=== PATIENT | female | born 1935 | race Caucasian/White ===

== ENCOUNTER → 2016-12-16 | Outpatient (CLI) | payer MEDICARE, OTHER | LOC: M WUC 08:40 | PROVIDERS: ATTEND Nurse Practitioner Adult Health | DX: E11.9 Type 2 diabetes mellitus without complications (principal); E03.9 Hypothyroidism, unspecified; E55.9 Vitamin D deficiency, unspecified; E53.8 Deficiency of other specified B group vitamins ==

== ENCOUNTER → 2017-07-01 | Outpatient (REF) | payer MEDICARE, OTHER ==
[2017-07-01 12:41] LABS: MEAN CORPUSCULAR HGB CONC 32.1 g/dl (32.0-36.5); MEAN CORPUSCULAR VOLUME 99.5 fl (80.0-96.0); PLATELET COUNT, AUTOMATED 288 10^3/uL (150-450); RED CELL DISTRIBUTION WIDTH 12.9 % (11.5-14.5); WHITE BLOOD COUNT 8.4 10^3/uL (4.0-10.0)
[2017-07-01 13:28] LABS: ALBUMIN 3.6 GM/DL (3.2-5.2); ALBUMIN/GLOBULIN RATIO 0.95 (1.00-1.93); BILIRUBIN,TOTAL 0.5 MG/DL (0.2-1.0); CALCIUM LEVEL 9.5 MG/DL (8.8-10.2); CREATININE FOR GFR 1.33 MG/DL (0.55-1.02); GLOMERULAR FILTRATION RATE 40.6 (>32); POTASSIUM SERUM 4.6 MEQ/L (3.5-5.1); TOTAL PROTEIN 7.4 GM/DL (6.4-8.2)
== END ==
LOC: M SFHCPLAZ 09:16
PROVIDERS: ATTEND Nurse Practitioner Adult Health
DX: Z00.00 Encounter for general adult medical examination without abnormal findings (principal); E03.9 Hypothyroidism, unspecified; E11.9 Type 2 diabetes mellitus without complications; E55.9 Vitamin D deficiency, unspecified

== ENCOUNTER → 2017-12-22 | Outpatient (REF) | payer MEDICARE, OTHER ==
[2017-12-22 13:40] LABS: ESTIMATED AVERAGE GLUCOSE 148 MG/DL (60-110); HEMOGLOBIN A1c 6.8 %
[2017-12-22 13:41] LABS: ALBUMIN 3.6 GM/DL (3.2-5.2); ALBUMIN/GLOBULIN RATIO 0.97 (1.00-1.93); ALKALINE PHOSPHATASE 56 U/L (45-117); ALT/SGPT 22 U/L (12-78); ANION GAP 8 MEQ/L (8-16); AST/SGOT 22 U/L (7-37); BILIRUBIN,TOTAL 0.4 MG/DL (0.2-1.0); BLOOD UREA NITROGEN 20 MG/DL (7-18); CALCIUM LEVEL 9.4 MG/DL (8.8-10.2); CARBON DIOXIDE LEVEL 29 MEQ/L (21-32); CHLORIDE LEVEL 104 MEQ/L (98-107); CREATININE FOR GFR 1.25 MG/DL (0.55-1.30); GLOMERULAR FILTRATION RATE 43.5 (>32); GLUCOSE, FASTING 110 MG/DL (70-100); SODIUM LEVEL 141 MEQ/L (136-145); TOTAL PROTEIN 7.3 GM/DL (6.4-8.2)
[2017-12-22 13:50] LABS: POTASSIUM SERUM 5.2 MEQ/L (3.5-5.1)
[2017-12-22 14:18] LABS: TOTAL 25(OH) VITAMIN D 61.9 NG/ML (30.0-100.0)
== END ==
LOC: M SFHCPLAZ 11:06
DX: E11.9 Type 2 diabetes mellitus without complications (principal); E03.9 Hypothyroidism, unspecified; E55.9 Vitamin D deficiency, unspecified; N28.9 Disorder of kidney and ureter, unspecified
CPT/HCPCS: 84443

== ENCOUNTER → 2018-12-29 | Outpatient (REF) | payer MEDICARE, OTHER ==
[2018-12-29 14:04] LABS: ALBUMIN 3.4 GM/DL (3.2-5.2); BILIRUBIN,TOTAL 0.3 MG/DL (0.2-1.0); CREATININE FOR GFR 1.33 MG/DL (0.55-1.30); CREATININE, URINE 86.5 MG/DL; GLOMERULAR FILTRATION RATE 40.4 (>32); MALB URINE SIEMENS 9.4 MG/L; MAU/CREAT RATIO 10.8 MCG/MG (0.0-30.0); POTASSIUM SERUM 4.9 MEQ/L (3.5-5.1); THYROID STIMULATING HORMONE 1.58 uIU/ML (0.358-3.740); TOTAL 25(OH) VITAMIN D 69.4 NG/ML (30.0-100.0); TOTAL PROTEIN 7.5 GM/DL (6.4-8.2)
[2018-12-29 14:19] LABS: HEMOGLOBIN A1c 7.3 %
== END ==
LOC: M SFHCPLAZ 11:13
PROVIDERS: ATTEND Nurse Practitioner Adult Health
DX: N28.9 Disorder of kidney and ureter, unspecified (principal); E11.9 Type 2 diabetes mellitus without complications; E03.9 Hypothyroidism, unspecified; E55.9 Vitamin D deficiency, unspecified

== ENCOUNTER → 2019-06-29 | Outpatient (REF) | payer MEDICARE, OTHER ==
[2019-06-29 11:48] LABS: HEMATOCRIT 45.3 % (36.0-47.0); HEMOGLOBIN 13.9 g/dl (12.0-15.5); MEAN CORPUSCULAR HEMOGLOBIN 31.5 pg (27.0-33.0); MEAN CORPUSCULAR HGB CONC 30.7 g/dl (32.0-36.5); MEAN CORPUSCULAR VOLUME 102.7 fl (80.0-96.0); PLATELET COUNT, AUTOMATED 322 10^3/uL (150-450); RED BLOOD COUNT 4.41 10^6/uL (4.00-5.40); WHITE BLOOD COUNT 10.3 10^3/uL (4.0-10.0)
[2019-06-29 12:16] LABS: HEMOGLOBIN A1c 7.4 %
[2019-06-29 12:32] LABS: ALBUMIN 3.7 GM/DL (3.2-5.2); BILIRUBIN,TOTAL 0.5 MG/DL (0.2-1.0); CALCIUM LEVEL 9.8 MG/DL (8.8-10.2); CHOLESTEROL RISK RATIO 1.795 (<5); CREATININE FOR GFR 1.57 MG/DL (0.55-1.30); GLOMERULAR FILTRATION RATE 33.3 (>32); POTASSIUM SERUM 5.4 MEQ/L (3.5-5.1); THYROID STIMULATING HORMONE 4.44 uIU/ML (0.358-3.740); TOTAL PROTEIN 7.5 GM/DL (6.4-8.2)
== END ==
LOC: M SFHCPLAZ 09:22
PROVIDERS: ATTEND Nurse Practitioner Adult Health
DX: E03.9 Hypothyroidism, unspecified (principal); E53.8 Deficiency of other specified B group vitamins; E11.9 Type 2 diabetes mellitus without complications; Z13.220 Encounter for screening for lipoid disorders

== ENCOUNTER 2020-01-04 17:39 | Inpatient (IN) | payer MEDICARE, BC, OTHER ==
[~2020-01-04] VITALS: Ht 175.3 cm; Wt 62.9 kg
--- NOTE | 2020-01-04 18:39 | REP ---
Portable chest x-ray: Sitting AP view. History: Upper chest pain. Findings: The lungs are symmetrically aerated and clear. The pleural angles are sharp. Heart is not enlarged. Pulmonary vasculature is not increased. Impression: No active disease. Electronically Signed by Edinson Garcia MD 01/04/2020 06:30 P
[2020-01-04 18:44] LABS: BASO # 0.1 10^3/uL (0.0-0.2); BASO % 0.8 % (0.0-1.0); EOS # 0.2 10^3/uL (0.0-0.5); EOS % 1.9 % (0.0-3.0); HEMATOCRIT 43.1 % (36.0-47.0); HEMOGLOBIN 13.6 g/dl (12.0-15.5); LYMPH # 1.4 10^3/uL (1.5-5.0); LYMPH % 13.3 % (24.0-44.0); MEAN CORPUSCULAR HEMOGLOBIN 31.2 pg (27.0-33.0); MEAN CORPUSCULAR HGB CONC 31.6 g/dl (32.0-36.5); MEAN CORPUSCULAR VOLUME 98.9 fl (80.0-96.0); MONO # 0.6 10^3/uL (0.0-0.8); MONO % 5.7 % (0.0-5.0); NEUTROPHILS # 8.4 10^3/uL (1.5-8.5); NEUTROPHILS % 77.7 % (36.0-66.0); PLATELET COUNT, AUTOMATED 323 10^3/uL (150-450); RED BLOOD COUNT 4.36 10^6/uL (4.00-5.40); WHITE BLOOD COUNT 10.9 10^3/uL (4.0-10.0)
[2020-01-04] MEDS ORDERED: SERT-138 PO (18:52)
[2020-01-04] MEDS ORDERED: MELO15TA28 PO (18:52)
[2020-01-04] MEDS ORDERED: DONE10TA90 PO (18:52)
[2020-01-04] MEDS ORDERED: OCUVCAP2 PO (18:52)
[2020-01-04] MEDS ORDERED: FISH1000 PO (18:52)
[2020-01-04] MEDS ORDERED: HM V5000 PO (18:52)
[2020-01-04] MEDS ORDERED: CENT1TAB PO (18:52)
[2020-01-04] MEDS ORDERED: METF-838 PO (18:52)
[2020-01-04] MEDS ORDERED: OSTETAB2 PO (18:52)
[2020-01-04] MEDS ORDERED: VITAD400CA PO (18:52)
[2020-01-04] MEDS ORDERED: ECOT81TA5 PO (18:52)
[2020-01-04] MEDS ORDERED: LISI-542 PO (18:52)
[2020-01-04] MEDS ORDERED: LEVO50TA5 PO (18:52)
[2020-01-04] MEDS ORDERED: METF500T13 PO (18:52)
[2020-01-04 18:58] LABS: INR 0.93; PROTHROMBIN TIME 12.2 SECONDS (11.8-14.0)
[2020-01-04 18:59] LABS: PARTIAL THROMBOPLASTIN TIME 24.6 SECONDS (25.0-38.4)
[2020-01-04 19:14] LABS: ALBUMIN 3.4 GM/DL (3.2-5.2); ALT/SGPT 14 U/L (12-78); BILIRUBIN,DIRECT < 0.1 MG/DL (0.0-0.2); BILIRUBIN,TOTAL 0.2 MG/DL (0.2-1.0); BLOOD UREA NITROGEN 36 MG/DL (7-18); CALCIUM LEVEL 9.1 MG/DL (8.8-10.2); CARBON DIOXIDE LEVEL 18 MEQ/L (21-32); CHLORIDE LEVEL 106 MEQ/L (98-107); CK-MB VALUE MASS 1.3 NG/ML (<3.6); CPK CREATINE PHOSPHOKINASE 45 U/L (26-192); CREATININE FOR GFR 1.33 MG/DL (0.55-1.30); GLOMERULAR FILTRATION RATE 40.3 (>32); GLUCOSE, FASTING 160 MG/DL (70-100); LIPASE 100 U/L (73-393); MB/CK RELATIVE INDEX 2.89 (< OR =4); POTASSIUM SERUM 5.1 MEQ/L (3.5-5.1); SODIUM LEVEL 132 MEQ/L (136-145); TOTAL PROTEIN 7.1 GM/DL (6.4-8.2); TROPONIN I < 0.02 NG/ML (< 0.10)
[2020-01-04] MEDS ORDERED: ISOVUE-370 76% 100ML VIAL As Ordered ONE (20:05)
--- NOTE | 2020-01-04 20:55 | REPVR ---
PROCEDURE INFORMATION: Exam: CT Abdomen And Pelvis With Contrast Exam date and time: 01/04/2020 8:16 PM Age: 84 years old Clinical indication: Abdominal pain; Localized; Upper; Additional info: Upper abdominal pain; HX of divertic TECHNIQUE: Imaging protocol: Computed tomography of the abdomen and pelvis with intravenous contrast. Radiation optimization: All CT scans at this facility use at least one of these dose optimization techniques: automated exposure control; mA and/or kV adjustment per patient size (includes targeted exams where dose is matched to clinical indication); or iterative reconstruction. Contrast material: ISOVUE 370; Contrast volume: 100 ml; Contrast route: INTRAVENOUS (IV); COMPARISON: No relevant prior studies available. FINDINGS: Lungs: Bilateral fibrotic changes at both lung bases as well as atelectasis. Semiopaque opacity right lung base may represent atelectasis although a focus of pneumonitis to be excluded clinically. Liver: There is a diffuse decrease in hepatic parenchymal density, consistent with steatosis. Examination of the liver demonstrates a mildly lobular surface contour, and enlargement of the left and caudate lobes, findings which may be consistent with cirrhosis in the appropriate clinical setting. Gallbladder and bile ducts: There are small posterior layering gallstones present. Pericholecystic fluid is likely related to the presence of ascites. Clinical correlation to exclude cholecystitis suggested. Pancreas: Normal. No ductal dilation. Spleen: Normal. No splenomegaly. Adrenals: There is bilateral adrenal hyperplasia. Kidneys and ureters: Small bilateral renal cysts measure up to 13 mm in the right kidney. No follow-up suggested. Stomach and bowel: There is diffuse colonic diverticulosis most pronounced in the sigmoid colon. Boggy appearance of the wall of the gastric body antrum and proximal duodenum may suggest the presence of an antral duodenitis/peptic ulcer disease. Appendix: No evidence of appendicitis. Intraperitoneal space: There is a small amount of free intraperitoneal fluid present. There is free intraperitoneal air demonstrated anteriorly in the pre a patent space as well as in the lower abdomen. Findings worrisome for bowel perforation. Increased density demonstrated in the omentum and adjacent mesentery without nodularity consistent with inflammation possibly related to peritonitis. Vasculature: The aorta demonstrates mild atherosclerotic calcification. Lymph nodes: Unremarkable. No enlarged lymph nodes. Bladder: Unremarkable as visualized. Reproductive: Unremarkable as visualized. Bones/joints: The spine demonstrates moderate degenerative changes. Levoscoliosis. Moderate central spinal stenosis at L2-L3, severe central spinal stenosis at L3-L4 and L4-L5. Status post total hip replacement on the right. Marked degenerative arthropathy left hip joint. Soft tissues: There is a small umbilical hernia. There is no evidence of incarceration. Other findings: Osteoporosis. IMPRESSION: 1. Semiopaque opacity right lung base may represent atelectasis although a focus of pneumonitis to be excluded clinically. 2. There is a diffuse decrease in hepatic parenchymal density, consistent with steatosis. 3. Examination of the liver demonstrates a mildly lobular surface contour, and enlargement of the left and caudate lobes, findings which may be consistent with cirrhosis in the appropriate clinical setting. 4. There is a small amount of free intraperitoneal fluid present. 5. There are small posterior layering gallstones present. Pericholecystic fluid is likely related to the presence of ascites. Clinical correlation to exclude cholecystitis suggested. 6. There is bilateral adrenal hyperplasia. 7. Small bilateral renal cysts. No follow-up suggested. 8. There is free intraperitoneal air demonstrated anteriorly in the pre a patent space as well as in the lower abdomen. Findings worrisome for bowel perforation. No specific localizing signs demonstrated. In the presence of extensive diverticular disease perforated diverticulitis should be considered as well as perforation related to peptic ulcer disease as described above. 9. Increased density demonstrated in the omentum and adjacent mesentery without nodularity consistent with inflammation possibly related to peritonitis. 10. Boggy appearance of the wall of the gastric body antrum and proximal duodenum may suggest the presence of an antral duodenitis/peptic ulcer disease. Electronically signed by: Barrett Santacruz On 01/04/2020 20:54:43 PM
[2020-01-04] MEDS ORDERED: MORPHINE 2 MG/ML 1ML VIAL (J2270) IV ONE (21:00)
[2020-01-04] MEDS ORDERED: PIPERACILLIN/TAZOBACTAM SOD 3.375 GM in D5W MINI-BAG PLUS 50 ML IV ONE (21:30)
--- NOTE | 2020-01-04 21:48 | ECGEPIP ---
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
[2020-01-04 22:38] LABS: CK-MB VALUE MASS 1.4 NG/ML (<3.6); MB/CK RELATIVE INDEX 3.04 (< OR =4); TROPONIN I 0.04 NG/ML (< 0.10)
[2020-01-04] MEDS ORDERED: NS 1,000 ML IV SCH (23:45)
[2020-01-05] VITALS (7 sets, daily range): BP systolic 94–117; BP diastolic 50–83
[2020-01-05] MEDS ORDERED: MORPHINE 2 MG/ML 1ML VIAL (J2270) IV PRN (01:45)
[2020-01-05] MEDS ORDERED: ONDANSETRON 4MG/2ML VIAL IV PRN ×2 (01:45→06:30)
[2020-01-05] MEDS ORDERED: HYDROmorphone HCL 2 MG/ML 1ML VIAL (J1170) As Ordered ONE (02:06)
[2020-01-05] MEDS ORDERED: ONDANSETRON 4MG/2ML VIAL As Ordered ONE (02:07)
[2020-01-05] MEDS ORDERED: dexameTHASONE 4 MG/ML 1ML VIAL (J1100 PER 1MG) As Ordered ONE (02:07)
[2020-01-05] MEDS ORDERED: fentaNYL 100 MCG/2 ML INJECTION (J3010) As Ordered ONE (02:07)
[2020-01-05] MEDS ORDERED: BUPIVACAINE HCL 0.25% 30ML VIAL As Ordered ONE (02:07)
[2020-01-05] MEDS ORDERED: propofoL 200 MG/20 ML VIAL As Ordered ONE (02:07)
[2020-01-05] MEDS ORDERED: BUPIVACAINE/EPIN 0.25% 30 ML VIAL As Ordered ONE (02:07)
[2020-01-05] MEDS ORDERED: ROCURONIUM BROMIDE 50 MG/5 ML VIAL As Ordered ONE ×2 (02:07→04:54)
[2020-01-05] MEDS ORDERED: LIDOCAINE 2% 100MG/5ML SDV (FOR ANES.) As Ordered ONE (02:07)
[2020-01-05] MEDS ORDERED: METF-838 PO (02:11)
[2020-01-05] MEDS: NS 1,000 ML IV SCH ×3 (02:15→16:40)
[2020-01-05] MEDS ORDERED: SUCCINYLCHOLINE 100 MG/5 ML SYRINGE (J0330) As Ordered ONE (03:24)
[2020-01-05] MEDS ORDERED: VASOPRESSIN INJ 20 UNITS/ML VIAL As Ordered ONE (03:32)
[2020-01-05] MEDS ORDERED: PHENYLephrine HCL 500 MCG/5 ML (100MCG/ML) SYRINGE (J2370) As Ordered ONE (03:58)
[2020-01-05] MEDS ORDERED: ZOSYN 3.375GM VIAL (J2543) As Ordered ONE (04:06)
[2020-01-05] MEDS: PIPERACILLIN/TAZOBACTAM SOD 3.375 GM in D5W MINI-BAG PLUS 50 ML IV SCH ×4 (04:13→21:55)
[2020-01-05] MEDS ORDERED: ACETAMINOPHEN 1000MG 100ML IV BTL (OFIRMEV) (J0131 PER 10MG) As Ordered ONE (04:56)
[2020-01-05] MEDS ORDERED: SUGAMMADEX SODIUM 500 MG/5 ML VIAL (BRIDION) As Ordered ONE (04:56)
--- NOTE | 2020-01-05 05:34 | ECGEPIP ---
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
[2020-01-05] MEDS ORDERED: LIDOCAINE 2% JELLY 6 ML SYRINGE As Ordered ONE (05:54)
[2020-01-05] MEDS ORDERED: fentaNYL 100 MCG/2 ML INJECTION (J3010) IV PRN (06:30)
[2020-01-05] MEDS ORDERED: METOCLOPRAMIDE INJ 10MG/2ML VIAL (J2765 PER 1) IV PRN (06:30)
[2020-01-05] MEDS ORDERED: LR 1,000 ML IV SCH (06:30)
[2020-01-05] MEDS: lisinopriL 5 MG TAB PO SCH (09:00)
[2020-01-05] MEDS: LEVOTHYROXINE 100MCG (0.1MG) VIAL IV SCH (10:00)
[2020-01-05] MEDS: PANTOPRAZOLE 40MG VIAL (C9113 PER 1) IV SCH ×2 (10:00→21:55)
[2020-01-05] MEDS: SERTRALINE 100 MG TAB PO SCH (11:37)
[2020-01-05] MEDS ORDERED: ACETAMINOPHEN TAB 650MG DOSE (2X325MG) PO PRN (20:30)
[2020-01-06] VITALS: BP 113/58
[2020-01-06] MEDS: PIPERACILLIN/TAZOBACTAM SOD 3.375 GM in D5W MINI-BAG PLUS 50 ML IV SCH ×4 (03:27→21:29)
[2020-01-06 04:00] VITALS: BP 118/60
[2020-01-06 04:40] LABS: BASO % 0.2 % (0.0-1.0); EOS % 0.1 % (0.0-3.0); HEMATOCRIT 33.1 % (36.0-47.0); HEMOGLOBIN 10.3 g/dl (12.0-15.5); LYMPH # 0.8 10^3/uL (1.5-5.0); LYMPH % 6.1 % (24.0-44.0); MEAN CORPUSCULAR HEMOGLOBIN 30.7 pg (27.0-33.0); MEAN CORPUSCULAR HGB CONC 31.1 g/dl (32.0-36.5); MEAN CORPUSCULAR VOLUME 98.8 fl (80.0-96.0); MONO # 0.7 10^3/uL (0.0-0.8); MONO % 5.1 % (0.0-5.0); NEUTROPHILS # 11.1 10^3/uL (1.5-8.5); NEUTROPHILS % 87.4 % (36.0-66.0); PLATELET COUNT, AUTOMATED 225 10^3/uL (150-450); RED BLOOD COUNT 3.35 10^6/uL (4.00-5.40); WHITE BLOOD COUNT 12.7 10^3/uL (4.0-10.0)
[2020-01-06] MEDS: HumaLOG INSULIN (NovoLOG) PER UNIT SC SCH ×4 (06:00→17:42)
[2020-01-06] MEDS: NS 1,000 ML IV SCH ×2 (06:44→20:05)
[2020-01-06 08:00] VITALS: BP 118/57
[2020-01-06] MEDS: lisinopriL 5 MG TAB PO SCH (08:51)
[2020-01-06] MEDS: LEVOTHYROXINE 100MCG (0.1MG) VIAL IV SCH (08:51)
[2020-01-06] MEDS: PANTOPRAZOLE 40MG VIAL (C9113 PER 1) IV SCH ×2 (08:51→20:04)
[2020-01-06 10:04] LABS: CREATININE FOR GFR 1.24 MG/DL (0.55-1.30); GLOMERULAR FILTRATION RATE 43.7 (>32); MAGNESIUM LEVEL 1.7 MG/DL (1.8-2.4); POTASSIUM SERUM 4.7 MEQ/L (3.5-5.1)
[2020-01-06 12:00] VITALS: BP 133/58
[2020-01-06] MEDS ORDERED: MAG SULF 1GM/100ML (MAG RUN) 1 GM in IV 1 EA IV ONE (12:00)
[2020-01-06] MEDS: SERTRALINE 100 MG TAB PO SCH (12:15)
--- NOTE | 2020-01-06 13:51 | IPN ---
DATE: 01/05/2020 HISTORY: The patient is now approximately 12-15 hours postop from a laparoscopy and limited laparotomy with Ronal patch closure of a perforated duodenal ulcer. She has generally done well following surgery. As a manifestation of her dementia, she reports to me that she had supper earlier today and had tolerated it well. Her confirms that she did not have anything to eat earlier. VITAL SIGNS: Show that she has been afebrile since surgery. Her pulse is in the 80s generally. Her blood pressure is good. Intake and output shows that she has had an adequate urine output with only a small amount from her NG tube. PHYSICAL EXAM: she is awake and alert, but not entirely oriented, but pleasant. Heart exam shows a regular rhythm. The abdomen is flat and nondistended. She has a few bowel sounds at this point. Her dressings are dry and she does have some mild diffuse tenderness. IMPRESSION: The patient is doing well so far soon after her repair of a perforated ulcer. PLAN: We will continue her NG tube. I will cut her IV fluid rate back somewhat at this point. We will follow her NG output and bowel function and plan to remove the NG and advance her diet once she is passing flatus and has bowel sounds. PEÑA
--- NOTE | 2020-01-06 14:55 | CR.PDOC ---
General Date of Consultation: Jan 06, 2020 Referring Provider: Dilip Bhatia Jr Consultation REASON FOR CONSULTATION/CHIEF COMPLAINT: Bigeminy and PVCs. HISTORY OF PRESENT ILLNESS: This is a 84 years old white female past medical history of diabetes mellitus type 2, coronary artery disease, hypertension, valvular heart disease, GERD, hypothyroidism, anxiety, history of temporal arteritis lung disorder, colitis, basal cell carcinomas, Moderately severe cerebral atrophy osteoarthritis was admitted with perforated duodenal ulcer was taken to our and the perforation was paged by surgery. We were called in as patient was found to have a bigeminy and PVCs when RN put the cardiac to get the rhythm as he had felt patient's pulse irregular. Patient is comfortable, complaining of some abdominal pain but no chest pain, shortness of breath, nausea, vomiting, etc.. ALLERGIES: Please see below. HOME MEDICATIONS: Please see below. PAST MEDICAL HISTORY: diabetes mellitus type 2, coronary artery disease, hypertension, valvular heart disease, GERD, hypothyroidism, anxiety, history of temporal arteritis lung disor sasha, colitis, basal cell carcinomas. Moderately severe cerebral atrophy , osteoarthritis PAST SURGICAL HISTORY: Basal cell cancer excision, right hip replacement, left eye laser surgery left eye cataract extraction, right eye cataract extraction, right, Coppertone the release, left rotator cuff repair, right ankle surgery, bunionectomy, bilateral, deviated nasal septum repair, hysterectomy with bilateral salpingo-oophorectomy, tonsillectomy, adenoidectomy and a cardiac cath FAMILY HISTORY: Mother had Alzheimer's disease SOCIAL HISTORY: Lives with her spouse. Denies smoking, alcohol or drug abuse REVIEW OF SYSTEMS: CONSTITUTIONAL: No fever, headache. HEENT: No eye area pain. CARDIOVASCULAR: No chest pain or palpitation. RESPIRATORY: No shortness of breath or cough. GENITOURINARY: No dysuria, frequency. MUSCULOSKELETAL: No muscle aches and pains. GASTROINTESTINAL: No nausea, vomiting, diarrhea. SKIN: No rash. NEUROLOGICAL: No weakness, or sensory loss. PSYCHIATRIC: No anxiety, depression. ENDOCRINE: History of diabetes. HEMATOLOGIC/LYMPHATIC: No leukemia or lymphoma. ALLERGIC/IMMUNOLOGIC: No history of allergies. PHYSICAL EXAMINATION: VITAL SIGNS: Please see below. GENERAL APPEARANCE: Patient is comfortable, has NG tube in place. Significant care. HEENT: PERRLA. Extraocular muscles intact. RESPIRATORY: Clear to A&P. CARDIOVASCULAR: S1, S2, regular. ABDOMEN: , Soft, nontender. Bowels are present. Mild tenderness in the surgical area. EXTREMITIES: No clubbing, cyanosis edema. NEUROLOGICAL: No focal motor sensory deficit. PSYCHIATRIC: None. Depression. LABORATORY DATA: Please see below. ASSESSMENT/PLAN: #1. Status post duodenal perforation patch repair #2. Benign cardiac arrhythmias such as bigeminy and PVCs, no history of cardiac arrhythmias in the past #3. Hypertension #4 diabetes mellitus 2 #5 hypothyroidism #6. History of valvular heart disease #7. History of for temporal arteritis #8. [id number] dementia #9. Hypomagnesemia Patient is nothing by mouth has NG tube in and being followed by surgery Patient's all home by mouth meds on hold except for lisinopril Patient's Synthroid has been changed to IV, will prefer to change it to by mouth, thyroid profile has been ordered for tomorrow I will start patient on metoprolol 12.5 mg by mouth 4 times a day to suppress the PVCs and bigeminy/trigeminy with holding parameters CBC, CMP, magnesium, thyroid function and EKG has been ordered Place patient on telemetry for 24-48 hours to monitor the cardiac rhythm Continue pain management and DVT prophylaxis as per surgery Fingerstick blood sugar every 6 hours with coverage Thank you for calling this consult. Dr. Bhatia and will gladly follow patient with you. Vital Signs/I&O Vital Signs Date Time Temp Pulse Resp B/P (MAP) Pulse Ox O2 Delivery O2 Flow Rate FiO2 01/06/20 12:00 97.6 52 16 133/58 (83) 96 Room Air 01/06/20 04:00 2.0 I&O- Last 24 Hours up to 6 AM 01/06/20 06:00 Intake Total 4160 ml Output Total 1000 ml Balance 3160 ml Laboratory Data Labs 24H Laboratory Tests 2 01/06/20 00:36: Bedside Glucose (Misc Panel) 114H 01/06/20 04:26: Immature Granulocyte % (Auto) 1.1, Neutrophils (%) (Auto) 87.4H, Lymphocytes (%) (Auto) 6.1L, Monocytes (%) (Auto) 5.1H, Eosinophils (%) (Auto) 0.1, Basophils (%) (Auto) 0.2, Neutrophils # (Auto) 11.1H, Lymphocytes # (Auto) 0.8L, Monocytes # (Auto) 0.7, Eosinophils # (Auto) 0.0, Basophils # (Auto) 0.0, Nucleated Red Blood Cells % (auto) 0.0 01/06/20 05:52: Bedside Glucose (Misc Panel) 95 01/06/20 09:28: Anion Gap 9, Glomerular Filtration Rate 43.7, Calcium Level 8.0L, Magnesium Le josé antonio 1.7L 01/06/20 12:14: Bedside Glucose (Misc Panel) 96 CBC/BMP Laboratory Tests 01/06/20 04:26 01/06/20 09:28 Microbiology Microbiology 01/05/20 Respiratory Virus Panel (PCR) (DENEEN) - Final, Complete 01/04/20 Blood Culture - Preliminary, Resulted No growth after 24 hours . All specim... 01/04/20 Blood Culture - Preliminary, Resulted No growth after 24 hours . All specim... Allergies Coded Allergies: banana (Unverified Allergy, Unknown, 01/04/20) Home Medications Scheduled Aspirin (Ecotrin) 81 Mg Tablet.dr, 81 MG PO QHS, (Reported) C,E,Zinc,Copper 24/Om3/Lut/Job (Ocuvite Adult 50 Plus Softgel) 1 Each Capsule, 1 CAP PO DAILY, (Reported) Cyanocobalamin (Vitamin B-12) (Vitamin B12) 5,000 Mcg Tab.rapdis, 5,000 MCG PO DAILY, (Reported) Donepezil HCl (Donepezil HCl) 10 Mg Tablet, 10 MG PO QHS, (Reported) Glucosam/Gilles-Msm1/C/Joseph/Bosw (Osteo Bi-Flex Caplet) 1 Each Tablet, 1 TAB PO DAILY, (Reported) Levothyroxine Sodium (Levothyroxine Sodium) 50 Mcg Tablet, 50 MCG PO DAILY, (Reported) Lisinopril (Lisinopril) 5 Mg Tablet, 5 MG PO DAILY, (Reported) Meloxicam (Meloxicam) 15 Mg Tablet, 15 MG PO DAILY, (Reported) Metformin HCl (Metformin HCl ER) 500 Mg Tab.er.24h, 1,000 MG PO DAILY, (Reported) Metformin HCl (Metformin HCl ER) 500 Mg Tab.er.24h, 500 MG PO QPM, (Reported) Multivit-Min/FA/Lycopen/Lutein (Centrum Silver Tablet) 1 Each Tablet, 1 TAB PO DAILY, (Reported) Bone Gap-3 Fatty Acids/Fish Oil (Fish Oil 1,000 mg Capsule) 1 Each Capsule, 1 CAP PO DAILY, (Reported) Sertraline HCl (Sertraline HCl) 100 Mg Tablet, 100 MG PO DAILY, (Reported) @ NOON Vitamin D (Vitamin D3) 10 Mcg Tablet, 400 MCG PO DAILY, (Reported) ROBERTO MUÑIZ MD Jan 06, 2020 14:55
[2020-01-06] MEDS ORDERED: DEXTROSE 50% 50 ML SYRINGE IV PRN (15:00)
[2020-01-06] MEDS ORDERED: GLUCAGON INJ 1MG VIAL SC PRN (15:00)
[2020-01-06] MEDS ORDERED: HumaLOG INSULIN (NovoLOG) PER UNIT SC SCH (15:00)
[2020-01-06] MEDS ORDERED: GLUCOSE 4GM CHEW TABLET PO PRN (15:00)
[2020-01-06 16:00] VITALS: BP 114/57
[2020-01-06] MEDS: METOPROLOL TART 12.5 MG PER 1/2 TAB PO SCH (17:35)
--- NOTE | 2020-01-06 18:39 | IPN ---
DATE: 01/06/2020 The patient overall has been stable overnight. Unfortunately she pulled out her nasogastric (NG) tube because of confusion overnight a couple times. This was reinserted. The NG tube really has not been putting out all that much. She has not had any diarrhea. No constipation but really has not had any bowel movements yet. She states that she does have some discomfort of her abdomen but really is not complaining of any significant pain at this time. Her vital signs have been good, although while I was seeing her, she has started developing several irregular beats and had some tachycardia, and I consulted the hospitalist for the cardiac issues. No complaints of chest pain. Her vital signs otherwise have been nicely stable. Her pulse oximetry shows 98 on room air, and blood pressure has been stable. Her intake and output show no significant NG output. Urine output has been adequate. PHYSICAL EXAMINATION: Reveals an 84-year-old female who looks somewhat confused but is orienting with direction. Still does not realize that she had an operation yesterday. Her abdomen is soft, nontender, nondistended. IMPRESSION AND PLAN: The patient has not had a significant amount of NG output, and thus if she removes her NG tube again, we may consider keeping this out. We will just have to watch how much she puts out the rest of the day, and otherwise her urine output has been good. The hospitalist will make some recommendations concerning cardiac issues and testing, and otherwise from a surgical standpoint we are making typical progress at this time. Frequently with perforated ulcer and the acid that is associated with perfusing the general abdominal contents/bowel, there is sometimes some a slight delay in gastrointestinal (GI) function. We will just have to see how this goes over the next 24-48 hours, but otherwise no new significant or concerning issues at this time.
[2020-01-06 19:47] VITALS: BP 119/63
[2020-01-07] VITALS: BP 143/63
[2020-01-07] MEDS: METOPROLOL TART 12.5 MG PER 1/2 TAB PO SCH ×4 (00:54→18:21)
[2020-01-07 04:00] VITALS: BP 147/63
[2020-01-07] MEDS: PIPERACILLIN/TAZOBACTAM SOD 3.375 GM in D5W MINI-BAG PLUS 50 ML IV SCH ×4 (04:40→21:02)
[2020-01-07 05:42] LABS: BASO # 0.1 10^3/uL (0.0-0.2); BASO % 0.4 % (0.0-1.0); EOS # 0.2 10^3/uL (0.0-0.5); HEMATOCRIT 33.4 % (36.0-47.0); HEMOGLOBIN 10.4 g/dl (12.0-15.5); LYMPH # 1.1 10^3/uL (1.5-5.0); LYMPH % 7.3 % (24.0-44.0); MEAN CORPUSCULAR HGB CONC 31.1 g/dl (32.0-36.5); MEAN CORPUSCULAR VOLUME 99.4 fl (80.0-96.0); MONO # 0.6 10^3/uL (0.0-0.8); MONO % 3.7 % (0.0-5.0); NEUTROPHILS # 13.4 10^3/uL (1.5-8.5); NEUTROPHILS % 86.7 % (36.0-66.0); PLATELET COUNT, AUTOMATED 275 10^3/uL (150-450); RED BLOOD COUNT 3.36 10^6/uL (4.00-5.40); WHITE BLOOD COUNT 15.4 10^3/uL (4.0-10.0)
[2020-01-07] MEDS: HumaLOG INSULIN (NovoLOG) PER UNIT SC SCH ×4 (06:00→18:00)
[2020-01-07 06:29] LABS: ALBUMIN 2.2 GM/DL (3.2-5.2); BILIRUBIN,TOTAL 0.6 MG/DL (0.2-1.0); CALCIUM LEVEL 8.2 MG/DL (8.8-10.2); CREATININE FOR GFR 1.08 MG/DL (0.55-1.30); FREE THYROXINE INDEX 2.7 % (1.3-4.8); GLOMERULAR FILTRATION RATE 51.2 (>32); POTASSIUM SERUM 4.2 MEQ/L (3.5-5.1); THYROID STIMULATING HORMONE 1.13 uIU/ML (0.358-3.740); THYROXINE (T4) 6.8 UG/DL (4.5-12.0); TOTAL PROTEIN 5.3 GM/DL (6.4-8.2)
[2020-01-07 07:29] VITALS: BP 140/63
[2020-01-07] MEDS: lisinopriL 5 MG TAB PO SCH (09:24)
[2020-01-07] MEDS: LEVOTHYROXINE 100MCG (0.1MG) VIAL IV SCH (09:24)
[2020-01-07] MEDS: PANTOPRAZOLE 40MG VIAL (C9113 PER 1) IV SCH ×2 (09:24→20:47)
--- NOTE | 2020-01-07 10:50 | IPNPDOC ---
Subjective Date Seen The patient was seen on 01/07/20. Subjective Chief Complaint/HPI Patient is comfortable. at the bedside. Offers no new complaints Cardiac patient, she passed gas today General: Denies: ROS Unobtainable, Chills, Night Sweats, Fatigue, Malaise, Normal Appetite, Other Symptoms Constitutional: Denies: Chills, Fever, Malaise, Night Sweats, Weakness, Fatigue, Weight Loss, Lethargy, Other Pulmonary: Denies: Dyspnea, Cough, Pleuritic Chest Pain, Other Symptoms Cardiovascular: Denies: Chest Pain, Palpitations, Orthopnea, Paroxysmal Noc. Dyspnea, Edema, Lt Headedness, Other Symptoms Gastrointestinal: Denies: Nausea, Vomiting, Abdominal Pain, Diarrhea, Constipation, Melena, Hematochezia, Other Symptoms Musculoskeletal: Denies: Neck Pain, Back Pain, Shoulder Pain, Arm Pain, Hand Pain, Leg Pain, Foot Pain, Joint Pain, Muscle Pain, Spasms, Other Symptoms Neurological: Denies: Weakness, Numbness, Incoordination, Change in speech, Confusion, Seizures, Other Symptoms Objective Physical Examination Eye Exam: Positive: PERRLA, Conjunctiva & lids normal ENT Exam: Positive: Atraumatic Neck Exam: Positive: Supple Chest Exam: Positive: Clear to auscultation, Normal air movement Heart Exam: Positive: Rate Normal, Normal S1, Normal S2 Abdomen Exam: Positive: BS Hypoactive, Soft Assessment /Plan Problems (1) Perforated abdominal viscus Problem Text: Patient is nothing by mouth has NG tube in and being followed by surgery Patient's all home by mouth meds on hold except for lisinopril NG tube in place On clinical exam. She has a hyperactive bowel sounds but a cardiac patient, she passed gas Surgical follow-up pending, further, as per surgical recommendation (2) PVC's (premature ventricular contractions) Status: Acute Problem Text: Probably chronic bigeminy and PVCs but patient is in normal sinus rhythm with control and rate She seems to have responded very well to metoprolol 12.5 mg by mouth every 6 hours On discharge, she can go home on metoprolol tartrate 25 mg by mouth every 12 hours (3) Hypomagnesemia Status: Acute Problem Text: Corrected with magnesium supplement (4) Hypothyroid Status: Chronic Problem Text: On IV Synthroid half the dose once patient has been taken orally Change Synthroid to by mouth once she is started on by mouth intake (5) Diabetes mellitus Status: Chronic Problem Text: Fingerstick blood sugar every 6 hours with coverage Will change it to nightly sine chest once she is orally taking her meals Will also restart all home meds once she has by mouth intake (6) HTN (hypertension) Status: Chronic Problem Text: Under well control with current meds Plan/VTE VTE Prophylaxis Ordered?: Yes VS, I&O, 24H, Fishbone Vital Signs/I&O Vital Signs Date Time Temp Pulse Resp B/P (MAP) Pulse Ox O2 Delivery O2 Flow Rate FiO2 01/07/20 09:24 140/96 01/07/20 07:29 97.1 76 16 90 Room Air 01/06/20 04:00 2.0 I&O- Last 24 Hours up to 6 AM 01/07/20 06:00 Intake Total 1465 ml Output Total 825 ml Balance 640 ml Laboratory Data 24H LABS Laboratory Tests 2 01/06/20 12:14: Bedside Glucose (Misc Panel) 96 01/06/20 17:41: Bedside Glucose (Misc Panel) 107 01/07/20 00:28: Bedside Glucose (Misc Panel) 101 01/07/20 04:56: Immature Granulocyte % (Auto) 0.9, Neutrophils (%) (Auto) 86.7H, Lymphocytes (%) (Auto) 7.3L, Monocytes (%) (Auto) 3.7, Eosinophils (%) (Auto) 1.0, Basophils (%) (Auto) 0.4, Neutrophils # (Auto) 13.4H, Lymphocytes # (Auto) 1.1L, Monocytes # (Auto) 0.6, Eosinophils # (Auto) 0.2, Basophils # (Auto) 0.1, Nucleated Red Blood Cells % (auto) 0.0, Anion Gap 9, Glomerular Filtration Rate 51.2, Calcium Level 8.2L, Magnesium Level 2.0, Total Bilirubin 0.6#, Aspartate Amino Transf (AST/SGOT) 28, Alanine Aminotransferase (ALT/SGPT) 22, Alkaline Phosphatase 57, Total Protein 5.3#L, Albumin 2.2#L, Albumin/Globulin Ratio 0.7L, Thyroid Stimulating Hormone (TSH) 1.130, Free Thyroxine Index 2.7, Thyroxine (T4) 6.8, Triiodothyronine (T3) Uptake 39 CBC/BMP Laboratory Tests 01/07/20 04:56 Microbiology Microbiology 01/05/20 Respiratory Virus Panel (PCR) (DENEEN) - Final, Complete 01/04/20 Blood Culture - Preliminary, Resulted No Growth after 48 hours. All Specime... 01/04/20 Blood Culture - Preliminary, Resulted No Growth after 48 hours. All Specime... ROBERTO MUÑIZ MD Jan 07, 2020 10:50
[2020-01-07 12:00] VITALS: BP 149/66
[2020-01-07] MEDS: SERTRALINE 100 MG TAB PO SCH (12:36)
[2020-01-07] MEDS: NS 1,000 ML IV SCH ×2 (13:32→16:00)
[2020-01-07 16:00] VITALS: BP 147/60
[2020-01-07 20:00] VITALS: BP 148/67
[2020-01-08] VITALS: BP 142/70
[2020-01-08] MEDS: METOPROLOL TART 12.5 MG PER 1/2 TAB PO SCH ×2 (00:21→06:20)
[2020-01-08] MEDS: PIPERACILLIN/TAZOBACTAM SOD 3.375 GM in D5W MINI-BAG PLUS 50 ML IV SCH ×4 (03:13→21:03)
[2020-01-08 04:00] VITALS: BP 171/76
[2020-01-08] MEDS: SLF 3 ML SYR IV SCH ×3 (06:00→21:03)
[2020-01-08] MEDS: HumaLOG INSULIN (NovoLOG) PER UNIT SC SCH ×5 (06:24→21:00)
[2020-01-08] MEDS ORDERED: SLF 3 ML SYR IV PRN (06:45)
--- NOTE | 2020-01-08 08:10 | IPN ---
DATE: 01/07/2020 The patient seems to be comfortable in bed. She still does not realize that she had an operation a few days ago. Her is present at bedside today and overall states that she seems a little bit more oriented and seems more comfortable and less agitated. Her vitals have been stable. Her ins and outs show that she has had decreased nasogastric (NG) output and has had a couple of bowel movements. Her abdomen is scaphoid, nontender and nondistended. IMPRESSION AND PLAN: The patient has had decreasing NG output and has had some bowel movements and I do feel that it is reasonable to discontinue her NG tube. If she does well with this overnight, then start her on a clear liquid diet tomorrow and then progressing her to a regular diet the following day and probable discharge thereafter. The patient's family understands our current plan and agrees with current plan and, slow, but progressive increase in diet. One issue that is noticed is that her white count is up today, but she has been afebrile. Will have to see how this goes over the next 12-24 hours. If she has an increasing white count, the concern obviously would be that she may be developing an abscess and a CAT scan would be warranted at that time.
[2020-01-08 08:26] VITALS: BP_SYST 145; BP_SYST 146; BP_DIAS 80
[2020-01-08] MEDS: PANTOPRAZOLE 40MG VIAL (C9113 PER 1) IV SCH ×2 (09:04→21:02)
[2020-01-08] MEDS: lisinopriL 5 MG TAB PO SCH (09:06)
[2020-01-08] MEDS: LEVOTHYROXINE 50MCG TABLET (0.05MG) PO SCH (09:11)
--- NOTE | 2020-01-08 10:22 | IPNPDOC ---
Subjective Date Seen The patient was seen on 01/08/20. Subjective Chief Complaint/HPI Patient is comfortable. She is trying to clear liquid diets today. No abdominal pain. No cardiac arrhythmias on the monitor General: Reports: ROS Unobtainable Constitutional: Denies: Chills, Fever, Malaise, Night Sweats, Weakness, Fatigue, Weight Loss, Lethargy, Other Pulmonary: Denies: Dyspnea, Cough, Pleuritic Chest Pain, Other Symptoms Cardiovascular: Denies: Chest Pain, Palpitations, Orthopnea, Paroxysmal Noc. Dyspnea, Edema, Lt Headedness, Other Symptoms Gastrointestinal: Denies: Nausea, Vomiting, Abdominal Pain, Diarrhea, Constipation, Melena, Hematochezia, Other Symptoms Musculoskeletal: Denies: Neck Pain, Back Pain, Shoulder Pain, Arm Pain, Hand Pain, Leg Pain, Foot Pain, Joint Pain, Muscle Pain, Spasms, Other Symptoms Neurological: Denies: Weakness, Numbness, Incoordination, Change in speech, Confusion, Seizures, Other Symptoms Objective Physical Examination Eye Exam: Positive: PERRLA, Conjunctiva & lids normal Neck Exam: Positive: Supple Chest Exam: Positive: Clear to auscultation, Normal air movement Heart Exam: Positive: Rate Normal, Normal S1, Normal S2 Abdomen Exam: Positive: BS Hypoactive, Soft Extremity Exam: Positive: Normal pulses Assessment /Plan Problems (1) Perforated abdominal viscus Problem Text: Patient is nothing by mouth has NG tube in and being followed by surgery Patient's all home by mouth meds on hold. Will restart as of today NG tube was removed Patient is patient is trying clear liquid diet Possible advanced to regular diet tomorrow Further, as per surgery (2) PVC's (premature ventricular contractions) Status: Acute Problem Text: Probably chronic bigeminy and PVCs but patient is in normal sinus rhythm with control and rate Patient responded very well to beta blockers. Will change her metoprolol succinate to 25 mg by mouth twice a day No more bigeminy trigeminy is noted. Has occasional PVCs, we'll DC band tier and transferred to [facility] floor Discharge patient home on the current beta heidi dosage (3) Hypomagnesemia Status: Acute Problem Text: Corrected with magnesium supplement (4) Hypothyroid Status: Chronic Problem Text: Change IV Synthroid. 2. Synthroid 50 g by mouth daily (5) Diabetes mellitus Status: Chronic Problem Text: Fingerstick blood sugar every 6 hours with coverage Will change it to nightly sine chest once she is orally taking her meals Will also restart all home meds once she has by mouth intake (6) HTN (hypertension) Status: Chronic Problem Text: She'll blood pressure slightly elevated. She recently has been started on metoprolol 25 mg by mouth twice a day 2. Also increase patient's home medication lisinopril to 10 mg by mouth daily Patient's blood pressure and change medication dosage accordingly Plan/VTE VTE Prophylaxis Ordered?: Yes VS, I&O, 24H, Fishbone Vital Signs/I&O Vital Signs Date Time Temp Pulse Resp B/P (MAP) Pulse Ox O2 Delivery O2 Flow Rate FiO2 01/08/20 09:06 146/80 01/08/20 08:26 98.1 90 18 90 Room Air 01/06/20 04:00 2.0 I&O- Last 24 Hours up to 6 AM 01/08/20 06:00 Intake Total 685 ml Output Total 400 ml Balance 285 ml Laboratory Data 24H LABS Laboratory Tests 2 01/07/20 12:26: Bedside Glucose (Misc Panel) 86 01/07/20 18:10: Bedside Glucose (Misc Panel) 94 01/08/20 00:18: Bedside Glucose (Misc Panel) 101 01/08/20 06:19: Bedside Glucose (Misc Panel) 114H Microbiology Microbiology 01/05/20 Respiratory Virus Panel (PCR) (DENEEN) - Final, Complete 01/04/20 Blood Culture - Preliminary, Resulted No Growth after 72 hours. All specime... 01/04/20 Blood Culture - Preliminary, Resulted No Growth after 72 hours. All specime... ROBERTO MUÑIZ MD Jan 08, 2020 10:22
[2020-01-08] MEDS ORDERED: DEXTROSE 50% 50 ML SYRINGE IV PRN (11:30)
[2020-01-08] MEDS ORDERED: GLUCOSE 4GM CHEW TABLET PO PRN (11:30)
[2020-01-08] MEDS ORDERED: GLUCAGON INJ 1MG VIAL SC PRN (11:30)
[2020-01-08] MEDS: SERTRALINE 100 MG TAB PO SCH (12:41)
--- NOTE | 2020-01-08 12:51 | IPN ---
DATE: 01/08/2020 The patient has been doing well overnight. She had three bowel movements yesterday and overall had no complaints of abdominal pain. She has had no nausea and no vomiting. Does not complain of increased nausea. She has been afebrile overnight. On her physical examm, her abdomen is soft and nontender. Incisions are clean and dry. She is somewhat somnolent this morning. IMPRESSION AND PLAN: The patient is status post repair of perforated gastric ulcer and seems to be making some good progress at this time with the NG tube out. Will start her on some clear liquids. Will see how she does with this Will Hep-Lock her IV to have one less IV that could potentially be pulled out inadvertently. Will get her up moving around more today. I anticipate that she will probably have her diet progressed tomorrow and then possible discharge the following day.
[2020-01-08 15:55] VITALS: BP 160/68
[2020-01-08 16:00] VITALS: BP 130/72
[2020-01-08 20:00] VITALS: BP 136/66
--- NOTE | 2020-01-08 20:26 | ECGEPIP ---
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
[2020-01-08] MEDS: METOPROLOL SUCC *XL* 25MG TAB (TopROL *XL*) PO SCH (21:03)
[2020-01-09 04:00] VITALS: BP 150/70
[2020-01-09] MEDS: PIPERACILLIN/TAZOBACTAM SOD 3.375 GM in D5W MINI-BAG PLUS 50 ML IV SCH ×4 (04:15→21:55)
[2020-01-09 05:47] LABS: BASO # 0.1 10^3/uL (0.0-0.2); BASO % 0.5 % (0.0-1.0); EOS # 0.4 10^3/uL (0.0-0.5); EOS % 3.8 % (0.0-3.0); HEMOGLOBIN 10.4 g/dl (12.0-15.5); LYMPH # 0.9 10^3/uL (1.5-5.0); LYMPH % 9.3 % (24.0-44.0); MEAN CORPUSCULAR HEMOGLOBIN 30.5 pg (27.0-33.0); MEAN CORPUSCULAR HGB CONC 31.5 g/dl (32.0-36.5); MEAN CORPUSCULAR VOLUME 96.8 fl (80.0-96.0); MONO # 0.7 10^3/uL (0.0-0.8); NEUTROPHILS # 7.8 10^3/uL (1.5-8.5); NEUTROPHILS % 78.8 % (36.0-66.0); PLATELET COUNT, AUTOMATED 295 10^3/uL (150-450); RED BLOOD COUNT 3.41 10^6/uL (4.00-5.40); WHITE BLOOD COUNT 9.9 10^3/uL (4.0-10.0)
[2020-01-09] MEDS: SLF 3 ML SYR IV SCH ×3 (05:48→22:00)
[2020-01-09] MEDS: LEVOTHYROXINE 50MCG TABLET (0.05MG) PO SCH (05:48)
[2020-01-09 06:21] LABS: BILIRUBIN,TOTAL 0.4 MG/DL (0.2-1.0); CALCIUM LEVEL 8.2 MG/DL (8.8-10.2); CREATININE FOR GFR 1.13 MG/DL (0.55-1.30); GLOMERULAR FILTRATION RATE 48.6 (>32); POTASSIUM SERUM 3.5 MEQ/L (3.5-5.1); TOTAL PROTEIN 5.1 GM/DL (6.4-8.2)
[2020-01-09 07:33] VITALS: BP 142/76
[2020-01-09] MEDS: PANTOPRAZOLE 40MG VIAL (C9113 PER 1) IV SCH ×2 (08:37→21:54)
[2020-01-09] MEDS: HumaLOG INSULIN (NovoLOG) PER UNIT SC SCH ×4 (08:38→21:00)
[2020-01-09] MEDS: METOPROLOL SUCC *XL* 25MG TAB (TopROL *XL*) PO SCH ×2 (08:41→21:55)
[2020-01-09] MEDS: lisinopriL 10 MG TAB PO SCH (08:42)
[2020-01-09] MEDS: SERTRALINE 100 MG TAB PO SCH (12:37)
[2020-01-09 15:38] VITALS: BP 149/68
[2020-01-09 20:00] VITALS: BP 134/84
[2020-01-10] VITALS: BP 142/68
[2020-01-10 04:00] VITALS: BP 149/68
[2020-01-10] MEDS: PIPERACILLIN/TAZOBACTAM SOD 3.375 GM in D5W MINI-BAG PLUS 50 ML IV SCH ×4 (04:52→21:11)
[2020-01-10] MEDS: SLF 3 ML SYR IV SCH ×3 (06:36→21:11)
[2020-01-10] MEDS: LEVOTHYROXINE 50MCG TABLET (0.05MG) PO SCH (06:36)
[2020-01-10 08:00] VITALS: BP 144/68
[2020-01-10] MEDS: PANTOPRAZOLE 40MG VIAL (C9113 PER 1) IV SCH ×2 (08:18→21:10)
[2020-01-10] MEDS: METOPROLOL SUCC *XL* 25MG TAB (TopROL *XL*) PO SCH ×2 (08:18→21:10)
[2020-01-10] MEDS: HumaLOG INSULIN (NovoLOG) PER UNIT SC SCH ×4 (08:18→21:00)
[2020-01-10] MEDS: lisinopriL 10 MG TAB PO SCH (08:19)
--- NOTE | 2020-01-10 11:50 | RO ---
DATE OF PROCEDURE: 01/05/2020 PREOPERATIVE DIAGNOSIS: Perforated abdominal viscus. POSTOPERATIVE DIAGNOSIS: Perforated duodenal ulcer. PROCEDURE PERFORMED: Laparoscopy with lysis of adhesions, laparotomy with Ronal patch closure of perforated duodenal ulcer. SURGEON: Dr. Broderick Worley ANESTHESIA: General. INDICATIONS FOR PROCEDURE: The patient is an 84-year-old woman who presented to the emergency department on the late evening of January 03. She had noted the onset fairly suddenly of abdominal discomfort in the afternoon of the . In the emergency department, she was found to have tenderness in the abdomen fairly diffusely. Laboratory studies showed mild elevation of the white blood cell count. A CT scan revealed free air within the abdomen in a distribution that seemed to be primarily in the upper abdomen. I was consulted and she is now for laparoscopy and possible laparotomy for a perforated viscus. I believe the distribution of free air suggests a probable perforated ulcer. OPERATIVE PROCEDURE: The patient was brought to the operating room and placed on the table in a supine position. She was placed under general endotracheal anesthesia. The patient's abdomen was prepped and draped in a sterile fashion. 0.25% Marcaine was infiltrated at the trocar sites as needed. A short transverse incision was made just below and to the left of the umbilicus. A Veress needle was inserted and after positive hanging drop test the abdomen was inflated with carbon dioxide gas. A 5 mm camera was placed through a 5 mm port and inserted through the abdominal wall without difficulty. Initial examination showed some exudate scattered primarily in the upper abdomen with some lightly bilious appearing fluid above the liver on the right. A 12 mm port was placed about 8- 10 cm superior and to the left of the first trocar and a third trocar which was 5 mm was placed in the lower portion of the right upper quadrant. Two additional ports were subsequently placed, a 5 mm port in the far lateral right upper quadrant and a 5 mm port in the left midabdomen. The abdomen was initially inspected briefly using a grasper and a suction urologist physician was used to clear some fibrinous exudate that was scattered over the surface of the liver and to the undersurface of the diaphragm on the right. Some material was identified on the undersurface of the liver as well as over anterior to the stomach. The lower quadrants appeared to have little to no evidence of contamination. Inspection continued. The undersurface of the liver had some contamination identified and the findings were most consistent with a perforated ulcer. As the inspection was carried further to the right beneath the right lobe of the liver, a definite perforation was identified in the anterior wall of the duodenum approximately at the junction of the first and second portions of the duodenum. This was difficult to see as it was on the lateral wall of the duodenum to some extent. The additional ports were placed at this point to insert a liver retractor so that the right lobe of the liver and gallbladder could be elevated away. There were some adhesions of the gallbladder posteriorly which prevented complete elevation. There were a few adhesions of the omentum in the right upper quadrant laterally and some of these were freed to bring a piece of omentum over to the area of perforation. At this point, I attempted briefly to place the sutures for a Ronal patch closure of her perforation. With some difficulty, I was able to place one suture across the ulcer. However, it proved very difficult given the location of the ulceration as well as the placement of our trocars to achieve the view necessary to perform the patch closure. At this point, I elected to make a short right upper quadrant paramedian incision through one of the trocar sites in this position to allow better exposure and a more rapid closure of her ulcer. An incision was made longitudinally. The rectus muscle fibers were spread and the posterior fascia opened nicely exposing the ulcer for closure. The one suture that had been placed was preserved. Two additional #2-0 silk sutures were placed, one at the top aspect of the ulcer and one just below the inferior edge of the ulcer. A frond of omentum was folded across this area and then held in place by tying down the three sutures. The abdomen was then copiously irrigated with warm saline. Much of the contamination had been removed even prior to beginning the patch closure. The irrigation was removed as thoroughly as possible. The remaining trocars were removed. The posterior fascia in the paramedian incision was closed with a running suture of #1 Vicryl. The muscles were allowed to come together and the anterior fascia was closed with interrupted simple sutures of #1 Vicryl. The skin incisions were all closed with buried #4- 0 Vicryl and Steri-Strips. Light dressings were applied. The patient tolerated the procedure well without apparent complication. A nasogastric tube was placed by anesthesia at the conclusion of the procedure. She was then awakened in the operating room, extubated and moved to the recovery room in stable condition. PEÑA
[2020-01-10] MEDS: SERTRALINE 100 MG TAB PO SCH (11:55)
[2020-01-10] MEDS ORDERED: PROTPAK PO (14:51)
[2020-01-10 15:33] VITALS: BP 133/64
[2020-01-10 20:00] VITALS: BP 138/68
[2020-01-11] MEDS: LEVOTHYROXINE 50MCG TABLET (0.05MG) PO SCH (06:30)
[2020-01-11] MEDS: SLF 3 ML SYR IV SCH (06:30)
[2020-01-11] MEDS: HumaLOG INSULIN (NovoLOG) PER UNIT SC SCH (07:59)
[2020-01-11 08:00] VITALS: BP_SYST 132; BP_DIAS 72; BP_DIAS 82
[2020-01-11] MEDS: PANTOPRAZOLE 40MG VIAL (C9113 PER 1) IV SCH (08:00)
[2020-01-11] MEDS: METOPROLOL SUCC *XL* 25MG TAB (TopROL *XL*) PO SCH (08:00)
[2020-01-11] MEDS: lisinopriL 10 MG TAB PO SCH (08:00)
[2020-01-25] MEDS ORDERED: PANT40TA29 PO (18:36)
== END 2020-01-11 09:22 | disposition home or self-care (01) | DRG 331 ==
LOC: EDBD 17:39 → M ED 17:39 → M ED INP 01-05 01:44 → M PCU 01-05 07:22
PROVIDERS: ADMIT Surgery; ATTEND Surgery
PROC: 0DU907Z Supplement Duodenum with Autologous Tissue Substitute, Open Approach (ICD-10-PCS; principal; 2020-01-06)
DX: K26.5 Chronic or unspecified duodenal ulcer with perforation (principal); F03.90 Unspecified dementia, unspecified severity, without behavioral disturbance, psychotic disturbance, mood disturbance, and anxiety; E11.9 Type 2 diabetes mellitus without complications; I10 Essential (primary) hypertension; I25.10 Atherosclerotic heart disease of native coronary artery without angina pectoris; K21.9 Gastro-esophageal reflux disease without esophagitis; E03.9 Hypothyroidism, unspecified; F41.9 Anxiety disorder, unspecified; M19.90 Unspecified osteoarthritis, unspecified site; Z85.828 Personal history of other malignant neoplasm of skin; Z96.641 Presence of right artificial hip joint; G31.9 Degenerative disease of nervous system, unspecified; E83.42 Hypomagnesemia; Z79.82 Long term (current) use of aspirin; Z79.899 Other long term (current) drug therapy; Z53.31 Laparoscopic surgical procedure converted to open procedure

== ENCOUNTER 2020-01-25 14:45 | Inpatient (IN) | payer MEDICARE, BC, OTHER ==
[~2020-01-25] VITALS: Ht 162.6 cm; Wt 55.5 kg
[~2020-01-25 14:45] MED LIST: CENT1TAB PO; DONE10TA90 PO; ECOT81TA5 PO; FISH1000 PO; HM V5000 PO; LEVO50TA5 PO; LISI-542 PO; MELO15TA28 PO; METF-838 PO; METF500T13 PO; OCUVCAP2 PO; OSTETAB2 PO; PROTPAK PO; SERT-138 PO; VITAD400CA PO
[2020-01-25 15:29] LABS: BASO % 0.3 % (0.0-1.0); HEMATOCRIT 33.7 % (36.0-47.0); HEMOGLOBIN 10.4 g/dl (12.0-15.5); LYMPH # 0.7 10^3/uL (1.5-5.0); LYMPH % 4.9 % (24.0-44.0); MEAN CORPUSCULAR HEMOGLOBIN 31.2 pg (27.0-33.0); MEAN CORPUSCULAR HGB CONC 30.9 g/dl (32.0-36.5); MEAN CORPUSCULAR VOLUME 101.2 fl (80.0-96.0); MONO # 0.9 10^3/uL (0.0-0.8); MONO % 6.7 % (0.0-5.0); NEUTROPHILS # 11.6 10^3/uL (1.5-8.5); NEUTROPHILS % 87.3 % (36.0-66.0); PLATELET COUNT, AUTOMATED 421 10^3/uL (150-450); RED BLOOD COUNT 3.33 10^6/uL (4.00-5.40); WHITE BLOOD COUNT 13.2 10^3/uL (4.0-10.0)
[2020-01-25 15:56] LABS: CALCIUM LEVEL 9.3 MG/DL (8.8-10.2); CREATININE FOR GFR 1.38 MG/DL (0.55-1.30); GLOMERULAR FILTRATION RATE 38.6 (>32); MB/CK RELATIVE INDEX 2.22 (< OR =4); POTASSIUM SERUM 4.9 MEQ/L (3.5-5.1); TROPONIN I 0.03 NG/ML (< 0.10)
[2020-01-25] MEDS ORDERED: ISOVUE-370 76% 100ML VIAL As Ordered ONE (16:41)
--- NOTE | 2020-01-25 17:19 | REPVR ---
PROCEDURE INFORMATION: Exam: CT Angiography Chest With Contrast Exam date and time: 01/25/2020 5:01 PM Age: 84 years old Clinical indication: Shortness of breath; Prior surgery; Surgery date: <1 month; Surgery type: Ulcer repair; Additional info: SOB; Post operative; R/O pe TECHNIQUE: Imaging protocol: Computed tomographic angiography of the chest with intravenous contrast. 3D rendering: MIP and/or 3D reconstructed images were created by the technologist. Radiation optimization: All CT scans at this facility use at least one of these dose optimization techniques: automated exposure control; mA and/or kV adjustment per patient size (includes targeted exams where dose is matched to clinical indication); or iterative reconstruction. Contrast material: ISOVUE 370; Contrast volume: 75 ml; Contrast route: INTRAVENOUS (IV); COMPARISON: CR PORTABLE CHEST X-RAY 01/25/2020 3:00 PM FINDINGS: Pulmonary arteries: Normal. No pulmonary emboli. Aorta: Unremarkable. No aortic aneurysm. No aortic dissection. Lungs: See "Pleural space" finding. Pleural space: Moderate size right pleural effusion. Small left pleural effusion. Ground-glass opacities in bilateral upper lobes. compressive atelectasis and the right lung base. Heart: Unremarkable. No cardiomegaly. No pericardial effusion. Lymph nodes: Unremarkable. No enlarged lymph nodes. Bones/joints: Degenerative changes of the spine. Soft tissues: Unremarkable. IMPRESSION: 1. No pulmonary embolism. 2. Moderate size right and small left pleural effusion with compressive atelectasis at the right lung base. 3. There is patchy ground-glass opacification in bilateral upper lobes. Etiology infectious/inflammatory/edema. Electronically signed by: Nish Hayes On 01/25/2020 17:19:30 PM
[2020-01-25] MEDS ORDERED: VANCOMYCIN HCL 1,250 MG in IV FLUID PLACE HOLDER 1 EA IV ONE (17:45)
[2020-01-25] MEDS ORDERED: DOXYCYCLINE HYCLATE 100 MG in D5W MINI-BAG PLUS 100 ML IV ONE (17:45)
[2020-01-25] MEDS ORDERED: cefTRIAXone SOD 1 GM in D5W MINI-BAG PLUS 50 ML IV ONE (17:45)
--- NOTE | 2020-01-25 17:48 | REP ---
REASON FOR EXAM: Cough and dyspnea. COMPARISON: The latest prior, 01/04/2020, also portable. The technique utilized in obtaining the radiograph has magnified the cardiac silhouette and accentuated the interstitial markings. Since the last examination, bibasilar opacities have developed with bilateral CP angle blunting, right greater than left. There is a diffuse increase in the interstitial markings throughout the lung may. There is no significant change in appearance of the osseous structures. IMPRESSION: Bilateral pleural effusions, right greater than left, with bibasilar opacities, pneumonia/atelectasis seen in conjunction with probable diffuse interstitial edema superimposed upon chronic fibrotic change. This would need to be correlated clinically. Electronically Signed by Oral Bradshaw DO 01/26/2020 11:22 A
[2020-01-25] MEDS ORDERED: ACETAMINOPHEN TAB 650MG DOSE (2X325MG) PO PRN (18:15)
--- NOTE | 2020-01-25 18:28 | HPEPDOC ---
General Date of Admission 01/25/20 Date of Service: Jan 25, 2020 Chief Complaint The patient is a 84-year-old female admitted with a reason for visit of Weakness. Source: Patient Exam Limitations: Dementia Timing/Duration: Week(s) Severity: Moderate Associated Symptoms: Weakness History of Present Illness Patient is 84 years old female with past medical history of diabetes mellitus type 2, Alzheimer diseases, coronary artery disease, hypertension, valvular heart disease, GERD, hypothyroidism, anxiety, history of temporal arteritis lung disorder, colitis, basal cell carcinomas, Moderately severe cerebral atrophy osteoarthritis presented to the hospital with increased shortness of breath and generalized weakness. Of note around 2 weeks ago patient was hospitalized perforated duodenal ulcer. Dr. Worley performed surgery. According to her after discharge from the hospital 2 weeks ago patient developed generalized weakness and slowly increase shortness of breath with o rthopnea and increased leg swelling. Patient didn't have any chest pain, fever, chills, sputum. In the ER patient was found to have leukocytosis of 13.2, BNP around 30,000, CT showed No pulmonary embolism, Moderate size right and small left pleural effusion with compressive atelectasis at the right lung base, there is patchy ground-glass opacification in bilateral upper lobes. Home Medications Scheduled Aspirin (Ecotrin) 81 Mg Tablet.dr, 81 MG PO QHS, (Reported) Cyanocobalamin (Vitamin B-12) (Vitamin B12) 5,000 Mcg Tab.rapdis, 5,000 MCG PO DAILY, (Reported) Donepezil HCl (Donepezil HCl) 10 Mg Tablet, 10 MG PO QPM, (Reported) Glucosam/Gilles-Msm1/C/Joseph/Bosw (Osteo Bi-Flex Caplet) 1 Each Tablet, 1 TAB PO DAILY, (Reported) Levothyroxine Sodium (Levothyroxine Sodium) 50 Mcg Tablet, 50 MCG PO DAILY, (Reported) Lisinopril (Lisinopril) 5 Mg Tablet, 5 MG PO DAILY, (Reported) Metformin HCl (Metformin HCl ER) 500 Mg Tab.er.24h, 1,000 MG PO DAILY, (Re ported) Metformin HCl (Metformin HCl ER) 500 Mg Tab.er.24h, 500 MG PO QPM, (Reported) Multivit-Min/FA/Lycopen/Lutein (Centrum Silver Tablet) 1 Each Tablet, 1 TAB PO DAILY, (Reported) [place]-3 Fatty Acids/Fish Oil (Fish Oil 1,000 mg Capsule) 1 Each Capsule, 1 CAP PO DAILY, (Reported) Pantoprazole Sodium (Pantoprazole Sodium) 40 Mg Tablet.dr, 40 MG PO BID, (Reported) Sertraline HCl (Sertraline HCl) 100 Mg Tablet, 100 MG PO DAILY, (Reported) @ NOON Vitamin D (Vitamin D3) 10 Mcg Tablet, 400 UNIT PO DAILY, (Reported) Allergies Coded Allergies: banana (Unverified Allergy, Unknown, 01/04/20) Past Medical History Medical History DM2 CORONARY ARTERY DISEASE HYPERTENSION VALVULAR HEART DISEASE GERD HYPOTHYROIDISM ANXIETY, Alzheimer's diseases HISTORY OF TEMPORAL ARTERITIS COMPLETED THE PREDNISONE December LUNG DISORDER, FNA OF SUBPLEURAL MASS LEFT LUNG 06/21 FIBRO INFLAMMATORY PROCESS WORKUP IN [place] NEGATIVE PER PATIENT DIVERTICULOSIS OF THE COLON COLONOSCOPY [place] JUNE 2011 HAS COLITIS BASAL CELL CARCINOMA OF FOREHEAD MMSE 01/08/15, CT HEAD 09/18/15 MODERATE SEVERE CEREBRAL ATROPHY MILD COGNITIVE IMPAIRMENT NEUROLOGY 12/2017 XRAY OF THE LEFT HIP SEVERE OSTEOARTHRTIS BONE ON BONE REFUSES OPERATION Surgical History BASAL CELL CANCER EXCISION 05/30/2013 TOTAL RIGHT HIP REPLACEMENT 08/29/2012 LEFT EYE LASER SURGERY 04/14/2004 LEFT EYE CATARACT EXTRACTION 10/17/2003 RIGHT EYE CATARACT EXTRACTION 09/18/2003 RIGHT CARPAL TUNNEL RELEASE 01/31/2003 LEFT ROTATOR CUFF REPAIR 04/15/2001 RIGHT ANKLE SURGERY 06/25/1999 BUNIONECTOMY - BILATERAL 01/15/1970 DEVIATED SEPTUM REPAIR 08/18/1949 HYSTERECTOMY BSO WITH COLPORRAPHY 08/06/1999 TONSILLECTOMY & ADNOIDECTOMY 02/27/1936 HEART CATH 03/2011 Family History HODGKIN'S DISEASE (DAUGHTER) - DIAGNOSED AT AGE 49, SHE IS DOING FAIRLY WELL.1 BROTHER- OSTEOARTHRITIS KIDNEY ISSUES NEVER MARRIEDAD - ALZHEIMER'S DISEASE (MOTHER); RELATIVE FROM THIS CONDITION. Social History * Smoker: Denies Alcohol: Denies Drugs: denies A-FIB/CHADSVASC A-FIB History Current/History of A-Fib/PAF?: No Current PO Anticoag Therapy: No Review of Systems Constitutional: Reports: Malaise; Denies: Chills, Fever Eyes: Denies: Pain, Vision change Skin: Denies: Rash, Lesions Pulmonary: Reports: Dyspnea; Denies: Cough Cardiovascular: Denies: Chest Pain Gastrointestinal: Denies: Nausea, Vomiting Genitourinary: Denies: Dysuria Hematologic: Denies: Bruising Endocrine: Denies: Polydipsia, Polyphagia Musculoskeletal: Denies: Neck Pain, Back Pain Neurological: Denies: Weakness Psych: Reports: Memory Issues Physical Examination General Exam: Positive: Alert Eye Exam: Positive: PERRLA ENT Exam: Positive: Atraumatic Neck Exam: Positive: Supple, JVD Chest Exam: Positive: Diminished Heart Exam: Positive: Rate Normal Telemetry: Positive: No significant arrhythmia Abdomen Exam: Positive: Normal bowel sounds Extremity Exam: Positive: Edema (+2) Skin Exam: Positive: Nl turgor and temperature Neuro Exam: Positive: Cranial Nerves 3-12 NL, Reflexes 2+ Psych Exam: Positive: Other (patient has dementia); Negative: Memory Intact Vital Signs Vital Signs Date Time Temp Pulse Resp B/P (MAP) Pulse Ox O2 Delivery O2 Flow Rate FiO2 01/25/20 17:15 97 18 126/74 (91) 99 Room Air 01/25/20 15:09 99.7 Laboratory Data Labs 24H Laboratory Tests 2 01/25/20 15:12: Immature Granulocyte % (Auto) 0.8, Neutrophils (%) (Auto) 87.3H, Lymphocytes (%) (Auto) 4.9L, Monocytes (%) (Auto) 6.7H, Eosinophils (%) (Auto) 0.0, Basophils (%) (Auto) 0.3, Neutrophils # (Auto) 11.6H, Lymphocytes # (Auto) 0.7L, Monocytes # (Auto) 0.9H, Eosinophils # (Auto) 0.0, Basophils # (Auto) 0.0, Nucleated Red Blood Cells % (auto) 0.0, D-Dimer, Quantitative > 4000H, Anion Gap 9, Glomerular Filtration Rate 38.6, Calcium Level 9.3, Total Creatine Kinase 45, Creatine Kinase MB 1.0, Creatine Kinase MB Relative Index 2.22, Troponin I 0.03, VU-Mqv-O-Type Natriuretic Peptide 54970B 01/25/20 16:26: Lactic Acid Level 2.0 CBC/BMP Laboratory Tests 01/25/20 15:12 Microbiology Microbiology 01/25/20 Blood Culture, Received Pending 01/25/20 Blood Culture, Received Pending Assessment/Plan Patient is 84 years old female with past medical history of diabetes mellitus type 2, Alzheimer diseases, coronary artery disease, hypertension, valvular heart disease, GERD, hypothyroidism, anxiety, history of temporal arteritis lung disorder, colitis, basal cell carcinomas, Moderately severe cerebral atrophy osteoarthritis presented to the hospital with increased shortness of breath and generalized weakness. Of note around 2 weeks ago patient was hospitalized perforated duodenal ulcer. Dr. Worley performed surgery. According to her after discharge from the hospital 2 weeks ago patient developed generalized weakness and slowly increase shortness of breath with orthopnea and increased leg swelling. Patient didn't have any chest pain, fever, chills, sputum. In the ER patient was found to have leukocytosis of 13.2, BNP around 30,000, CT showed No pulmonary embolism, Moderate size right and small left pleural effusion with compressive atelectasis at the right lung base, there is patchy ground-glass opacification in bilateral upper lobes. Problems (1) Acute CHF (congestive heart failure) Status: Acute Problem Text: Patient has orthopnea, plus JVD, BNP around 30,000 with leg swelling I's and O's Lasix IV Echo (2) Pleural effusion Problem Text: CTA showed right-sided pleural effusion and mild left-sided effus ion Could be secondary to CHF, less likely infectious process. Patient does not have fever, chills, no cough, no sputum, lactic acid negative I will discuss with Dr. Kurtz pleuracentesis We'll check TSH (3) HTN (hypertension) Status: Chronic Problem Text: Blood pressures under control Continue home regimen (4) Hypothyroid Status: Chronic (5) CRISTA (acute kidney injury) Status: Acute Problem Text: Most likely prerenal secondary to CHF exacerbation due to intravascular depletion Continue to monitor Plan / VTE VTE Prophylaxis Ordered?: Yes RENÉ RIVAS DO Jan 25, 2020 18:28
[2020-01-25] MEDS ORDERED: PANT40TA3 PO (18:36)
[2020-01-25] MEDS ORDERED: GLUCOSE 4GM CHEW TABLET PO PRN (18:45)
[2020-01-25] MEDS ORDERED: GLUCAGON INJ 1MG VIAL SC PRN (18:45)
[2020-01-25] MEDS ORDERED: DEXTROSE 50% 50 ML SYRINGE IV PRN (18:45)
[2020-01-25] MEDS ORDERED: VANCOMYCIN HCL 750 MG, VIAL MATE ADAPTER 1 EACH in D5W 250 ML IV ONE (19:00)
[2020-01-25 19:59] LABS: MAGNESIUM LEVEL 1.8 MG/DL (1.8-2.4); THYROID STIMULATING HORMONE 3.86 uIU/ML (0.358-3.740)
[2020-01-25] MEDS ORDERED: VANCOMYCIN HCL 500 MG in D5W MINI-BAG PLUS 100 ML IV ONE (20:00)
--- NOTE | 2020-01-25 20:49 | ECGEPIP ---
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
[2020-01-25 21:25] VITALS: BP 145/73
[2020-01-25] MEDS: ASPIRIN 81 MG ENTERIC TAB PO SCH (22:22)
[2020-01-25] MEDS: PANTOPRAZOLE 40MG TAB (PROTONIX) PO SCH (22:22)
[2020-01-25] MEDS: HumaLOG INSULIN (NovoLOG) PER UNIT SC SCH (22:22)
[2020-01-25] MEDS: HEPARIN SOD (PORCINE) 5000UNITS/ML VIAL (J1644 PER 1000UNITS) SC SCH (22:23)
[2020-01-26] VITALS: BP 124/64
[2020-01-26] MEDS: FUROSEMIDE 40MG/4ML VIAL (J1940) IV SCH ×4 (00:28→20:52)
[2020-01-26 04:00] VITALS: BP 111/63
[2020-01-26 05:38] LABS: HEMATOCRIT 29.4 % (36.0-47.0); HEMOGLOBIN 9.2 g/dl (12.0-15.5); MEAN CORPUSCULAR HEMOGLOBIN 31.2 pg (27.0-33.0); MEAN CORPUSCULAR HGB CONC 31.3 g/dl (32.0-36.5); MEAN CORPUSCULAR VOLUME 99.7 fl (80.0-96.0); PLATELET COUNT, AUTOMATED 339 10^3/uL (150-450); RED BLOOD COUNT 2.95 10^6/uL (4.00-5.40); WHITE BLOOD COUNT 10.9 10^3/uL (4.0-10.0)
[2020-01-26] MEDS: LEVOTHYROXINE 50MCG TABLET (0.05MG) PO SCH (05:49)
[2020-01-26 06:15] LABS: ALBUMIN 2.5 GM/DL (3.2-5.2); BILIRUBIN,TOTAL 0.5 MG/DL (0.2-1.0); CALCIUM LEVEL 8.7 MG/DL (8.8-10.2); CREATININE FOR GFR 1.32 MG/DL (0.55-1.30); GLOMERULAR FILTRATION RATE 40.6 (>32); MAGNESIUM LEVEL 1.7 MG/DL (1.8-2.4); POTASSIUM SERUM 4.2 MEQ/L (3.5-5.1)
[2020-01-26] MEDS: HumaLOG INSULIN (NovoLOG) PER UNIT SC SCH ×4 (07:30→20:53)
[2020-01-26 08:00] VITALS: BP 131/59
[2020-01-26] MEDS ORDERED: lisinopriL 5 MG TAB PO SCH (09:00)
--- NOTE | 2020-01-26 09:20 | REP ---
REASON: Followup COMPARISON: Yesterday. There are bibasilar opacities status quo. There is no change in the cardiomediastinal silhouette. There are no new abnormal opacities. There is no change in the osseous structures. IMPRESSION: No significant change. Persistent bibasilar opacities, right greater than left. Electronically Signed by Oral Bradshaw DO 01/26/2020 11:25 A
[2020-01-26] MEDS: PANTOPRAZOLE 40MG TAB (PROTONIX) PO SCH ×2 (10:08→20:51)
[2020-01-26] MEDS: HEPARIN SOD (PORCINE) 5000UNITS/ML VIAL (J1644 PER 1000UNITS) SC SCH ×2 (10:10→20:52)
[2020-01-26 12:00] VITALS: BP 110/61
[2020-01-26] MEDS: SERTRALINE 100 MG TAB PO SCH (12:00)
[2020-01-26] MEDS: METOPROLOL SUCC *XL* 25MG TAB (TopROL *XL*) PO SCH (14:33)
--- NOTE | 2020-01-26 15:57 | CR ---
DATE OF CONSULTATION: 01/26/2020 The patient was seen at the request of Dr. Priest of the hospitalist service for shortness of breath and a pleural effusion. History is obtained from both the patient and her as she has an element of dementia. HISTORY OF PRESENT ILLNESS: The patient is an 84-year-old white female, who was discharged at the end of December, who was found to have a perforated duodenal ulcer and underwent Rnoal patch closure by general surgery. She generally had an uneventful postoperative course and was discharged home. Since her discharge, approximately 3 weeks ago, she has become progressively more weak and more specifically over the last week she has become profoundly weak and short of breath. She is short of breath at rest. Last week, she was short of breath just going from her bed to the bathroom. She has not had a cough and there has been no sputum production. There has been no fevers, chills or sweats. There has been no hemoptysis and no blood-tinged sputum. She does sleep in a flat bed and her states that she is able to recline without being propped up. She does not have any orthopnea or paroxysmal nocturnal dyspnea. He has noted that her legs have been swelling up the last week. She has complained of some vague chest discomfort in the middle of her chest, which comes and goes. He finally brought her to the emergency room because of her profound weakness and shortness of breath. She was found to have a moderate pleural effusion with a brain natriuretic peptide (BNP) of 30,500. A CT angiogram did not show pulmonary embolism. Her D-dimer yesterday was yesterday was greater than 4000, thus prompting the CT angiogram. PAST MEDICAL HISTORY: 1. Diabetes. 2. Hypertension. 3. Gastroesophageal reflux disease. 4. Hypothyroidism. 5. Dementia, probably Alzheimer's. 6. Coronary artery disease. 7. Valvular heart disease. 8. Status post remote myocardial infarction 20 years ago without intervention. I do not see an echocardiogram in this institution to validate valvular disease. PAST SURGERIES: Prior orthopedic procedures including a right hip replacement, left rotator cuff repair, right ankle repair in the remote past, heart catheterization in 2010, and the above Ronal patch duodenal ulcer repair. Also, hysterectomy in the remote past. HOME MEDICATIONS: - aspirin 81 mg every day - donepezil 10 mg every evening - Synthroid 50 mcg every day - lisinopril 5 mg every day - metformin 1000 mg every day and 500 mg every evening - multivitamins one every day - Protonix 40 mg twice a day - sertraline 100 mg every day along with vitamin D 400 units by mouth every day ALLERGIES: To BANANAS. HABITS: Has never been a smoker. Denies ethyl alcohol (EtOH) intake or illicit drugs. 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 ANIMALS AT HOME: They both live at [facility] without present animals. Used to have [employer]. FAMILY HISTORY: Daughter with Hodgkin disease. REVIEW OF SYSTEMS: Constitutional: See HPI. Eyes: Without diplopia. Without amaurosis fugax. Without prior jaundice. Nose: Without epistaxis. Mouth: Has her own teeth. Respiratory: See HPI. Cardiac: See HPI. Gastrointestinal (GI): Since her procedure, without nausea, vomiting, diarrhea, constipation, melena or hematochezia. Genitourinary (): Without hematuria or dysuria, or a history of renal stones. Endocrine: With diabetes. With hypothyroidism. Neurologic: Without paresthesias, paralysis or prior seizures. Psychiatric: Has Alzheimer's dementia. PHYSICAL EXAMINATION: A well-developed, frail 84-year-old white female, in no acute distress, sitting comfortably. Vital Signs: Temperature is 97.8, heart rate of 92 and irregular rate with multiple PVCs, respiratory rate of 16 without the use of accessory muscles, who is 92% saturated on room air and whose blood pressure is 131/59. Eyes: Pupils equal, round, and reactive to light. Extraocular motor intact. Sclerae nonicteric. Head: Is normocephalic. Nose: Without deformity. Mouth: Shows her mucous membranes to be pink and moist. Lips and commissures without lesions. There is no thrush. Teeth are in good repair. Neck: Is supple. There is no jugular venous distention. No subcutaneous emphysema. Trachea is midline. She has 2+ carotid upstrokes. No bruits. There is no lymphadenopathy or thyromegaly. Lungs: Show markedly decreased breath sounds in the right lower hemithorax with a dull percussion note in the right lower hemithorax. There is partial E-to-A egophony in the right lower hemithorax. Left side shows inspiratory rales from mid inspiration to end expiration. Percussion note is full to the diaphragm on the left. Cardiac: Exam is without murmurs, clicks, gallops, or rubs. I cannot feel her point of maximal impulse (PMI). S1 and S2 are normal. She has an irregular rate and rhythm. Abdomen: Is soft, nontender. Bowel sounds are positive. There is no hepatomegaly. No costovertebral angle (CVA) tenderness. Extremities: Show 2+ pretibial edema but no calf tenderness. The notes that her edema is better today than it was yesterday. Skin: Is warm, dry, and perfused without cyanosis or mottling, including that of the nail beds and knees. Neurologic: Shows II-XII intact along with gross motor and gross sensation intact. Gait is not tested. Psychiatric: Shows her to be awake and alert and conversational. INVESTIGATIONS: Her white count on admission yesterday was 13.2 and 10.9 today. Platelet count is 339 and stable, and hemoglobin and hematocrit are 10.4 and 33.7. Differential shows 87% neutrophils, 4% lymphocytes, 6% monocytes. There were no immature forms, no toxic granulations. Her electrolytes today and yesterday are normal with a BUN and creatinine of 26 and 1.32 today and 30 and 1.3 yesterday. Glucose is 173. Calcium is 8.7 with a corresponding albumin of 2.5. AST and ALT are normal. As noted in the HPI, he D-dimer was greater than 4000. Brain natriuretic peptide is 30,593. Her chest x-ray shows a right lower hemithorax opacity on the portable film yesterday along with a haze in the left lower hemithorax. Today's film shows clearing of the left lower hemithorax with some improvement of the right hemithorax. She still looks to have a pleural effusion. Her CT scan done yesterday with angiographic protocol confirms the moderate left pleural effusion with lung compression underneath. There is no pericardial effusion. There is fibrosis in the left lower hemithorax in the left lower lobe. I do not see any masses per se. There is loculation on the left side of pleural fluid posterolaterally. Her adrenals have a normal configuration and I see no liver lesions. There is no paratracheal lymphadenopathy, although there is some precarinal lymphadenopathy. IMPRESSION: 1. Right pleural effusion, moderate. 2. Left pleural effusion, small. 3. Most likely probable congestive heart failure (CHF) with a brain natriuretic peptide of greater 30,000. 4. Diabetes. 5. Hypothyroidism. 6. Hypertension. 7. Coronary artery disease, status post myocardial infarction in the remote past. 8. Alzheimer's dementia. PLAN/DISCUSSION: At this point in time, the patient is not in any acute distress. She is well saturated and is not showing any difficulty breathing. My recommendation to the medical service is to aggressively treat her CHF. Her BUN and creatinine is slightly up secondary to her heart failure. I will ask cardiology to consult her to follow her long-term for her heart failure. I would rather not drain at this point in time, but rather have her heart failure treated medically. If she does get into respiratory distress, then we can certainly consider draining her most likely with a pigtail catheter.
[2020-01-26 16:00] VITALS: BP 116/63
--- NOTE | 2020-01-26 18:10 | ECHO ---
DATE OF PROCEDURE: 01/26/2020 REFERRING PHYSICIAN: Dr. Brant Marquez INDICATION: Dyspnea. HEIGHT: 64 inches. WEIGHT: 59.1 kg 2D MEASUREMENTS: Ventricular septum: 0.95 cm Posterior wall: 1.05 cm Left ventricle diastole: 4.1 cm Left atrium: 3.4 cm Aortic root: 2.8 cm Aortic annulus: 1.7 cm Inferior vena cava: 1.9 cm with marked reduction of respiratory variation. DOPPLER MEASUREMENTS: No aortic stenosis. Mild aortic regurgitation. Aortic valve velocity 113 cm/s LVOT velocity: 86.5 cm/s LVOT VTI: 11.6 cm Moderate mitral regurgitation. No mitral stenosis. Mitral E velocity: 120 cm/s Mitral A velocity: 111 cm/s Mitral deceleration time: 129 ms Mild tricuspid regurgitation. Estimated right ventricle systolic pressure: At least 46 mmHg assuming a right atrial pressure of at least 20 mmHg. Trace pulmonic regurgitation. Pulmonary acceleration time: 85 ms MITRAL ANNULAR TISSUE DOPPLER: E prime septal: 4.5 cm/s E prime lateral: 5.3 cm/s DESCRIPTION: Rhythm was sinus. Image quality was adequate. This was a 2D, M-mode, color flow Doppler and pulse wave Doppler examination and included mitral annular tissue Doppler. CONCLUSIONS: 1. Normal left ventricular (LV) dimension at end-diastole. Normal LV wall thickness. Moderately severe global LV hypokinesis with low cardiac output state and severe reduction in overall LV systolic function. LVEF 25% by visual estimate. Reduced LV contractility. Grade 2 LV diastolic dysfunction (pseudo-normal LV filling pattern). 2. Moderate mitral annular calcification. Moderate mitral regurgitation. No mitral stenosis. 3. Normal right ventricle size with severe hypokinesis of the right ventricle and severe reduction in right ventricle (RV) systolic function. Suggestive of at least moderate elevation of estimated right ventricle systolic pressure (at least 46 mmHg, assuming CVP of at least 20 mmHg). 4. Inferior vena cava plethora with marked reduction of respiratory variation consistent with elevated CVP of at least 20 mmHg. 5. Bilateral pleural effusions. 6. Very small pericardial effusion. No diastolic chamber collapse. 7. Mild aortic valve sclerosis of a 3-cusp aortic valve. Mild aortic regurgitation.
--- NOTE | 2020-01-26 18:14 | CR ---
DATE OF CONSULTATION: 01/26/[address] Broderick Kurtz for congestive heart failure (CHF). HISTORY OF PRESENT ILLNESS: Patient is an 84-year-old female who presented to the emergency department with her with chief complaint of generalized weakness, dyspnea on exertion, and increased swelling in her lower extremities as well as difficulty breathing. On admission to the emergency department, she was found to have bilateral pleural effusions, right greater than left, lower extremity edema, and a brain natriuretic peptide (BNP) of around 30,000. At that time, Dr. Kurtz was consulted for possible drainage of her pleural effusions; however, he feels as though it may be more likely related to congestive heart failure and so requested cardiology services to look in on the patient. She is a former patient of ours but has not been seen or evaluated by us since 2010. Interview is limited, as patient has dementia but is able to answer questions about how she is feeling today. Since being evaluated in 2010, her reports that she has had no cardiac procedures, hospitalizations, or changes in cardiac medications. PAST MEDICAL HISTORY: Significant for: 1. Coronary artery disease. 2. History of myocardial infarction (SC) in 2003 with previous cardiac catheterization in 2002 and then October 2009 without any history of percutaneous coronary intervention (PCI). 3. Hypothyroidism. 4. Rlm-bkabfbl-weujmpjgl diabetes. 5. Gastroesophageal reflux disease. 6. History of temporal arteritis. 7. History of polymyalgia rheumatica. 8. Gastroesophageal reflux disease (GERD). 9. Mild cognitive impairment per neurology December 2017. 10. Moderate to severe cerebral atrophy based on CT head 2015. 11. Hypertension. PAST SURGICAL HISTORY: Significant for: 1. Heart catheterization in March 2011. 2. Tonsillectomy. 3. Hysterectomy. 4. Right hip arthroplasty. 5. Cataract repair bilaterally. 6. Right carpal tunnel release. 7. Left rotator cuff repair. 8. Right ankle surgery. 9. Bunionectomy. 10. Basal cell carcinoma excision. FAMILY HISTORY: Negative for family history of premature cardiac disease under the age of 65. Negative for heart attacks. Daughter with Hodgkin disease. Brother with osteoarthritis. Mother with Alzheimer's disease. SOCIAL HISTORY: Never smoker. Denies any alcohol use. No marijuana, heroin, cocaine, PCP. REVIEW OF SYSTEMS: Patient denies any fever, chills. Does not keep track of her weight at home. Denies headache, dizziness, vision changes, hearing changes, nose, mouth, or throat changes. CARDIOVASCULAR: Admits to swelling in her lower extremities. Denies chest pain, pressure, tightness. Admits to dyspnea with exertion. RESPIRATORY: Denies cough, wheezing. Admits to shortness of breath with exertion. GASTROINTESTINAL: Denies nausea, vomiting, constipation, diarrhea, abdominal pain, blood in stool, black, tarry stool. SKIN: Denies any skin changes, rashes, or lesions. NEUROLOGIC: Denies numbness, tingling in arms or legs. reports issues with memory. OBJECTIVE: VITAL SIGNS: Temperature 96.8, pulse 90, respiratory rate 16, blood pressure 110/61, saturating 97% on room air. PHYSICAL EXAMINATION: GENERAL: Patient is a pleasant-appearing elderly female in no acute distress, resting comfortably in bed. HEENT: Head is normocephalic, atraumatic. Extraocular muscles intact (EOMI). No signs of scleral icterus. Nares patent. Mucous membranes moist. NECK: No thyromegaly. Jugular venous distention 5-6 cm above the sternal angle HEART: Regular rate and rhythm, normal S1, S2. S3 gallop appreciated on exam. S4 present as well. No rubs appreciated on examination. RESPIRATORY: Symmetric chest expansion. Breath sounds are diminished bilaterally. Fine crackles appreciated in bilateral lung bases. No wheezes or rhonchi appreciated. ABDOMEN: Soft, nontender, nondistended. No organomegaly. Bowel sounds normal. SKIN: No skin changes appreciated on exam. EXTREMITIES: Pitting edema 2+ to the level of the sacrum. NEUROLOGIC: Patient is alert, oriented to person, place but not time. Cranial nerves III-XII grossly intact. PSYCHIATRIC: Patient with clear memory impairment. Mood and affect otherwise normal. LABORATORY STUDIES: White blood cell count 7.9, hemoglobin 9.2, hematocrit 29.4, platelet count 339. Sodium 139, potassium 4.2, chloride 106, bicarbonate 23, BUN 26, creatinine 1.32, glucose 173, calcium 8.7, magnesium 1.7. Total bilirubin 0.5, AST 32, ALT 30. ProBNP of 30,593. TSH 3.86. Procalcitonin pending. Microbiology: Blood cultures pending. IMAGING: On 01/25/2020, CT angiogram shows no pulmonary embolism. Moderate-size right and small left pleural effusion with compressive atelectasis at the right lung base. Patchy ground-glass opacification in bilateral upper lobes. Chest x-ray showing persistent bibasilar opacities, right greater than left. ASSESSMENT AND PLAN: 1. Acute congestive heart failure, unspecified. Patient clinically is having an acute heart failure exacerbation. Her last echo was done in 2004 per our records, but we do not have access to the echo results themselves. An order has been placed for a stat echo which is showing preliminary evidence of HFrEF EF 25-30%. Will await Dr. Arellano's read to determine whether we will initiate Beta heidi therapy. Currently she has only received a couple doses of 40 mg intravenous (IV) Lasix with no net-negative output. We will start her on 40 mg IV every 4 hours with net-negative goal of 1.2 liters per day and holding parameters in place. We will also start her on metoprolol succinate 25 mg daily, as she may have some underlying degree of systolic heart failure. As she is in an exacerbation and has some impairment to her kidney function, we will hold her lisinopril. Currently her bicarbonate is fairly low, and she has clear signs of volume overload, so there is room to move on her Lasix. May plan to start Entresto, depending on the results of the echocardiogram. Agree with hospitalist plan for 1.5 liter fluid restriction, and we will continue to monitor intake and output. 2. Bilateral pleural effusions, right greater than left. I suspect this is likely the result of congestive heart failure (CHF) and think that our aggressive diuresis should help to reduce her pleural effusions. Failing this, we will speak with Dr. Kurtz about possible pleurocentesis in the future; however, for the time being I do not think this is necessary. Less likely an infectious process, as patient is not showing any signs of infection, including fever, chills, or productive cough. 3. Elevated creatinine. Patient appears to be close to her baseline, as she seems to have stage IIIA chronic kidney disease (CKD) with a baseline creatinine of 1.1. I suspect the elevated creatinine is likely due to her fluid overload. We will continue to monitor this with daily labs and monitor her intake and output as well. 4. Holding her only blood pressure medication for the time being, as it will impair kidney function, but her blood pressure is presently well controlled. May consider adding low dose Entresto with kidney function in mind. Starting her on metoprolol. May add on a second agent after her acute exacerbation is resolved. 5. Hypothyroidism. Thyroid-stimulating hormone (TSH) is mildly elevated. Okay to check free T4; however, I do not think it is likely influencing what is happening with her cardiovascular status. 6. Diabetes mellitus. Continue with sliding-scale insulin. Based on preliminary echo results, patient should be started on SGLT2 inhibitor outpatient. Thank you for this consult. Feel free to reach out with any questions or concerns. PEÑA
--- NOTE | 2020-01-26 19:58 | IPNPDOC ---
Date Seen The patient was seen on 01/26/20. Progress Note SUBJECTIVE: No complaints by patient. U/O not well known due to incontinence, placing corley catheter. At this time, Dr. Kurtz will hold off on tapping pleural effusions. Denies chest pain, increased SOB, n/v/d. OBJECTIVE: VITAL SIGNS: Please see below PHYSICAL EXAMINATION: CONSTITUTIONAL: No acute distress, resting comfortably, AAO x 2, pleasantly confused EYES: PERRLA, EOM intact HENT, MOUTH: Normocephalic, atraumatic, moist mucous membranes NECK: SUPPLE, no JVD, no lymphadenopathy, no carotid bruit CV: Regular rate and rhythm, S1S2 normal, no murmurs/rubs/gallops RESPIRATORY: Decreased breath sounds bilaterally in posterior bases, crackles. GI: BS positive in 4 quadrants, soft, nontender, nondistended, no rebound or guarding, no organomegaly : Deferred MUSCULOSKELETAL: Normal ROM. No cyanosis, clubbing, swelling, joint deformity, +1 extremity edema INTEGUMENTARY: Intact, no rashes, no lesions, no erythema NEUROLOGIC: Cranial Nerves II-XII are intact, no focal deficits CURRENT MEDICATIONS: Please see below LABORATORY DATA: Please see below IMAGING: CXR: There are bibasilar opacities status quo. There is no change in the cardiomediastinal silhouette. There are no new abnormal opacities. There is no change in the osseous structures. Echo: 1. Normal left ventricular (LV) dimension at end-diastole. Normal LV wall thickness. Moderately severe global LV hypokinesis with low cardiac output state and severe reduction in overall LV systolic function. LVEF 25% by visual estimate. Reduced LV contractility. Grade 2 LV diastolic dysfunction (pseudo-normal LV filling pattern). 2. Moderate mitral annular calcification. Moderate mitral regurgitation. No mitral stenosis. 3. Normal right ventricle size with severe hypokinesis of the right ventricle and severe reduction in right ventricle (RV) systolic function. Suggestive of at least moderate elevation of estimated right ventricle systolic pressure (at least 46 mmHg, assuming CVP of at least 20 mmHg). 4. Inferior vena cava plethora with marked reduction of respiratory variation consistent with elevated CVP of at least 20 mmHg 5. Bilateral pleural effusions. 6. Very small pericardial effusion. No diastolic chamber collapse. 7. Mild aortic valve sclerosis of a 3-cusp aortic valve. Mild aortic regurgitation. ASSESSMENT: 84 y/o F with PMH of DM type II, Alzheimer's dementia, CAD who was admitted for acute systolic CHF, bilateral pleural effusions. PLAN: 1. Acute systolic CHF exacerbation -Unknown output, placing corley catheter -Echo above, EF 25% -Cardiology consulted and saw patient today -C/w BB, ACEi, lasix Q4 hrs -Monitor I&O's closely, fluid restriction, daily wt 2. Bilateral pleural effusions -Dr. Kurtz (thoracic surgery) consulted and does not feel at this time patient is in need of pleuracentesis -C/w diuresis and management of systolic CHF above 3. CRISTA (acute kidney injury) likely prerenal secondary to CHF exacerbation due to intravascular depletion -Cr slightly worsened; however, volume overloaded -Monitor cr closely while on ACEi, lasix Q4hrs -Daily labs. 4. Hypothyroidism, chronic -levothyroxine 5. HTN (hypertension), chronic -Stable -Monitor while on antihypertensives and aggressive diuresis regimen 6. DM type II -C/w ISS 7. GERD -PPI 8. DVT px - Heparin DISPOSITION: Currently inpatient status. To discuss with team after weekend about discharge plan. VS, I&O, 24H, Fishbone Vital Signs/I&O Vital Signs Date Time Temp Pulse Resp B/P (MAP) Pulse Ox O2 Delivery O2 Flow Rate FiO2 01/26/20 16:00 97.5 88 16 116/63 (80) 94 Room Air 01/26/20 04:00 2.0 I&O- Last 24 Hours up to 6 AM 01/26/20 05:59 Intake Total 420 ml Output Total 0 ml Balance 420 ml Laboratory Data 24H LABS Laboratory Tests 2 01/25/20 20:03: Coronavirus (COVID-19)(PCR) NEGATIVE 01/25/20 22:17: Bedside Glucose (Misc Panel) 277H 01/26/20 05:26: Nucleated Red Blood Cells % (auto) 0.0, Anion Gap 10, Glomerular Filtration Rate 40.6, Calcium Level 8.7L, Magnesium Level 1.7L, Total Bilirubin 0.5, Aspartate Amino Transf (AST/SGOT) 32, Alanine Aminotransferase (ALT/SGPT) 30, Alkaline Phosphatase 92, Total Protein 6.0L, Albumin 2.5L, Albumin/Globulin Ratio 0.7L 01/26/20 11:54: Bedside Glucose (Misc Panel) 172H 01/26/20 17:10: Bedside Glucose (Misc Panel) 88 CBC/BMP Laboratory Tests 01/26/20 05:26 Microbiology Microbiology 01/25/20 Blood Culture - Preliminary, Resulted No growth after 24 hours . All specim... 01/25/20 Blood Culture - Preliminary, Resulted No growth after 24 hours . All specim... Current Medications Current Medications Medications (Trade) Dose Ordered Sig/Nat Route PRN Reason Start Time Stop Time Status Last Admin Dose Admin Acetaminophen (Tylenol Tab) 650 mg Q4H PRN PO PAIN OR FEVER 01/25/20 18:15 Aspirin (Ecotrin) 81 mg QHS PO 01/25/20 21:00 01/25/20 22:22 Dextrose (Dextrose 50%) 25 ml ASDIRECTED PRN IV SEE LABEL COMMENTS 01/25/20 18:45 Furosemide (LASIX injection) 40 mg Q12H IV 01/26/20 00:00 01/26/20 13:51 DC 01/26/20 10:08 Furosemide (LASIX injection) 40 mg Q4H IV 01/26/20 16:00 01/26/20 16:21 Glucagon (Glucagon) 1 mg ASDIRECTED PRN SC SEE LABEL COMMENTS 01/25/20 18:45 Glucose (Glucose) 16 GM ASDIRECTED PRN PO SEE LABEL COMMENTS 01/25/20 18:45 Heparin Sodium (Porcine) (Heparin) 5,000 units Q12H SC 01/25/20 21:00 01/26/20 10:10 Home Med (Med Rec Complete!) ASDIRECTED XX 01/25/20 18:45 01/25/20 18:48 DC Insulin Human Lispro (HumaLOG INSULIN) SEE PROTOCOL TABLE AC SC 01/26/20 07:30 01/26/20 11:59 Insulin Human Lispro (HumaLOG INSULIN) SEE PROTOCOL TABLE QHS SC 01/25/20 21:00 01/25/20 22:22 Levothyroxine Sodium (Synthroid) 50 mcg DAILY@0600 PO 01/26/20 06:00 01/26/20 05:49 Lisinopril (Prinivil) 5 mg DAILY PO 01/26/20 09:00 01/26/20 13:51 DC 01/26/20 10:09 Metoprolol Succinate (TopROL XL) 25 mg DAILY PO 01/26/20 14:00 01/26/20 14:33 Pantoprazole Sodium (Protonix) 40 mg BID PO 01/25/20 21:00 01/26/20 10:08 Sacubitril/ Valsartan (Entresto 24-26 Mg) 1 tab BID PO 01/27/20 21:00 Sertraline HCl (Zoloft) 100 mg DAILY@1200 PO 01/26/20 12:00 01/26/20 12:00 Allergies Coded Allergies: banana (Unverified Allergy, Unknown, 01/04/20) Roxie Greene MD Jan 26, 2020 19:58
[2020-01-26 20:00] VITALS: BP 123/66
[2020-01-26] MEDS: ASPIRIN 81 MG ENTERIC TAB PO SCH (20:51)
[2020-01-27] VITALS: BP 112/60
[2020-01-27] MEDS: FUROSEMIDE 40MG/4ML VIAL (J1940) IV SCH ×6 (00:36→20:00)
[2020-01-27] MEDS ORDERED: MAG SULF 1GM/100ML (MAG RUN) 1 GM in IV 1 EA IV ONE (02:15)
[2020-01-27 04:00] VITALS: BP 102/55
[2020-01-27 05:34] LABS: HEMATOCRIT 29.3 % (36.0-47.0); HEMOGLOBIN 9.3 g/dl (12.0-15.5); MEAN CORPUSCULAR HEMOGLOBIN 31.1 pg (27.0-33.0); MEAN CORPUSCULAR HGB CONC 31.7 g/dl (32.0-36.5); PLATELET COUNT, AUTOMATED 344 10^3/uL (150-450); RED BLOOD COUNT 2.99 10^6/uL (4.00-5.40)
[2020-01-27 05:37] LABS: ALBUMIN 2.4 GM/DL (3.2-5.2); BILIRUBIN,TOTAL 0.4 MG/DL (0.2-1.0); CALCIUM LEVEL 8.8 MG/DL (8.8-10.2); CREATININE FOR GFR 1.34 MG/DL (0.55-1.30); GLOMERULAR FILTRATION RATE 39.9 (>32); POTASSIUM SERUM 3.3 MEQ/L (3.5-5.1); TOTAL PROTEIN 6.6 GM/DL (6.4-8.2)
[2020-01-27] MEDS: LEVOTHYROXINE 50MCG TABLET (0.05MG) PO SCH (06:01)
[2020-01-27 08:00] VITALS: BP 124/67
[2020-01-27] MEDS: HEPARIN SOD (PORCINE) 5000UNITS/ML VIAL (J1644 PER 1000UNITS) SC SCH (08:30)
[2020-01-27] MEDS: HumaLOG INSULIN (NovoLOG) PER UNIT SC SCH ×4 (08:30→21:00)
[2020-01-27] MEDS: PANTOPRAZOLE 40MG TAB (PROTONIX) PO SCH ×2 (08:31→21:51)
[2020-01-27] MEDS: METOPROLOL SUCC *XL* 25MG TAB (TopROL *XL*) PO SCH (08:31)
[2020-01-27] MEDS: POTASSIUM CHLORIDE 10 MEQ SR TABLET PO SCH (09:46)
--- NOTE | 2020-01-27 10:41 | REP ---
REASON: Followup pleural effusion. COMPARISON: Multiple, the latest yesterday. Cardiomediastinal silhouette is unchanged. Bibasilar opacities are unchanged. The osseous structures are unchanged. IMPRESSION: No change. Persistent bibasilar opacities and right pleural effusion. Electronically Signed by Oral Bradshaw DO 01/27/2020 10:43 A
[2020-01-27] MEDS: SERTRALINE 100 MG TAB PO SCH (11:43)
[2020-01-27 12:00] VITALS: BP 108/57
--- NOTE | 2020-01-27 12:52 | IPN ---
DATE: 01/27/2020 This is now the second full hospital day for Ms. Langston. She is responding well to her heart failure therapy. Her edema is much better and she is breathing much better. Her vital signs show a T-max of 97.5, with a heart rate that ranges between 101 and 88 with multiple PACs and PVCs. Respiratory rate is 16 to 20 without the use of accessory muscles who is 96% to 98% saturated on room air and whose blood pressure is ranging between 102/55 to 124/67. Her intake and output the past 24 hours has been recorded as 890 in and 850 out for a negativity of 160 mL. She has put out 1600 mL from the [facility] since midnight however. Her weight today is 58.7 kg compared to 59.1 kg yesterday. On physical examination, her lungs sound much better today. She still has inspiratory crackles on the left and right sides, but they are much less than they were yesterday. Her percussion note is also much more resonant at the right base than it was yesterday. Cardiac Exam: Without murmurs, clicks, gallops, or rubs. I cannot feel her PMI. S1, S2 are normal. She has an irregular rate and rhythm. Abdomen: Soft. Nontender. Bowel sounds are positive. There is no hepatomegaly. No costovertebral angle (CVA) tenderness. Extremities: Show maybe trace to 1+ pretibial edema, improved over yesterday. There is no calf tenderness. No differential swelling of the upper extremities. Skin: Warm, dry and perfused, but there is some mottling around the knees. Neck: Supple. There is no jugular venous distention. No subcutaneous emphysema. Trachea is midline. Mouth: Shows her mucous membranes to be pink and moist. Lips and commissures are without lesions. There is no thrush. Eyes: Show her pupils to be equal and reactive. Extraocular motions are intact. Sclerae nonicteric. Neurologic: Shows II-XII intact along with gross motor and gross sensation intact. Gait is not tested. Psychiatric shows her to be awake, alert, conversational and able to answer questions. Her white count today is 10.0, unchanged from yesterday, with a hemoglobin and hematocrit of 9.3 and 29.3, also unchanged from yesterday, and a platelet count of 344. Her chemistries today show potassium of 3.3, down from 4.2 yesterday. BUN and creatinine are 25 and 1.34, essentially unchanged from yesterday, with a glucose of 135, a calcium of 8.8 and a corresponding albumin of 2.4. AST and ALT are normal. Her chest x-ray today is essentially unchanged from yesterday. There is still meniscus on the lateral film on the right side. Her echocardiogram done yesterday shows a left ventricular ejection fraction of 25%. She has hypokinesis of the right ventricle with an estimated right ventricular pressure of 46 mmHg. There is marked reduction in the respiratory variation of her vena cava consistent with an elevated central venous pressure (CVP). IMPRESSION: 1. Right pleural effusion, moderate. 2. Left pleural effusion, small, both secondary to #3. 3. Congestive heart failure with left ventricular ejection fraction of 25%. 4. Right ventricular dysfunction with elevated CVP secondary to left heart failure. 5. Diabetes. 6. Hypertension. 7. Hypothyroidism. 8. Coronary artery disease status post myocardial infarction in the remote past. 9. Alzheimer dementia. 10. Mild renal insufficiency secondary to cardiac dysfunction. PLAN AND DISCUSSION: Her medications now include Lasix being given IV and metoprolol and ENTRESTO has been started as an TYRELL and nephrolysin inhibitor. Treatment of her underlying left heart failure may improve her right heart function and the pleural effusion. The pleural effusion will take a little bit longer to go away over a period of 2-3 weeks. I will follow her one more day in the hospital and then withdraw from the case to leave her with medical therapy.
[2020-01-27 16:00] VITALS: BP 106/68
--- NOTE | 2020-01-27 18:02 | IPNPDOC ---
Date Seen The patient was seen on 01/27/20. Progress Note SUBJECTIVE: Patient awake, pleasantly confused but oriented x 2. -600 since 12 AM. Denies chest pain, increased SOB, n/v/d. OBJECTIVE: VITAL SIGNS: Please see below PHYSICAL EXAMINATION: CONSTITUTIONAL: No acute distress, resting comfortably, AAO x 2, pleasantly confused EYES: PERRLA, EOM intact HENT, MOUTH: Normocephalic, atraumatic, moist mucous membranes NECK: SUPPLE, no JVD, no lymphadenopathy, no carotid bruit CV: Regular rate and rhythm, S1S2 normal, no murmurs/rubs/gallops RESPIRATORY: Decreased breath sounds bilaterally in posterior bases, crackles. GI: BS positive in 4 quadrants, soft, nontender, nondistended, no rebound or guarding, no organomegaly : Deferred MUSCULOSKELETAL: Normal ROM. No cyanosis, clubbing, swelling, joint deformity, +1 extremity edema INTEGUMENTARY: Intact, no rashes, no lesions, no erythema NEUROLOGIC: Cranial Nerves II-XII are intact, no focal deficits CURRENT MEDICATIONS: Please see below LABORATORY DATA: Please see below IMAGING: CXR: No change. Persistent bibasilar opacities and right pleural effusion. Echo: 1. Normal left ventricular (LV) dimension at end-diastole. Normal LV wall thickness. Moderately severe global LV hypokinesis with low cardiac output state and severe reduction in overall LV systolic function. LVEF 25% by visual estimate. Reduced LV contractility. Grade 2 LV diastolic dysfunction (pseudo-normal LV filling pattern). 2. Moderate mitral annular calcification. Moderate mitral regurgitation. No mitral stenosis. 3. Normal right ventricle size with severe hypokinesis of the right ventricle and severe reduction in right ventricle (RV) systolic function. Suggestive of at least moderate elevation of estimated right ventricle systolic pressure (at least 46 mmHg, assuming CVP of at least 20 mmHg). 4. Inferior vena cava plethora with marked reduction of respiratory variation consistent with elevated CVP of at least 20 mmHg 5. Bilateral pleural effusions. 6. Very small pericardial effusion. No diastolic chamber collapse. 7. Mild aortic valve sclerosis of a 3-cusp aortic valve. Mild aortic regurgitation. ASSESSMENT: 84 y/o F with PMH of DM type II, Alzheimer's dementia, CAD who was admitted for acute systolic CHF, bilateral pleural effusions. PLAN: 1. Acute systolic CHF exacerbation --600 since midnight, corley now in place -Echo above, EF 25% -C/w BB, Entresto, lasix Q4 hrs -Monitor I&O's closely, fluid restriction, daily wt -Cardiology following 2. Bilateral pleural effusions -Dr. Kurtz (thoracic surgery) consulted and does not feel at this time patient is in need of pleuracentesis -C/w diuresis and management of systolic CHF above 3. CRISTA (acute kidney injury) likely prerenal secondary to CHF exacerbation due to intravascular depletion -Cr slightly improved, remains volume overloaded -Monitor cr closely while on ACEi, lasix Q4hrs -Daily labs. 4. Hypokalemia likely 2/2 to diuresis -40 mEq supplemented -f/u AM labs 5. Hypothyroidism, chronic -levothyroxine 6. HTN (hypertension), chronic -Stable -Monitor while on antihypertensives and aggressive diuresis regimen 7. DM type II -C/w ISS 8. GERD -PPI 9. DVT px Eliquis DISPOSITION: Currently inpatient status. To discuss with team after weekend about discharge plan. [facility]&O Vital Signs Date Time Temp Pulse Resp B/P (MAP) Pulse Ox O2 Delivery O2 Flow Rate FiO2 01/27/20 16:00 96.7 86 16 106/68 (81) 98 Room Air 01/26/20 04:00 2.0 I&O- Last 24 Hours up to 6 AM 01/27/20 06:00 Intake Total 490 ml Output Total 1750 ml Balance -1260 ml Laboratory Data 24H LABS Laboratory Tests 2 01/26/20 20:18: Bedside Glucose (Misc Panel) 161H 01/27/20 04:57: Nucleated Red Blood Cells % (auto) 0.0, Anion Gap 7L, Glomerular Filtration Rate 39.9, Calcium Level 8.8, Total Bilirubin 0.4, Aspartate Amino Transf (AST/SGOT) 26, Alanine Aminotransferase (ALT/SGPT) 28, Alkaline Phosphatase 87, Total Protein 6.6, Albumin 2.4L, Albumin/Globulin Ratio 0.6L 01/27/20 11:07: Bedside Glucose (Misc Panel) 166H 01/27/20 17:21: Bedside Glucose (Misc Panel) 148H CBC/BMP Laboratory Tests 01/27/20 04:57 Microbiology Microbiology 01/25/20 Blood Culture - Preliminary, Resulted No Growth after 48 hours. All Specime... 01/25/20 Blood Culture - Preliminary, Resulted No Growth after 48 hours. All Specime... Current Medications Current Medications Medications (Trade) Dose Ordered Sig/Nat Route PRN Reason Start Time Stop Time Status Last Admin Dose Admin Acetaminophen (Tylenol Tab) 650 mg Q4H PRN PO PAIN OR FEVER 01/25/20 18:15 Apixaban (Eliquis) 2.5 mg BID PO 01/27/20 21:00 Aspirin (Ecotrin) 81 mg QHS PO 01/25/20 21:00 01/27/20 17:24 DC 01/26/20 20:51 Dextrose (Dextrose 50%) 25 ml ASDIRECTED PRN IV SEE LABEL COMMENTS 01/25/20 18:45 Furosemide (LASIX injection) 40 mg Q12H IV 01/26/20 00:00 01/26/20 13:51 DC 01/26/20 10:08 Furosemide (LASIX injection) 40 mg Q4H IV 01/26/20 16:00 01/27/20 08:30 Glucagon (Glucagon) 1 mg ASDIRECTED PRN SC SEE LABEL COMMENTS 01/25/20 18:45 Glucose (Glucose) 16 GM ASDIRECTED PRN PO SEE LABEL COMMENTS 01/25/20 18:45 Heparin Sodium (Porcine) (Heparin) 5,000 units Q12H SC 01/25/20 21:00 01/27/20 17:04 DC 01/27/20 08:30 Home Med (Med Rec Complete!) ASDIRECTED XX 01/25/20 18:45 01/25/20 18:48 DC Insulin Human Lispro (HumaLOG INSULIN) SEE PROTOCOL TABLE AC SC 01/26/20 07:30 01/27/20 08:30 Insulin Human Lispro (HumaLOG INSULIN) SEE PROTOCOL TABLE QHS SC 01/25/20 21:00 01/25/20 22:22 Levothyroxine Sodium (Synthroid) 50 mcg DAILY@0600 PO 01/26/20 06:00 01/27/20 06:01 Lisinopril (Prinivil) 5 mg DAILY PO 01/26/20 09:00 01/26/20 13:51 DC 01/26/20 10:09 Metoprolol Succinate (TopROL XL) 25 mg DAILY PO 01/26/20 14:00 01/27/20 08:31 Pantoprazole Sodium (Protonix) 40 mg BID PO 01/25/20 21:00 01/27/20 08:31 Potassium Chloride (Micro-K Extencaps) 40 meq DAILY PO 01/27/20 09:00 01/27/20 09:46 Sacubitril/ Valsartan (Entresto 24-26 Mg) 1 tab BID PO 01/27/20 21:00 Sertraline HCl (Zoloft) 100 mg DAILY@1200 PO 01/26/20 12:00 01/27/20 11:43 Allergies Coded Allergies: banana (Unverified Allergy, Unknown, 01/04/20) Roxie Greeen MD Jan 27, 2020 18:02
[2020-01-27 19:59] LABS: CALCIUM LEVEL 8.8 MG/DL (8.8-10.2); CREATININE FOR GFR 1.49 MG/DL (0.55-1.30); GLOMERULAR FILTRATION RATE 35.3 (>32); POTASSIUM SERUM 4.5 MEQ/L (3.5-5.1)
[2020-01-27 20:00] VITALS: BP 103/58
[2020-01-27] MEDS: ENTRESTO 24-26MG TABLET (SACUBITRIL/VALSARTAN) PO SCH (21:51)
[2020-01-27] MEDS: APIXABAN 2.5 MG TAB (ELIQUIS) PO SCH (21:51)
[2020-01-28] VITALS: BP 126/60
[2020-01-28] MEDS: FUROSEMIDE 40MG/4ML VIAL (J1940) IV SCH ×2 (00:10→04:26)
[2020-01-28 04:00] VITALS: BP 107/54
[2020-01-28] MEDS: LEVOTHYROXINE 50MCG TABLET (0.05MG) PO SCH (05:38)
[2020-01-28 08:00] VITALS: BP 107/60
[2020-01-28 08:09] LABS: HEMATOCRIT 33.8 % (36.0-47.0); HEMOGLOBIN 10.6 g/dl (12.0-15.5); MEAN CORPUSCULAR HEMOGLOBIN 30.5 pg (27.0-33.0); MEAN CORPUSCULAR HGB CONC 31.4 g/dl (32.0-36.5); MEAN CORPUSCULAR VOLUME 97.1 fl (80.0-96.0); PLATELET COUNT, AUTOMATED 383 10^3/uL (150-450); RED BLOOD COUNT 3.48 10^6/uL (4.00-5.40); WHITE BLOOD COUNT 9.9 10^3/uL (4.0-10.0)
[2020-01-28] MEDS: HumaLOG INSULIN (NovoLOG) PER UNIT SC SCH ×4 (08:12→20:51)
[2020-01-28] MEDS: APIXABAN 2.5 MG TAB (ELIQUIS) PO SCH ×2 (08:12→21:00)
[2020-01-28] MEDS: POTASSIUM CHLORIDE 10 MEQ SR TABLET PO SCH (08:12)
[2020-01-28] MEDS: PANTOPRAZOLE 40MG TAB (PROTONIX) PO SCH ×2 (08:13→20:52)
[2020-01-28] MEDS: ENTRESTO 24-26MG TABLET (SACUBITRIL/VALSARTAN) PO SCH ×2 (08:13→20:52)
[2020-01-28] MEDS: METOPROLOL SUCC *XL* 25MG TAB (TopROL *XL*) PO SCH (08:13)
[2020-01-28 08:29] LABS: ALBUMIN 2.4 GM/DL (3.2-5.2); BILIRUBIN,TOTAL 0.5 MG/DL (0.2-1.0); CALCIUM LEVEL 8.6 MG/DL (8.8-10.2); CREATININE FOR GFR 1.43 MG/DL (0.55-1.30); TOTAL PROTEIN 6.2 GM/DL (6.4-8.2)
[2020-01-28] MEDS ORDERED: SLF 3 ML SYR IV PRN (10:15)
--- NOTE | 2020-01-28 10:24 | IPN ---
DATE: 01/27/2020 Mrs. Jaja Langston was initially admitted on 01/25/2020 with progressive shortness of breath, increased pedal edema, orthopnea, as well as generalized weakness. She was found in the emergency room (ER) to have an elevated serum proBNP, and chest x-ray and chest CT revealed findings consistent with heart failure and bilateral pleural effusion. She was admitted for further management and monitoring. She was seen by thoracic surgeon for her pleural effusion, and they thought it was related to her congestive failure, and she is being monitored. She had an echocardiogram done on 01/26/2020, and it revealed a severely depressed global left ventricular systolic function estimated at 25% with moderate mitral regurgitation, grade 2 left ventricular diastolic dysfunction, right ventricular systolic dysfunction, moderate pulmonary hypertension, and inferior vena cava (IVC) plethora . There was only a very small pericardial effusion. Mild aortic regurgitation detected. The patient was started on intravenous (IV) Lasix, and her angiotensin-converting enzyme (TYRELL) inhibitor was discontinued. This morning she was started on Entresto. I was asked by Dr. Bailey to follow on her underlying heart condition. When I saw Mr. Yesi Langston this morning, she was in her room, sitting up in a chair and having lunch. She denies any complaint of chest pain, shortness of breath at rest, palpitations, and her pedal edema has improved significantly. There is no focal manifestation. There is no report of fever. There is no report of bleeding. She was started on the Entresto this morning, and so far she is tolerating it well. Blood pressure when I saw her was 108/57. So far today, she has a negative fluid balance of greater than 1 liter. She also was treated for hypomagnesemia. Her telemetry strips were reviewed and revealed last night paroxysmal atrial fibrillation. She is currently in normal sinus rhythm when I saw her. Premature ventricular contractions (PVCs) is also noted, <<4:21>> . PHYSICAL EXAMINATION: The patient is alert and awake in no acute distress at rest and very pleasant. Her most recent vital signs at about 4 p.m. revealed a blood pressure of 106/68 with pulse of 86, respirations 16, and her maximum temperature is 97.5 degrees Fahrenheit with an oxygen saturation of 98% on room air. She has a negative fluid balance of 1.3 liters. Examination of the head: Atraumatic. Neck is supple with extended jugular. The lungs revealed decreased breath sounds at the bases but no wheezing. No crackles heard at the bases. The heart examination revealed regular heart sounds without gallops. The point of maximal impulse (PMI) is displaced inferiorly and laterally. There is no rub. There is a systolic murmur, grade 1-2 over 6 at the lower left sternal border at the apex with some radiation to the axilla. Abdomen is soft and nontender. Extremities reveal trace bilateral lower leg edema. Neurological examination grossly was negative for focal deficit. LABORATORY DATA: CBC done today revealed a WBC of 10.0, hemoglobin 9.3, hematocrit 29.3, and platelets 344,000. BMP done this morning, 01/27/2020, revealed a sodium of 137, potassium 3.3, chloride 100, CO2 of 30, BUN 25, creatinine 1.34, GFR 39.9, fasting glucose 135, and calcium 8.3. Liver enzymes revealed a total bilirubin of 0.4, AST 26, ALT 28, alkaline phosphatase 87, total protein 6.6, albumin 2.4. IMPRESSION: 1. Decompensated congestive failure secondary to left ventricular systolic dysfunction. 2. History of myocardial infarction. 3. Atrial fibrillation, paroxysmal in nature, and this seems to be new. 4. History of hypertension. 5. History of diabetes mellitus. 6. Chronic kidney disease, stage III. 7. Anemia. 8. Bilateral pleural effusion, right greater than left, and most likely related to her underlying congestive failure, and this is being addressed. She is also being monitored by thoracic surgeon. Mrs. Yesi Langston seems to be stable from a cardiac point of view, on a beta heidi and now on Entresto for her underlying decompensated congestive failure secondary to left ventricular systolic dysfunction. In the past, she was on an TYRELL inhibitor, lisinopril. She is on diuretics, and she needs to be monitored closely because of the Entresto. Will check tonight her BUN, creatinine, and serum potassium. Her basic metabolic panel (BMP) this morning revealed a serum potassium of 3.3, but she received some oral potassium. We need to also monitor closely her blood pressure because of the Entresto. Will continue current management for now, and I will follow her along with you. Her telemetry strips last night revealed paroxysmal atrial fibrillation, and in view of her overall stroke risk, she was started on Eliquis, and I have stopped the subcutaneous heparin for her deep vein thrombosis (DVT) prophylaxis. In view of her anemia, I also will stop the aspirin. Will continue the Eliquis at small dose of 2.5 mg by mouth twice a day. 9. Chronic kidney disease, she will need to be monitored because of the Entresto and the furosemide/Lasix. It was a pleasure to participate the care of . Yesi Langston for her underlying cardiac condition. I will continue to monitor her along with you over the weekend. Please do not hesitate to call if any questions. Her hospitalist will be informed about the changes her medications.
[2020-01-28] MEDS: SERTRALINE 100 MG TAB PO SCH (11:55)
[2020-01-28 12:00] VITALS: BP 101/53
[2020-01-28] MEDS ORDERED: FUROSEMIDE 40MG/4ML VIAL (J1940) IV SCH (12:00)
--- NOTE | 2020-01-28 12:06 | REP ---
REASON FOR EXAM: Followup. COMPARISON: Multiple, the latest yesterday. Bilateral basilar opacities are seen, status quo. Bilateral pleural effusions are unchanged, right greater than left. There are no new abnormal opacities. There is no change in the cardiomediastinal silhouette. There is no change in the osseous structures. IMPRESSION: There has been no significant change. Electronically Signed by Oral Bradshaw DO 01/28/2020 12:08 P
--- NOTE | 2020-01-28 12:33 | IPN ---
DATE: 01/28/2020 Ms. Langston continues to do well today. She is breathing well. Her edema is less and her chest x-ray is improved. Her vital signs shows a T-max of 97.9 with a heart rate that ranges between 83 and 74 in a sinus rhythm, a respiratory rate of 16 to 18 without the use of accessory muscles who is 94% to 92% saturated on room air and whose blood pressure is ranging between 107/60 to 126/60. Her intake and output the past 24 hours is recorded as 520 in and 1975 out for a negativity of 1455 mL. She weighs 56 kg today compared to 58.7 kg yesterday and 59 kg on admission. On physical examination, she still has bilateral inspiratory rales, but her percussion note is full to the diaphragm. Cardiac exam is without murmurs, clicks, gallops or rubs. I cannot feel her point of maximal impulse (PMI). S1, S2 are normal. Abdomen is soft, nontender. Bowel sounds are positive. Extremities show 1+ to trace pretibial edema. Without calf tenderness. There is no differential swelling of the upper extremities. Skin is warm, dry and perfused, without cyanosis or mottling, including that of the nail beds and the knees. Neck is supple. There is no jugular venous distention. No subcutaneous emphysema. Trachea is midline. Mouth shows her mucous membranes to be pink and moist. Lips and commissures are without lesions. There is no thrush. Eyes show her pupils to be equal and reactive. Extraocular motions intact. Sclerae nonicteric. Neurologic: Shows II-XII intact along with gross motor and gross sensation intact. Gait is not tested. Psychiatric shows her to be awake, alert and conversational. Her white count today is 9.9, unchanged from yesterday, with hemoglobin and hematocrit of 10.6 and 33.8, increased from 9.3 and 29.3 respectively secondary to hemoconcentration. Platelet count is 383. Chemistries today show essentially normal electrolytes with BUN and creatinine of 28 and 1.43, just slightly changed from yesterday of 30 and 1.49. Glucose is 143 with a calcium of 8.6 and a corresponding albumin of 2.4. AST and ALT are normal. Her chest x-ray today shows an improvement in the right pleural effusion. Lungs are fully expanded to the chest wall. I see no infiltrates. IMPRESSION: 1. Right pleural effusion, moderate, improving. 2. Left pleural effusion, small, both secondary to #3. 3. Congestive heart failure with left ventricular ejection fraction of 25%. 4. Right ventricular dysfunction with elevated CVP secondary to left heart failure. 5. Diabetes. 6. Hypertension. 7. Hypothyroidism. 8. Coronary artery disease, status post myocardial infarction in the remote past. 9. Alzheimer dementia. 10. Mild renal insufficiency secondary to cardiac dysfunction. PLAN AND DISCUSSION: She is now on the right track and it looks as though medical therapy with IV Lasix and ENTRESTO is improving her failure. Her peripheral edema is much better and her chest x-ray is improving. I will therefore withdraw from the case. Should she reaccumulate and her heart failure is uncontrollable, I will always be available for reconsultation for a drainage procedure.
[2020-01-28] MEDS: SLF 3 ML SYR IV SCH ×2 (14:00→21:51)
[2020-01-28 16:00] VITALS: BP 92/56
--- NOTE | 2020-01-28 18:14 | IPNPDOC ---
Date Seen The patient was seen on 01/28/20. Progress Note SUBJECTIVE: Patient awake, pleasant with at bedside. Neg fluid balance; however, some hypotension later in the day. Given 250 cc bolus NSS. Holding parameters were placed on BB, holding night dose of lasix. Thoracic surgery to hold off on intervention, as repeat CXR appear improved. Denies chest pain, increased SOB, n/v/d. OBJECTIVE: VITAL SIGNS: Please see below PHYSICAL EXAMINATION: CONSTITUTIONAL: No acute distress, resting comfortably, AAO x 2, pleasantl EYES: PERRLA, EOM intact HENT, MOUTH: Normocephalic, atraumatic, moist mucous membranes NECK: SUPPLE, no JVD, no lymphadenopathy, no carotid bruit CV: Regular rate and rhythm, S1S2 normal, no murmurs/rubs/gallops RESPIRATORY: Decreased breath sounds bilaterally in posterior bases, crackles- mildly improved GI: BS positive in 4 quadrants, soft, nontender, nondistended, no rebound or guarding, no organomegaly : Deferred MUSCULOSKELETAL: Normal ROM. No cyanosis, clubbing, swelling, joint deformity, +1 extremity edema INTEGUMENTARY: Intact, no rashes, no lesions, no erythema NEUROLOGIC: Cranial Nerves II-XII are intact, no focal deficits CURRENT MEDICATIONS: Please see below LABORATORY DATA: Please see below IMAGING: CXR: There has been no significant change Dr. Kurtz reviewed imaging, and feels improved right pleural effusion, small left pleural effusion ASSESSMENT: 84 y/o F with PMH of DM type II, Alzheimer's dementia, CAD who was admitted for acute systolic CHF, bilateral pleural effusions. PLAN: 1. Hypotension likely 2/2 to overdiuresis, hx of HTN. -Neg fluid balance, asymptomatic. -Giving small 250 cc bolus -Holding parameters on BB, holding lasix for the day today -Monitor I&O's closely -Tele 2. Acute systolic CHF exacerbation - Neg 1400/24 hrs, corley now in place -Echo: EF 25% -C/w BB, Entresto, lasix BID (holding night dose) -Monitor I&O's closely, fluid restriction, daily wt -Cardiology following 3. Bilateral pleural effusions -CXR 01/27: right pleural effusion showed some improvement, small left pleural effusion -Dr. Kurtz (thoracic surgery) consulted and does not feel at this time patient is in need of pleuracentesis -C/w diuresis and management of systolic CHF above 4. CRISTA (acute kidney injury) likely prerenal secondary to CHF exacerbation due t o intravascular depletion -Cr slightly improved, remains volume overloaded -Monitor Cr closely while on ACEi, lasix Q12hrs -Daily labs. 5. Paroxysmal atrial fib -currently NSR -C/w BB with holding parameters, eliquis -Monitor on tele 6. Hyponatremia likely 2/2 to diuresis -Na improved this AM -Decreased frequency and dose of lasix -F/u AM labs. 7. Hypokalemia likely 2/2 to diuresis- Resolved -f/u AM labs 8. Hypothyroidism, chronic -levothyroxine 9. DM type II -C/w ISS 10. GERD -PPI 11. DVT px -Eliquis DISPOSITION: Currently inpatient status. Will discuss with team in AM about discharge plans. VS, I&O, 24H, Fishbone Vital Signs/I&O Vital Signs Date Time Temp Pulse Resp B/P (MAP) Pulse Ox O2 Delivery O2 Flow Rate FiO2 01/28/20 16:00 97.0 71 16 92/56 (68) 98 Room Air 01/26/20 04:00 2.0 I&O- Last 24 Hours up to 6 AM 01/28/20 06:00 Intake Total 420 ml Output Total 2100 ml Balance -1680 ml Laboratory Data 24H LABS Laboratory Tests 2 01/27/20 19:13: Anion Gap 6L, Glomerular Filtration Rate 35.3, Calcium Level 8.8 01/27/20 21:50: Bedside Glucose (Misc Panel) 165H 01/28/20 06:32: Bedside Glucose (Misc Panel) 147H 01/28/20 07:48: Anion Gap 11, Glomerular Filtration Rate 37.0, Calcium Level 8.6L, Nucleated Red Blood Cells % (auto) 0.0, Total Bilirubin 0.5, Aspartate Amino Transf (AST/SGOT) 22, Alanine Aminotransferase (ALT/SGPT) 25, Alkaline Phosphatase 95, Total Protein 6.2L, Albumin 2.4L, Albumin/Globulin Ratio 0.6L 01/28/20 11:18: Bedside Glucose (Misc Panel) 203H 01/28/20 17:15: Bedside Glucose (Misc Panel) 91 CBC/BMP Laboratory Tests 01/27/20 19:13 01/28/20 07:48 Microbiology Microbiology 01/25/20 Blood Culture - Preliminary, Resulted No Growth after 72 hours. All specime... 01/25/20 Blood Culture - Preliminary, Resulted No Growth after 72 hours. All specime... Current Medications Current Medications Medications (Trade) Dose Ordered Sig/Nat Route PRN Reason Start Time Stop Time Status Last Admin Dose Admin Acetaminophen (Tylenol Tab) 650 mg Q4H PRN PO PAIN OR FEVER 01/25/20 18:15 Apixaban (Eliquis) 2.5 mg BID PO 01/27/20 21:00 01/28/20 08:12 Aspirin (Ecotrin) 81 mg QHS PO 01/25/20 21:00 01/27/20 17:24 DC 01/26/20 20:51 Dextrose (Dextrose 50%) 25 ml ASDIRECTED PRN IV SEE LABEL COMMENTS 01/25/20 18:45 Furosemide (LASIX injection) 40 mg Q12H IV 01/26/20 00:00 01/26/20 13:51 DC 01/26/20 10:08 Furosemide (LASIX injection) 40 mg Q4H IV 01/26/20 16:00 01/28/20 08:12 DC 01/28/20 04:26 Furosemide (LASIX injection) 60 mg Q12H IV 01/28/20 12:00 01/28/20 18:12 DC Furosemide (LASIX injection) 60 mg Q12H IV 01/29/20 09:00 Glucagon (Glucagon) 1 mg ASDIRECTED PRN SC SEE LABEL COMMENTS 01/25/20 18:45 Glucose (Glucose) 16 GM ASDIRECTED PRN PO SEE LABEL COMMENTS 01/25/20 18:45 Heparin Sodium (Porcine) (Heparin) 5,000 units Q12H SC 01/25/20 21:00 01/27/20 17:04 DC 01/27/20 08:30 Home Med (Med Rec Complete!) ASDIRECTED XX 01/25/20 18:45 01/25/20 18:48 DC Insulin Human Lispro (HumaLOG INSULIN) SEE PROTOCOL TABLE AC SC 01/26/20 07:30 01/28/20 12:59 Insulin Human Lispro (HumaLOG INSULIN) SEE PROTOCOL TABLE QHS SC 01/25/20 21:00 01/25/20 22:22 Levothyroxine Sodium (Synthroid) 50 mcg DAILY@0600 PO 01/26/20 06:00 01/28/20 05:38 Lisinopril (Prinivil) 5 mg DAILY PO 01/26/20 09:00 01/26/20 13:51 DC 01/26/20 10:09 Metoprolol Succinate (TopROL XL) 25 mg DAILY PO 01/26/20 14:00 01/28/20 08:13 Pantoprazole Sodium (Protonix) 40 mg BID PO 01/25/20 21:00 01/28/20 08:13 Potassium Chloride (Micro-K Extencaps) 40 meq DAILY PO 01/27/20 09:00 01/28/20 08:12 Sacubitril/ Valsartan (Entresto 24-26 Mg) 1 tab BID PO 01/27/20 21:00 01/28/20 08:13 Sertraline HCl (Zoloft) 100 mg DAILY@1200 PO 01/26/20 12:00 01/28/20 11:55 Sodium Chloride (Saline Lock Flush) 2 ml ASDIRECTED PRN IV SEE LABEL COMMENTS 01/28/20 10:15 Sodium Chloride (Saline Lock Flush) 2 ml SLF IV 01/28/20 14:00 01/28/20 14:00 Allergies Coded Allergies: banana (Unverified Allergy, Unknown, 01/04/20) Roxie Greene MD Jan 28, 2020 18:14
[2020-01-28] MEDS ORDERED: NS 260 ML IV ONE (18:15)
[2020-01-28 20:00] VITALS: BP 93/50
[2020-01-29] VITALS: BP 109/55
[2020-01-29 04:00] VITALS: BP 121/58
[2020-01-29 05:47] LABS: HEMATOCRIT 36.9 % (36.0-47.0); HEMOGLOBIN 11.3 g/dl (12.0-15.5); MEAN CORPUSCULAR HEMOGLOBIN 30.5 pg (27.0-33.0); MEAN CORPUSCULAR HGB CONC 30.6 g/dl (32.0-36.5); MEAN CORPUSCULAR VOLUME 99.5 fl (80.0-96.0); PLATELET COUNT, AUTOMATED 424 10^3/uL (150-450); RED BLOOD COUNT 3.71 10^6/uL (4.00-5.40); WHITE BLOOD COUNT 11.1 10^3/uL (4.0-10.0)
[2020-01-29 06:10] LABS: ALBUMIN 2.7 GM/DL (3.2-5.2); BILIRUBIN,TOTAL 0.6 MG/DL (0.2-1.0); CALCIUM LEVEL 8.7 MG/DL (8.8-10.2); CREATININE FOR GFR 1.5 MG/DL (0.55-1.30); GLOMERULAR FILTRATION RATE 35.1 (>32); TOTAL PROTEIN 6.6 GM/DL (6.4-8.2)
[2020-01-29] MEDS: LEVOTHYROXINE 50MCG TABLET (0.05MG) PO SCH (06:23)
[2020-01-29] MEDS: SLF 3 ML SYR IV SCH ×3 (06:24→21:20)
[2020-01-29 08:00] VITALS: BP 107/60
[2020-01-29] MEDS: METOPROLOL SUCC *XL* 25MG TAB (TopROL *XL*) PO SCH (09:00)
[2020-01-29] MEDS: TORSEMIDE 20 MG TAB PO SCH ×2 (09:00→11:34)
[2020-01-29] MEDS ORDERED: FUROSEMIDE 40MG/4ML VIAL (J1940) IV SCH ×2 (09:00→12:00)
[2020-01-29] MEDS: PANTOPRAZOLE 40MG TAB (PROTONIX) PO SCH ×2 (09:22→21:20)
[2020-01-29] MEDS: POTASSIUM CHLORIDE 10 MEQ SR TABLET PO SCH (09:22)
[2020-01-29] MEDS: APIXABAN 2.5 MG TAB (ELIQUIS) PO SCH ×2 (09:22→21:20)
[2020-01-29] MEDS: HumaLOG INSULIN (NovoLOG) PER UNIT SC SCH ×4 (09:23→21:00)
[2020-01-29] MEDS: ENTRESTO 24-26MG TABLET (SACUBITRIL/VALSARTAN) PO SCH ×2 (09:23→21:20)
--- NOTE | 2020-01-29 09:49 | REP ---
CHEST X-RAY: Two views. HISTORY: Pleural effusion. COMPARISON CHEST X-RAY: January 28, 2020. FINDINGS: There is blunting of the pleural angles bilaterally, right greater than left consistent with small bilateral effusions. This is unchanged. The pleural based opacity is again seen projecting the left mid lung zone posteriorly also unchanged. Heart is not enlarged. Pulmonary vasculature is not increased. The thoracic aorta slightly tortuous. No acute bony abnormality. IMPRESSION: Small bilateral pleural effusions right greater than left. Pleural based opacity left mid lung zone posteriorly. No new infiltrate. Electronically Signed by Edinson Garcia MD 01/29/2020 04:13 P
--- NOTE | 2020-01-29 10:43 | IPN ---
DATE: 01/28/2020 Mrs. Yesi Langston was seen earlier this morning, she was sitting in the chair in no acute distress at rest in the room. She has been doing well with good urinary output. According to a family member present in the room, the patient is doing much better. There is no report of chest pain, palpitations. There is no orthopnea. There is no report of bleeding. Yesterday, she has started her Entresto. On Wednesday night, she had an episode of paroxysmal atrial fibrillation and yesterday I have started her on the Eliquis at the current dose. Her aspirin and subcutaneous heparin were discontinued. She was hypokalemic, now corrected. PHYSICAL EXAMINATION: The patient is alert and oriented, in no acute distress at rest and her most recent vital signs reveal blood pressure of 107/60 with a pulse of 74, respiration 17 and her maximum temperature is 97.9 degrees Fahrenheit with an oxygen saturation of 94% on room air. She has a negative fluid balance of 1.4 liters for 01/27/2020. Her weight today was 56 kg and yesterday 58.7 kg. Examination of head atraumatic. Neck is supple and no JVD appreciated with sitting up. The lungs revealed decreased breath sounds at the bases. No wheezing. Otherwise minimal scattered crackles noted. Abdomen is soft. Extremities reveal trace bilateral lower leg / ankle edema. Neurological examination grossly is negative for focal deficit. LABORATORY DATA: BMP done today revealed a sodium of 136, potassium 4.0, chloride 97, CO2 28, BUN 28, creatinine 1.4, GFR 37.0 and fasting glucose 143 with a calcium of 8.6. Liver enzymes revealed a total bilirubin 0.5, AST 22, ALT 25, alkaline phosphatase 95, total protein 6.2, albumin 2.4. CBC revealed WBC of 9.9, hemoglobin 10.6, hematocrit 33.8 and platelet 283,000. Telemetry strips were reviewed and revealed normal sinus rhythm. IMPRESSION: 84-year-old woman admitted with decompensated congestive failure and she was found to have a severely depressed global left ventricular systolic function by echocardiogram. Now on Entresto as well as beta heidi, and diuretics with furosemide and her condition has been improving. While in the hospital, she was found to be in atrial fibrillation, paroxysmal in nature and she is now on Eliquis at the small dose. Her aspirin was discontinued particularly in view of her anemia. She appears to be stable and no medication changes will be made today. Tomorrow, Dr. Bailey will be seeing her. Case was discussed yesterday with her hospitalist after reviewing and changing her medications. It was a pleasure to participate the care of Mrs. Yesi Langston for her underlying cardiac condition. Dr. Bailey, as mentioned above, will be seeing her tomorrow. Please do not hesitate to call if any changes in her condition.
[2020-01-29] MEDS: SERTRALINE 100 MG TAB PO SCH (11:33)
[2020-01-29 12:00] VITALS: BP 94/46
[2020-01-29] MEDS: MAGNESIUM CHLORIDE 64 MG TABCR (SLO MAG) PO SCH (13:31)
[2020-01-29 16:00] VITALS: BP 106/55
--- NOTE | 2020-01-29 19:21 | IPNPDOC ---
Date Seen The patient was seen on 01/29/20. Progress Note SUBJECTIVE: -1485/24 hrs, Cr increased to 1.5. Diuretic decreased. Hematuria overnight and eliquis held. Eliquis restarted later today. Denies chest pain, increased SOB, n/v/d. OBJECTIVE: VITAL SIGNS: Please see below PHYSICAL EXAMINATION: CONSTITUTIONAL: No acute distress, resting comfortably, AAO x 2, pleasantl EYES: PERRLA, EOM intact HENT, MOUTH: Normocephalic, atraumatic, moist mucous membranes NECK: SUPPLE, no JVD, no lymphadenopathy, no carotid bruit CV: Regular rate and rhythm, S1S2 normal, no murmurs/rubs/gallops RESPIRATORY: Decreased breath sounds bilaterally in posterior bases, crackles- mildly improved GI: BS positive in 4 quadrants, soft, nontender, nondistended, no rebound or guarding, no organomegaly : Deferred MUSCULOSKELETAL: Normal ROM. No cyanosis, clubbing, swelling, joint deformity, +1 extremity edema INTEGUMENTARY: Intact, no rashes, no lesions, no erythema NEUROLOGIC: Cranial Nerves II-XII are intact, no focal deficits CURRENT MEDICATIONS: Please see below LABORATORY DATA: Please see below IMAGING: CXR: Small bilateral pleural effusions right greater than left. Pleural based opacity left mid lung zone posteriorly. No new infiltrate. ASSESSMENT: 84 y/o F with PMH of DM type II, Alzheimer's dementia, CAD who was admitted for acute systolic CHF, bilateral pleural effusions. PLAN: 1. Hematuria possibly 2/2 to tugging of corley catheter -Resolved earlier in the day -resumed eliquis -H/H stable. -f/u daily labs 2. CRISTA (acute kidney injury) likely prerenal secondary to CHF exacerbation due to intravascular depletion, diuretic use -Cr increased to 1.5, neg 1400/24 hrs -Decreased diuretic the last several days in a row and stopped lasix today, switched to torsemide -If continues to worsen, consider stopping Entresto (ACEi/ARB combo) -F/u daily labs. 3. Acute systolic CHF exacerbation - Neg 1400/24 hrs -Echo: EF 25% -C/w BB, Entresto, torsemide -Monitor I&O's closely, fluid restriction, daily wt -Cardiology following 4. Hypotension likely 2/2 to overdiuresis, hx of HTN. - resolved -Neg fluid balance, asymptomatic. -S/p 250 cc bolus 01/28/20 -Holding parameters on BB, parameters to hold diuretic with fluid restriction -Monitor I&O's closely -Tele 5. Bilateral pleural effusions -CXR 01/28: see above -Dr. Kurtz (thoracic surgery) consulted and does not feel at this time patient is in need of pleuracentesis. Signed off. -If diuresis continues to incr Cr, may want to discuss again with Dr. Kurtz -C/w diuresis and management of systolic CHF 6. Paroxysmal atrial fib -currently NSR -C/w BB with holding parameters, eliquis -Monitor on tele 7. Hyponatremia likely 2/2 to diuresis -Na 134 -Decreased diuretic -F/u AM labs. 8. Hypokalemia likely 2/2 to diuresis- Resolved -f/u AM labs 9. Hypothyroidism, chronic -levothyroxine 10. DM type II -C/w ISS 11. GERD -PPI 12. DVT px -Eliquis DISPOSITION: Currently inpatient status. Doing well with PT/OT. Plan is discharge home when medically improved. VS, I&O, 24H, [facility] Vital Signs/I&O Vital Signs Date Time Temp Pulse Resp B/P (MAP) Pulse Ox O2 Delivery O2 Flow Rate FiO2 01/29/20 16:00 99.0 89 18 106/55 (72) 92 Room Air 01/26/20 04:00 2.0 I&O- Last 24 Hours up to 6 AM 01/29/20 06:00 Intake Total 740 ml Output Total 1700 ml Balance -960 ml Laboratory Data 24H LABS Laboratory Tests 2 01/28/20 20:27: Bedside Glucose (Misc Panel) 255H 01/29/20 05:18: Nucleated Red Blood Cells % (auto) 0.0, Anion Gap 9, Glomerular Filtration Rate 35.1, Calcium Level 8.7L, Total Bilirubin 0.6, Aspartate Amino Transf (AST/SGOT) 19, Alanine Aminotransferase (ALT/SGPT) 22, Alkaline Phosphatase 91, Total Protein 6.6, Albumin 2.7L, Albumin/Globulin Ratio 0.7L 01/29/20 11:29: Bedside Glucose (Misc Panel) 156H 01/29/20 16:28: Bedside Glucose (Misc Panel) 113H CBC/BMP Laboratory Tests 01/29/20 05:18 Microbiology Microbiology 01/25/20 Blood Culture - Preliminary, Resulted No Growth after 72 hours. All specime... 01/25/20 Blood Culture - Preliminary, Resulted No Growth after 72 hours. All specime... Current Medications Current Medications Medications (Trade) Dose Ordered Sig/Nat Route PRN Reason Start Time Stop Time Status Last Admin Dose Admin Acetaminophen (Tylenol Tab) 650 mg Q4H PRN PO PAIN OR FEVER 01/25/20 18:15 Apixaban (Eliquis) 2.5 mg BID PO 01/27/20 21:00 01/29/20 09:22 Aspirin (Ecotrin) 81 mg QHS PO 01/25/20 21:00 01/27/20 17:24 DC 01/26/20 20:51 Dextrose (Dextrose 50%) 25 ml ASDIRECTED PRN IV SEE LABEL COMMENTS 01/25/20 18:45 Furosemide (LASIX injection) 40 mg Q12H IV 01/26/20 00:00 01/26/20 13:51 DC 01/26/20 10:08 Furosemide (LASIX injection) 40 mg Q12H IV 01/29/20 12:00 01/29/20 10:52 DC Furosemide (LASIX injection) 40 mg Q4H IV 01/26/20 16:00 01/28/20 08:12 DC 01/28/20 04:26 Furosemide (LASIX injection) 60 mg Q12H IV 01/28/20 12:00 01/28/20 18:12 DC Furosemide (LASIX injection) 60 mg Q12H IV 01/29/20 09:00 01/29/20 07:46 DC Glucagon (Glucagon) 1 mg ASDIRECTED PRN SC SEE LABEL COMMENTS 01/25/20 18:45 Glucose (Glucose) 16 GM ASDIRECTED PRN PO SEE LABEL COMMENTS 01/25/20 18:45 Heparin Sodium (Porcine) (Heparin) 5,000 units Q12H SC 01/25/20 21:00 01/27/20 17:04 DC 01/27/20 08:30 Home Med (Med Rec Complete!) ASDIRECTED XX 01/25/20 18:45 01/25/20 18:48 DC Insulin Human Lispro (HumaLOG INSULIN) SEE PROTOCOL TABLE AC SC 01/26/20 07:30 01/29/20 17:10 Insulin Human Lispro (HumaLOG INSULIN) SEE PROTOCOL TABLE QHS SC 01/25/20 21:00 01/28/20 20:51 Levothyroxine Sodium (Synthroid) 50 mcg DAILY@0600 PO 01/26/20 06:00 01/29/20 06:23 Lisinopril (Prinivil) 5 mg DAILY PO 01/26/20 09:00 01/26/20 13:51 DC 01/26/20 10:09 Magnesium Chloride (Slow-Mag) 64 mg DAILY PO 01/29/20 09:00 01/29/20 13:31 Metoprolol Succinate (TopROL XL) 25 mg DAILY PO 01/26/20 14:00 01/28/20 08:13 Pantoprazole Sodium (Protonix) 40 mg BID PO 01/25/20 21:00 01/29/20 09:22 Potassium Chloride (Micro-K Extencaps) 40 meq DAILY PO 01/27/20 09:00 01/29/20 09:22 Sacubitril/ Valsartan (Entresto 24-26 Mg) 1 tab BID PO 01/27/20 21:00 01/29/20 09:23 Sertraline HCl (Zoloft) 100 mg DAILY@1200 PO 01/26/20 12:00 01/29/20 11:33 Sodium Chloride (Saline Lock Flush) 2 ml ASDIRECTED PRN IV SEE LABEL COMMENTS 01/28/20 10:15 Sodium Chloride (Saline Lock Flush) 2 ml SLF IV 01/28/20 14:00 01/29/20 13:23 Torsemide (Demadex) 20 mg DAILY PO 01/29/20 09:00 Allergies Coded Allergies: banana (Unverified Allergy, Unknown, 01/04/20) Roxie Greene MD Jan 29, 2020 19:21
[2020-01-29 20:00] VITALS: BP 109/58
[2020-01-30] VITALS: BP 118/58
[2020-01-30 04:00] VITALS: BP 124/58
[2020-01-30 05:44] LABS: HEMATOCRIT 34.3 % (36.0-47.0); HEMOGLOBIN 10.7 g/dl (12.0-15.5); MEAN CORPUSCULAR HEMOGLOBIN 31.1 pg (27.0-33.0); MEAN CORPUSCULAR HGB CONC 31.2 g/dl (32.0-36.5); MEAN CORPUSCULAR VOLUME 99.7 fl (80.0-96.0); PLATELET COUNT, AUTOMATED 387 10^3/uL (150-450); RED BLOOD COUNT 3.44 10^6/uL (4.00-5.40); WHITE BLOOD COUNT 10.1 10^3/uL (4.0-10.0)
[2020-01-30 06:11] LABS: ALBUMIN 2.5 GM/DL (3.2-5.2); BILIRUBIN,TOTAL 0.3 MG/DL (0.2-1.0); CALCIUM LEVEL 8.6 MG/DL (8.8-10.2); CREATININE FOR GFR 1.33 MG/DL (0.55-1.30); GLOMERULAR FILTRATION RATE 40.3 (>32); POTASSIUM SERUM 4.6 MEQ/L (3.5-5.1); TOTAL PROTEIN 6.8 GM/DL (6.4-8.2)
[2020-01-30] MEDS: LEVOTHYROXINE 50MCG TABLET (0.05MG) PO SCH (06:18)
[2020-01-30] MEDS: SLF 3 ML SYR IV SCH ×2 (06:18→13:17)
[2020-01-30 08:00] VITALS: BP 127/60
[2020-01-30] MEDS: POTASSIUM CHLORIDE 10 MEQ SR TABLET PO SCH (08:13)
[2020-01-30] MEDS: PANTOPRAZOLE 40MG TAB (PROTONIX) PO SCH (08:13)
[2020-01-30] MEDS: TORSEMIDE 20 MG TAB PO SCH (08:13)
[2020-01-30] MEDS: APIXABAN 2.5 MG TAB (ELIQUIS) PO SCH (08:13)
[2020-01-30] MEDS: HumaLOG INSULIN (NovoLOG) PER UNIT SC SCH ×2 (08:13→11:23)
[2020-01-30] MEDS: MAGNESIUM CHLORIDE 64 MG TABCR (SLO MAG) PO SCH (08:13)
[2020-01-30] MEDS: ENTRESTO 24-26MG TABLET (SACUBITRIL/VALSARTAN) PO SCH (08:13)
[2020-01-30 08:14] VITALS: BP 127/60
[2020-01-30] MEDS: METOPROLOL SUCC *XL* 25MG TAB (TopROL *XL*) PO SCH (08:14)
[2020-01-30] MEDS ORDERED: MAGN64TASA PO (08:15)
[2020-01-30] MEDS ORDERED: ELIQ2.5T PO (08:15)
[2020-01-30] MEDS ORDERED: KLOR10TA76 PO (08:15)
[2020-01-30] MEDS ORDERED: METO1TAB32 PO (08:15)
[2020-01-30] MEDS ORDERED: TORS20TA2 PO (08:15)
[2020-01-30] MEDS ORDERED: ENTR1TAB PO (08:15)
[2020-01-30 11:20] VITALS: BP 99/59
[2020-01-30] MEDS: SERTRALINE 100 MG TAB PO SCH (11:23)
== END 2020-01-30 16:16 | disposition home or self-care (01) | DRG 291 ==
LOC: EDBD 14:45 → M ED 14:45 → M ED INP 18:21 → ENRESERV 19:00 → M PCU 21:25
PROVIDERS: ADMIT Internal Medicine; ATTEND Internal Medicine
DX: I13.0 Hypertensive heart and chronic kidney disease with heart failure and stage 1 through stage 4 chronic kidney disease, or unspecified chronic kidney disease (principal); I50.23 Acute on chronic systolic (congestive) heart failure; N17.9 Acute kidney failure, unspecified; E87.1 Hypo-osmolality and hyponatremia; E11.9 Type 2 diabetes mellitus without complications; I95.9 Hypotension, unspecified; N18.3 Chronic kidney disease, stage 3 (moderate); F02.80 Dementia in other diseases classified elsewhere, unspecified severity, without behavioral disturbance, psychotic disturbance, mood disturbance, and anxiety; G30.9 Alzheimer's disease, unspecified; I25.10 Atherosclerotic heart disease of native coronary artery without angina pectoris; E03.9 Hypothyroidism, unspecified; F41.9 Anxiety disorder, unspecified; K57.30 Diverticulosis of large intestine without perforation or abscess without bleeding; Z85.828 Personal history of other malignant neoplasm of skin; Z79.899 Other long term (current) drug therapy; Z79.82 Long term (current) use of aspirin; Z91.018 Allergy to other foods; Z96.641 Presence of right artificial hip joint; K21.9 Gastro-esophageal reflux disease without esophagitis; I25.2 Old myocardial infarction; Z95.2 Presence of prosthetic heart valve; M35.3 Polymyalgia rheumatica; I48.0 Paroxysmal atrial fibrillation; E87.6 Hypokalemia; R31.9 Hematuria, unspecified

== ENCOUNTER → 2020-02-20 | Outpatient (REF) | payer MEDICARE, OTHER ==
[~2020-02-20] MED LIST changes: +ELIQ2.5T PO; +ENTR1TAB PO; +KLOR10TA76 PO; +MAGN64TASA PO; +METO1TAB32 PO; +PANT40TA29 PO; +TORS20TA2 PO
[2020-04-04 13:56] LABS: ALBUMIN 3.5 GM/DL (3.2-5.2); BILIRUBIN,TOTAL 0.2 MG/DL (0.2-1.0); BLOOD UREA NITROGEN 26 MG/DL (7-18); CALCIUM LEVEL 9.4 MG/DL (8.8-10.2); CARBON DIOXIDE LEVEL 23 MEQ/L (21-32); CHLORIDE LEVEL 107 MEQ/L (98-107); GLOMERULAR FILTRATION RATE 35.1 (>32); GLUCOSE, FASTING 115 MG/DL (70-100); MAGNESIUM LEVEL 1.8 MG/DL (1.8-2.4); NT-PRO BNP 2079 PG/ML (<450); PHOSPHORUS LEVEL 3.8 MG/DL (2.5-4.9); POTASSIUM SERUM 5.2 MEQ/L (3.5-5.1); SODIUM LEVEL 136 MEQ/L (136-145)
== END ==
LOC: M WUC 10:07
PROVIDERS: ATTEND Internal Medicine Cardiovascular Disease
DX: I50.42 Chronic combined systolic (congestive) and diastolic (congestive) heart failure (principal)

== ENCOUNTER → 2020-06-24 | Outpatient (REF) | payer MEDICARE, OTHER ==
[2020-06-24 17:09] LABS: HEMATOCRIT 39.6 % (36.0-47.0); HEMOGLOBIN 12.3 g/dl (12.0-15.5); MEAN CORPUSCULAR HEMOGLOBIN 31.9 pg (27.0-33.0); MEAN CORPUSCULAR HGB CONC 31.1 g/dl (32.0-36.5); MEAN CORPUSCULAR VOLUME 102.6 fl (80.0-96.0); PLATELET COUNT, AUTOMATED 310 10^3/uL (150-450); RED BLOOD COUNT 3.86 10^6/uL (4.00-5.40); WHITE BLOOD COUNT 8.2 10^3/uL (4.0-10.0)
[2020-06-24 17:41] LABS: ALBUMIN 3.7 GM/DL (3.2-5.2); BILIRUBIN,TOTAL 0.2 MG/DL (0.2-1.0); CALCIUM LEVEL 9.7 MG/DL (8.8-10.2); CHOLESTEROL RISK RATIO 2.023 (<5); CREATININE FOR GFR 1.49 MG/DL (0.55-1.30); GLOMERULAR FILTRATION RATE 35.3 (>32); THYROID STIMULATING HORMONE 3.47 uIU/ML (0.358-3.740); TOTAL 25(OH) VITAMIN D 46.7 NG/ML (30.0-100.0); TOTAL PROTEIN 7.3 GM/DL (6.4-8.2)
[2020-06-24 18:51] LABS: HEMOGLOBIN A1c 6.6 %
== END ==
LOC: M SFHCPLAZ 14:55
PROVIDERS: ATTEND Nurse Practitioner Adult Health
DX: E03.9 Hypothyroidism, unspecified (principal); E11.9 Type 2 diabetes mellitus without complications; E55.9 Vitamin D deficiency, unspecified; I48.0 Paroxysmal atrial fibrillation; Z13.220 Encounter for screening for lipoid disorders
CPT/HCPCS: 36415; 80053; 80061; 82306; 83036; 84443; 85027; G0463

== ENCOUNTER → 2020-12-23 | Outpatient (REF) | payer MEDICARE, OTHER ==
[~2020-12-23] MED LIST changes: -LISI-542 PO; +LISI-898 PO
[2020-12-23 17:22] LABS: HEMATOCRIT 42.3 % (36.0-47.0); HEMOGLOBIN 12.9 g/dl (12.0-15.5); MEAN CORPUSCULAR HEMOGLOBIN 32.3 pg (27.0-33.0); MEAN CORPUSCULAR HGB CONC 30.5 g/dl (32.0-36.5); MEAN CORPUSCULAR VOLUME 105.8 fl (80.0-96.0); PLATELET COUNT, AUTOMATED 319 10^3/uL (150-450); WHITE BLOOD COUNT 9.1 10^3/uL (4.0-10.0)
[2020-12-23 17:34] LABS: HEMOGLOBIN A1c 7.1 %
[2020-12-23 17:57] LABS: BILIRUBIN,TOTAL 0.3 MG/DL (0.2-1.0); CALCIUM LEVEL 9.1 MG/DL (8.8-10.2); CREATININE FOR GFR 1.74 MG/DL (0.55-1.30); GLOMERULAR FILTRATION RATE 29.5 (>32)
[2020-12-23 17:58] LABS: ALBUMIN 3.8 GM/DL (3.2-5.2); CHOLESTEROL RISK RATIO 1.84 (<5); THYROID STIMULATING HORMONE 4.58 uIU/ML (0.358-3.740); TOTAL 25(OH) VITAMIN D 45.3 NG/ML (30.0-100.0); TOTAL PROTEIN 7.5 GM/DL (6.4-8.2)
== END ==
LOC: M SFHCPLAZ 14:20
PROVIDERS: ATTEND Nurse Practitioner Adult Health
DX: Z13.220 Encounter for screening for lipoid disorders (principal); I48.0 Paroxysmal atrial fibrillation; E11.9 Type 2 diabetes mellitus without complications; E55.9 Vitamin D deficiency, unspecified; E03.9 Hypothyroidism, unspecified; Z79.899 Other long term (current) drug therapy
CPT/HCPCS: 36415; 80053; 80061; 82306; 83036; 84443; 85027; G0463

== ENCOUNTER → 2021-06-24 | Outpatient (CLI) | payer MEDICARE, OTHER ==
[~2021-06-24] MED LIST changes: -KLOR10TA76 PO; -LISI-898 PO; +LISI5TAB11 PO; +POTA-136 PO
[2021-06-24 18:00] LABS: ALBUMIN 3.7 GM/DL (3.2-5.2); BILIRUBIN,TOTAL 0.3 MG/DL (0.2-1.0); CALCIUM LEVEL 9.6 MG/DL (8.8-10.2); CREATININE FOR GFR 1.84 MG/DL (0.55-1.30); GLOMERULAR FILTRATION RATE 27.6 (>32); THYROID STIMULATING HORMONE 3.75 uIU/ML (0.358-3.740); TOTAL 25(OH) VITAMIN D 48.5 NG/ML (30.0-100.0); TOTAL PROTEIN 7.4 GM/DL (6.4-8.2)
[2021-06-24 18:24] LABS: HEMOGLOBIN A1c 7.4 %
== END ==
LOC: M PLALAB 14:38
PROVIDERS: ATTEND Nurse Practitioner Adult Health
DX: E55.9 Vitamin D deficiency, unspecified (principal); E11.9 Type 2 diabetes mellitus without complications; I48.0 Paroxysmal atrial fibrillation; E03.9 Hypothyroidism, unspecified
CPT/HCPCS: 36415; 80053; 82306; 83036; 84443; G0463

== ENCOUNTER → 2021-11-13 | Outpatient (CLI) | payer MEDICARE, OTHER ==
[2021-11-13 13:42] LABS: HEMATOCRIT 41.4 % (36.0-47.0); HEMOGLOBIN 12.8 g/dl (12.0-15.5); MEAN CORPUSCULAR HEMOGLOBIN 32.8 pg (27.0-33.0); MEAN CORPUSCULAR HGB CONC 30.9 g/dl (32.0-36.5); MEAN CORPUSCULAR VOLUME 106.2 fl (80.0-96.0); PLATELET COUNT, AUTOMATED 293 10^3/uL (150-450); WHITE BLOOD COUNT 8.9 10^3/uL (4.0-10.0)
[2021-11-13 14:25] LABS: ALBUMIN 3.8 GM/DL (3.2-5.2); BILIRUBIN,TOTAL 0.2 MG/DL (0.2-1.0); CALCIUM LEVEL 10.1 MG/DL (8.8-10.2); CREATININE FOR GFR 1.56 MG/DL (0.55-1.30); GLOMERULAR FILTRATION RATE 33.3 (>32); POTASSIUM SERUM 4.9 MEQ/L (3.5-5.1); THYROID STIMULATING HORMONE 6.65 uIU/ML (0.358-3.740); TOTAL PROTEIN 7.2 GM/DL (6.4-8.2)
[2021-11-13 18:48] LABS: HEMOGLOBIN A1c 7.2 %
== END ==
LOC: M PLALAB 10:32
PROVIDERS: ATTEND Nurse Practitioner Adult Health
DX: I48.0 Paroxysmal atrial fibrillation (principal); E03.9 Hypothyroidism, unspecified; I25.10 Atherosclerotic heart disease of native coronary artery without angina pectoris; E11.9 Type 2 diabetes mellitus without complications

== ENCOUNTER → 2022-06-10 | Outpatient (CLI) | payer MEDICARE, OTHER ==
[2022-06-10 17:45] LABS: HEMATOCRIT 42.8 % (36.0-47.0); HEMOGLOBIN 13.1 g/dl (12.0-15.5); MEAN CORPUSCULAR HEMOGLOBIN 32.4 pg (27.0-33.0); MEAN CORPUSCULAR HGB CONC 30.6 g/dl (32.0-36.5); MEAN CORPUSCULAR VOLUME 105.9 fl (80.0-96.0); PLATELET COUNT, AUTOMATED 293 10^3/uL (150-450); RED BLOOD COUNT 4.04 10^6/uL (4.00-5.40); WHITE BLOOD COUNT 9.2 10^3/uL (4.0-10.0)
[2022-06-10 20:31] LABS: TOTAL 25(OH) VITAMIN D 43.6 NG/ML (20.0-100.0)
[2022-06-10 20:41] LABS: ALBUMIN 3.9 G/DL (3.2-5.2); BILIRUBIN,TOTAL 0.2 MG/DL (0.3-1.2); CALCIUM LEVEL 9.5 MG/DL (8.3-10.6); CREATININE FOR GFR 1.67 MG/DL (0.55-1.30); GLOMERULAR FILTRATION RATE 30.8 (>32); TOTAL PROTEIN 7.1 G/DL (5.7-8.2)
[2022-06-10 22:24] LABS: HEMOGLOBIN A1c 7.3 % (4.0-6.0)
== END ==
LOC: M PLALAB 14:48
PROVIDERS: ATTEND Nurse Practitioner Adult Health
DX: Z00.00 Encounter for general adult medical examination without abnormal findings (principal); E55.9 Vitamin D deficiency, unspecified; E53.8 Deficiency of other specified B group vitamins; I48.0 Paroxysmal atrial fibrillation; E11.9 Type 2 diabetes mellitus without complications

== ENCOUNTER 2022-08-30 19:52 | Inpatient (IN) | payer MEDICARE, BC, OTHER ==
[~2022-08-30] VITALS: Ht 167.6 cm; Wt 72.6 kg
[2022-08-30] MEDS: ENTRESTO 24-26MG TABLET (SACUBITRIL/VALSARTAN) PO SCH (02:20)
[2022-08-30] MEDS ORDERED: ACETAMINOPHEN TAB 650MG DOSE (2X325MG) PO ONE (20:10)
[2022-08-30 20:27] LABS: BASO # 0.1 10^3/uL (0.0-0.2); BASO % 0.3 % (0.0-1.0); HEMATOCRIT 39.2 % (36.0-47.0); HEMOGLOBIN 12.1 g/dl (12.0-15.5); LYMPH # 0.6 10^3/uL (1.5-5.0); LYMPH % 3.8 % (24.0-44.0); MEAN CORPUSCULAR HEMOGLOBIN 32.3 pg (27.0-33.0); MEAN CORPUSCULAR HGB CONC 30.9 g/dl (32.0-36.5); MEAN CORPUSCULAR VOLUME 104.5 fl (80.0-96.0); MONO # 0.9 10^3/uL (0.0-0.8); MONO % 5.3 % (2.0-8.0); NEUTROPHILS # 14.7 10^3/uL (1.5-8.5); NEUTROPHILS % 90.2 % (36.0-66.0); PLATELET COUNT, AUTOMATED 212 10^3/uL (150-450); RED BLOOD COUNT 3.75 10^6/uL (4.00-5.40); WHITE BLOOD COUNT 16.3 10^3/uL (4.0-10.0)
[2022-08-30] MEDS ORDERED: FARX1TAB5 PO (20:31)
[2022-08-30] MEDS ORDERED: ASPIRIN 81MG ENTERIC TABLET PO SCH (21:00)
[2022-08-30 21:14] LABS: ALBUMIN 3.4 G/DL (3.2-5.2); BILIRUBIN,TOTAL 0.5 MG/DL (0.3-1.2); CALCIUM LEVEL 8.9 MG/DL (8.3-10.6); CREATININE FOR GFR 1.48 MG/DL (0.55-1.30); GLOMERULAR FILTRATION RATE 35.4 (>32); POTASSIUM SERUM 4.5 MMOL/L (3.5-5.1); TOTAL PROTEIN 6.7 G/DL (5.7-8.2)
[2022-08-30] MEDS ORDERED: cefTRIAXone SOD 1 GM in D5W MINI-BAG PLUS 50 ML IV ONE (21:40)
[2022-08-30] MEDS ORDERED: AZITHROMYCIN INJ 500 MG, VIAL MATE ADAPTER 1 EACH in NS 250 ML IV ONE (21:40)
[2022-08-30 21:59] LABS: MAGNESIUM LEVEL 1.7 MG/DL (1.8-2.4)
[2022-08-30] MEDS ORDERED: MOM 30ML SUSPENSION UDC PO PRN (22:35)
[2022-08-30] MEDS ORDERED: NS 1,000 ML IV SCH (22:50)
[2022-08-30] MEDS ORDERED: DEXTROSE 50% 50ML SYRINGE IV PRN (22:55)
[2022-08-30] MEDS ORDERED: GLUCAGON INJ 1MG VIAL SC PRN (22:55)
[2022-08-30] MEDS ORDERED: GLUCOSE 4GM CHEW TABLET PO PRN (22:55)
[2022-08-30] MEDS ORDERED: B-12100020 PO (22:59)
[2022-08-30] MEDS ORDERED: ELIQ2.5T PO (22:59)
[2022-08-30] MEDS ORDERED: ENTR1TAB PO (22:59)
[2022-08-30] MEDS ORDERED: ZOLO100T PO (22:59)
[2022-08-30] MEDS ORDERED: VITA100093 PO (22:59)
[2022-08-30] MEDS ORDERED: ACET1TAB55 PO (23:00)
[2022-08-30] MEDS ORDERED: HOME MED LIST COMPLETE! XX SCH (23:05)
[2022-08-30] MEDS: SERTRALINE 100 MG TAB PO SCH (23:44)
[2022-08-31] VITALS (7 sets, daily range): BP systolic 101–161; BP diastolic 48–60
[2022-08-31] MEDS: DONEPEZIL 5 MG TAB PO SCH ×2 (02:21→22:44)
[2022-08-31 04:22] LABS: HEMATOCRIT 34.5 % (36.0-47.0); HEMOGLOBIN 10.8 g/dl (12.0-15.5); MEAN CORPUSCULAR HEMOGLOBIN 32.1 pg (27.0-33.0); MEAN CORPUSCULAR HGB CONC 31.3 g/dl (32.0-36.5); MEAN CORPUSCULAR VOLUME 102.7 fl (80.0-96.0); PLATELET COUNT, AUTOMATED 173 10^3/uL (150-450); RED BLOOD COUNT 3.36 10^6/uL (4.00-5.40); WHITE BLOOD COUNT 13.1 10^3/uL (4.0-10.0)
[2022-08-31 05:04] LABS: ALBUMIN 2.8 G/DL (3.2-5.2); BILIRUBIN,TOTAL 0.5 MG/DL (0.3-1.2); CALCIUM LEVEL 8.7 MG/DL (8.3-10.6); CREATININE FOR GFR 1.38 MG/DL (0.55-1.30); GLOMERULAR FILTRATION RATE 38.3 (>32); POTASSIUM SERUM 4.1 MMOL/L (3.5-5.1); TOTAL PROTEIN 5.7 G/DL (5.7-8.2)
[2022-08-31] MEDS: HEPARIN SOD (PORCINE) 5000UNITS/ML 1ML VIAL/SYRINGE SC SCH ×2 (06:00→14:19)
[2022-08-31] MEDS: LEVOTHYROXINE 50MCG TABLET (0.05MG) PO SCH (06:05)
[2022-08-31] MEDS: DOCUSATE SODIUM 100MG CAPSULE PO SCH ×2 (08:01→22:44)
[2022-08-31] MEDS: ENTRESTO 24-26MG TABLET (SACUBITRIL/VALSARTAN) PO SCH ×2 (08:01→22:44)
[2022-08-31] MEDS: INSULIN LISPRO (NovoLOG) PER UNIT SC SCH ×4 (08:16→21:00)
[2022-08-31 13:02] LABS: HEMOGLOBIN A1c 7.7 % (4.0-6.0)
[2022-08-31] MEDS ORDERED: AZITHROMYCIN 250MG TABLET PO SCH (21:00)
[2022-08-31] MEDS: APIXABAN 2.5 MG TAB (ELIQUIS) PO SCH (22:44)
[2022-08-31] MEDS: SERTRALINE 100 MG TAB PO SCH (22:45)
[2022-08-31] MEDS: cefTRIAXone SOD 1 GM in D5W MINI-BAG PLUS 50 ML IV SCH (22:45)
[2022-09-01 05:50] VITALS: BP 109/45
[2022-09-01] MEDS: LEVOTHYROXINE 50MCG TABLET (0.05MG) PO SCH (06:02)
[2022-09-01 07:06] LABS: BASO % 0.4 % (0.0-1.0); EOS # 0.2 10^3/uL (0.0-0.5); EOS % 1.9 % (0.0-3.0); HEMATOCRIT 34.5 % (36.0-47.0); HEMOGLOBIN 10.8 g/dl (12.0-15.5); LYMPH # 0.9 10^3/uL (1.5-5.0); LYMPH % 9.6 % (24.0-44.0); MEAN CORPUSCULAR HEMOGLOBIN 32.6 pg (27.0-33.0); MEAN CORPUSCULAR HGB CONC 31.3 g/dl (32.0-36.5); MEAN CORPUSCULAR VOLUME 104.2 fl (80.0-96.0); MONO # 0.7 10^3/uL (0.0-0.8); MONO % 7.2 % (2.0-8.0); NEUTROPHILS # 7.7 10^3/uL (1.5-8.5); NEUTROPHILS % 80.4 % (36.0-66.0); PLATELET COUNT, AUTOMATED 176 10^3/uL (150-450); RED BLOOD COUNT 3.31 10^6/uL (4.00-5.40); WHITE BLOOD COUNT 9.6 10^3/uL (4.0-10.0)
[2022-09-01 07:29] LABS: CALCIUM LEVEL 8.1 MG/DL (8.3-10.6); CREATININE FOR GFR 1.37 MG/DL (0.55-1.30); GLOMERULAR FILTRATION RATE 38.6 (>32); POTASSIUM SERUM 3.6 MMOL/L (3.5-5.1)
[2022-09-01] MEDS: INSULIN LISPRO (NovoLOG) PER UNIT SC SCH ×4 (09:51→21:00)
[2022-09-01] MEDS: DOCUSATE SODIUM 100MG CAPSULE PO SCH ×2 (09:52→21:14)
[2022-09-01] MEDS: APIXABAN 2.5 MG TAB (ELIQUIS) PO SCH ×2 (09:52→21:14)
[2022-09-01] MEDS: ENTRESTO 24-26MG TABLET (SACUBITRIL/VALSARTAN) PO SCH ×2 (09:52→21:14)
[2022-09-01 14:00] VITALS: BP 106/47
[2022-09-01] MEDS ORDERED: AZIT500T5 PO (14:45)
[2022-09-01] MEDS ORDERED: CEFD300CAP PO (14:45)
[2022-09-01] MEDS ORDERED: IPRATROPIUM 0.5MG/ALBUTEROL 2.5MG INH SOL UD 3ML (DUONEB) NEB PRN (15:40)
[2022-09-01] MEDS: SODIUM CHLORIDE HYPERTONIC 3% 15ML NEB SOL INH SCH (16:25)
[2022-09-01 16:26] VITALS: O2SAT 94
[2022-09-01] MEDS: LevoFLOXacin 750 MG TABLET PO SCH (16:32)
[2022-09-01] MEDS: IPRATROPIUM 0.5MG/ALBUTEROL 2.5MG INH SOL UD 3ML (DUONEB) NEB SCH (20:15)
[2022-09-01] MEDS: ACETYLCYSTEINE 20% 4 ML VIAL (200MG/ML) INH SCH (20:15)
[2022-09-01 21:10] VITALS: BP 118/52
[2022-09-01] MEDS: DONEPEZIL 5 MG TAB PO SCH (21:14)
[2022-09-01] MEDS: cefTRIAXone SOD 1 GM in D5W MINI-BAG PLUS 50 ML IV SCH (21:14)
[2022-09-01] MEDS: SERTRALINE 100 MG TAB PO SCH (21:14)
[2022-09-02] MEDS: SODIUM CHLORIDE HYPERTONIC 3% 15ML NEB SOL INH SCH ×3 (01:23→14:25)
[2022-09-02] MEDS: IPRATROPIUM 0.5MG/ALBUTEROL 2.5MG INH SOL UD 3ML (DUONEB) NEB SCH ×4 (01:23→19:54)
[2022-09-02 05:30] VITALS: BP 116/52
[2022-09-02] MEDS: LEVOTHYROXINE 50MCG TABLET (0.05MG) PO SCH (05:32)
[2022-09-02 07:33] LABS: BASO % 0.4 % (0.0-1.0); EOS # 0.1 10^3/uL (0.0-0.5); EOS % 0.9 % (0.0-3.0); HEMOGLOBIN 10.2 g/dl (12.0-15.5); LYMPH # 0.7 10^3/uL (1.5-5.0); LYMPH % 7.5 % (24.0-44.0); MEAN CORPUSCULAR HEMOGLOBIN 32.6 pg (27.0-33.0); MEAN CORPUSCULAR HGB CONC 31.9 g/dl (32.0-36.5); MEAN CORPUSCULAR VOLUME 102.2 fl (80.0-96.0); MONO # 0.8 10^3/uL (0.0-0.8); MONO % 8.2 % (2.0-8.0); NEUTROPHILS % 82.1 % (36.0-66.0); PLATELET COUNT, AUTOMATED 214 10^3/uL (150-450); RED BLOOD COUNT 3.13 10^6/uL (4.00-5.40); WHITE BLOOD COUNT 9.8 10^3/uL (4.0-10.0)
[2022-09-02 07:55] LABS: CALCIUM LEVEL 8.3 MG/DL (8.3-10.6); CREATININE FOR GFR 1.34 MG/DL (0.55-1.30); GLOMERULAR FILTRATION RATE 39.6 (>32); POTASSIUM SERUM 3.9 MMOL/L (3.5-5.1)
[2022-09-02 08:16] VITALS: O2SAT 93
[2022-09-02] MEDS: ACETYLCYSTEINE 20% 4 ML VIAL (200MG/ML) INH SCH ×2 (08:18→19:55)
[2022-09-02] MEDS: DOCUSATE SODIUM 100MG CAPSULE PO SCH ×2 (09:16→20:31)
[2022-09-02] MEDS: ENTRESTO 24-26MG TABLET (SACUBITRIL/VALSARTAN) PO SCH (09:16)
[2022-09-02] MEDS: INSULIN LISPRO (NovoLOG) PER UNIT SC SCH ×4 (09:16→20:32)
[2022-09-02] MEDS: APIXABAN 2.5 MG TAB (ELIQUIS) PO SCH (09:16)
[2022-09-02] MEDS ORDERED: LEVO1TAB40 PO (09:38)
[2022-09-02] MEDS ORDERED: LORazepam 2 MG/ML 1ML VIAL IV PRN (10:55)
[2022-09-02] MEDS ORDERED: MORPHINE 10MG/0.5ML ORAL CONCENTRATE SOLUTION U/D SL PRN (10:55)
[2022-09-02] MEDS ORDERED: ONDANSETRON 4MG 2ML VIAL IV PRN (10:55)
[2022-09-02] MEDS ORDERED: ONDANSETRON 4MG ORAL DISINTEGRATING TAB PO PRN (10:55)
[2022-09-02] MEDS ORDERED: HYOSCYAMINE SULFATE 0.125 MG SUBL TABLET PO PRN (10:55)
[2022-09-02] MEDS ORDERED: BISACODYL 10MG SUPP PR PRN (10:55)
[2022-09-02] MEDS ORDERED: MORPHINE 2 MG/ML 1ML VIAL IV PRN (10:55)
[2022-09-02] MEDS ORDERED: ATROPINE SULFATE 1% OPHTH SOLN 2ML BTL SL PRN (10:55)
[2022-09-02] MEDS ORDERED: ACETAMINOPHEN TAB 650MG DOSE (2X325MG) PO PRN (10:55)
[2022-09-02] MEDS ORDERED: SCOPOLAMINE 1MG TRANSDERMAL PATCH TOP PRN (10:55)
[2022-09-02] MEDS ORDERED: ACETAMINOPHEN 650MG SUPP PR PRN (10:55)
[2022-09-02] MEDS ORDERED: FLEET ENEMA PR PRN (10:55)
[2022-09-02 14:23] VITALS: O2SAT 92
[2022-09-02] MEDS: DONEPEZIL 5 MG TAB PO SCH (20:31)
[2022-09-02] MEDS: cefTRIAXone SOD 1 GM in D5W MINI-BAG PLUS 50 ML IV SCH ×2 (20:31→20:44)
[2022-09-02] MEDS: SERTRALINE 100 MG TAB PO SCH (20:31)
[2022-09-03] MEDS: IPRATROPIUM 0.5MG/ALBUTEROL 2.5MG INH SOL UD 3ML (DUONEB) NEB SCH ×4 (01:12→20:35)
[2022-09-03] MEDS: SODIUM CHLORIDE HYPERTONIC 3% 15ML NEB SOL INH SCH ×3 (01:12→13:18)
[2022-09-03] MEDS: LevoFLOXacin 750 MG TABLET PO SCH (05:51)
[2022-09-03] MEDS: LEVOTHYROXINE 50MCG TABLET (0.05MG) PO SCH (05:51)
[2022-09-03] MEDS: ACETYLCYSTEINE 20% 4 ML VIAL (200MG/ML) INH SCH ×2 (07:38→20:35)
[2022-09-03] MEDS: DOCUSATE SODIUM 100MG CAPSULE PO SCH ×2 (09:41→21:11)
[2022-09-03 14:00] VITALS: BP 124/57
[2022-09-03 14:09] LABS: BODY FLUID CULTURE Not indicated. (.); LEGIONELLA ANTIGEN URINE Negative (Negative); ORGANISM ID Not indicated. (.); SPECIMEN SOURCE Urine (.); URINE STREP PNEUMONIAE ANTIGEN Negative (Negative)
[2022-09-03] MEDS: DONEPEZIL 5 MG TAB PO SCH (21:11)
[2022-09-03] MEDS: CEFDINIR 300 MG CAP (OMNICEF) PO SCH (21:11)
[2022-09-03] MEDS: SERTRALINE 100 MG TAB PO SCH (21:11)
[2022-09-03] MEDS: LORazepam 1 MG TAB PO PRN (21:11)
[2022-09-03] MEDS: ACETAMINOPHEN 500 MG TAB PO SCH (21:12)
[2022-09-03 21:30] VITALS: BP 143/60
[2022-09-04] MEDS: SODIUM CHLORIDE HYPERTONIC 3% 15ML NEB SOL INH SCH ×3 (01:17→13:47)
[2022-09-04] MEDS: IPRATROPIUM 0.5MG/ALBUTEROL 2.5MG INH SOL UD 3ML (DUONEB) NEB SCH ×4 (01:17→20:15)
[2022-09-04] MEDS: LEVOTHYROXINE 50MCG TABLET (0.05MG) PO SCH (05:07)
[2022-09-04 06:00] VITALS: BP 140/61
[2022-09-04] MEDS: ACETYLCYSTEINE 20% 4 ML VIAL (200MG/ML) INH SCH ×2 (07:30→20:16)
[2022-09-04] MEDS: CEFDINIR 300 MG CAP (OMNICEF) PO SCH (08:58)
[2022-09-04] MEDS: DOCUSATE SODIUM 100MG CAPSULE PO SCH ×2 (08:58→20:31)
[2022-09-04] MEDS: ACETAMINOPHEN 500 MG TAB PO SCH ×2 (08:59→20:31)
[2022-09-04 14:00] VITALS: BP 135/61
[2022-09-04] MEDS: DONEPEZIL 5 MG TAB PO SCH (20:31)
[2022-09-04] MEDS: SERTRALINE 100 MG TAB PO SCH (20:31)
[2022-09-05] MEDS: IPRATROPIUM 0.5MG/ALBUTEROL 2.5MG INH SOL UD 3ML (DUONEB) NEB SCH ×4 (01:58→20:05)
[2022-09-05] MEDS: SODIUM CHLORIDE HYPERTONIC 3% 15ML NEB SOL INH SCH ×4 (01:58→23:13)
[2022-09-05] MEDS: LEVOTHYROXINE 50MCG TABLET (0.05MG) PO SCH (05:29)
[2022-09-05] MEDS: LevoFLOXacin 750 MG TABLET PO SCH (05:29)
[2022-09-05 06:00] VITALS: BP 132/64
[2022-09-05] MEDS: ACETYLCYSTEINE 20% 4 ML VIAL (200MG/ML) INH SCH ×2 (07:56→20:00)
[2022-09-05] MEDS: DOCUSATE SODIUM 100MG CAPSULE PO SCH ×2 (09:20→20:24)
[2022-09-05] MEDS: ACETAMINOPHEN 500 MG TAB PO SCH ×2 (09:22→20:25)
[2022-09-05] MEDS: DONEPEZIL 5 MG TAB PO SCH (20:23)
[2022-09-05] MEDS: SERTRALINE 100 MG TAB PO SCH (20:24)
[2022-09-05] MEDS: LORazepam 1 MG TAB PO PRN (20:24)
[2022-09-06] MEDS: IPRATROPIUM 0.5MG/ALBUTEROL 2.5MG INH SOL UD 3ML (DUONEB) NEB SCH ×4 (01:26→20:02)
[2022-09-06] MEDS: LEVOTHYROXINE 50MCG TABLET (0.05MG) PO SCH (05:48)
[2022-09-06 06:00] VITALS: BP 122/63
[2022-09-06] MEDS: SODIUM CHLORIDE HYPERTONIC 3% 15ML NEB SOL INH SCH ×2 (08:00→13:34)
[2022-09-06] MEDS: ACETYLCYSTEINE 20% 4 ML VIAL (200MG/ML) INH SCH ×2 (08:00→13:34)
[2022-09-06] MEDS: DOCUSATE SODIUM 100MG CAPSULE PO SCH ×2 (09:17→19:59)
[2022-09-06] MEDS: ACETAMINOPHEN 500 MG TAB PO SCH ×2 (09:17→19:59)
[2022-09-06] MEDS: LORazepam 1 MG TAB PO PRN (19:58)
[2022-09-06] MEDS: DONEPEZIL 5 MG TAB PO SCH (19:58)
[2022-09-06] MEDS: SERTRALINE 100 MG TAB PO SCH (20:00)
[2022-09-07] MEDS: IPRATROPIUM 0.5MG/ALBUTEROL 2.5MG INH SOL UD 3ML (DUONEB) NEB SCH ×2 (01:27→07:55)
[2022-09-07] MEDS: SODIUM CHLORIDE HYPERTONIC 3% 15ML NEB SOL INH SCH ×2 (01:27→07:56)
[2022-09-07] MEDS: LEVOTHYROXINE 50MCG TABLET (0.05MG) PO SCH (05:47)
[2022-09-07] MEDS: LevoFLOXacin 750 MG TABLET PO SCH (05:47)
[2022-09-07] MEDS: ACETYLCYSTEINE 20% 4 ML VIAL (200MG/ML) INH SCH (07:55)
[2022-09-07] MEDS ORDERED: BISA10SU PR (08:47)
[2022-09-07] MEDS ORDERED: FLEEENE12 PR (08:47)
[2022-09-07] MEDS ORDERED: COLA100C5 PO (08:47)
[2022-09-07] MEDS ORDERED: MORP1SOL SL (08:47)
[2022-09-07] MEDS ORDERED: IPRA0.00 NEB (08:47)
[2022-09-07] MEDS ORDERED: ONDA4TAB6 PO (08:47)
[2022-09-07] MEDS ORDERED: LEVO1TAB40 PO (08:47)
[2022-09-07] MEDS ORDERED: ACET65SU PR (08:47)
[2022-09-07] MEDS ORDERED: ACET1TAB55 PO (08:47)
[2022-09-07] MEDS ORDERED: ACET-683 PO (08:47)
[2022-09-07] MEDS ORDERED: ATRO1OPD SL (08:47)
[2022-09-07] MEDS ORDERED: HYOS125TA PO (08:47)
[2022-09-07] MEDS ORDERED: ATIV1TAB7 PO (08:47)
[2022-09-07] MEDS: DOCUSATE SODIUM 100MG CAPSULE PO SCH (09:08)
[2022-09-07] MEDS: ACETAMINOPHEN 500 MG TAB PO SCH (09:09)
== END 2022-09-07 12:30 | DRG 871 ==
LOC: EDBD 19:52 → M ED 19:52 → M ED INP 22:34 → M ICU 08-31 02:00 → M MSPAV 08-31 17:00
PROVIDERS: ADMIT Family Medicine; ATTEND Student in an Organized Health Care Education/Training Program
DX: A41.9 Sepsis, unspecified organism (principal); J18.9 Pneumonia, unspecified organism; G93.41 Metabolic encephalopathy; N39.0 Urinary tract infection, site not specified; I50.22 Chronic systolic (congestive) heart failure; J47.0 Bronchiectasis with acute lower respiratory infection; E03.9 Hypothyroidism, unspecified; I48.0 Paroxysmal atrial fibrillation; G30.9 Alzheimer's disease, unspecified; I11.0 Hypertensive heart disease with heart failure; I25.10 Atherosclerotic heart disease of native coronary artery without angina pectoris; Z96.641 Presence of right artificial hip joint; K21.9 Gastro-esophageal reflux disease without esophagitis; R53.1 Weakness; Z79.01 Long term (current) use of anticoagulants; F02.80 Dementia in other diseases classified elsewhere, unspecified severity, without behavioral disturbance, psychotic disturbance, mood disturbance, and anxiety; E11.9 Type 2 diabetes mellitus without complications; Z91.018 Allergy to other foods; Z79.899 Other long term (current) drug therapy; M19.90 Unspecified osteoarthritis, unspecified site; Z98.41 Cataract extraction status, right eye; Z98.42 Cataract extraction status, left eye; F41.9 Anxiety disorder, unspecified; Z85.828 Personal history of other malignant neoplasm of skin; F32.A Depression, unspecified; B96.1 Klebsiella pneumoniae [K. pneumoniae] as the cause of diseases classified elsewhere

== ENCOUNTER → 2022-09-10 | Outpatient (REF) | payer MEDICARE, BC, OTHER ==
[~2022-09-10] MED LIST changes: +ACET-683 PO; +ACET1TAB55 PO; +ACET65SU PR; +ATIV1TAB7 PO; +ATRO1OPD SL; +AZIT500T5 PO; +B-12100020 PO; +BISA10SU PR; +CEFD300CAP PO; +COLA100C5 PO; +FARX1TAB5 PO; +FLEEENE12 PR; +HYOS125TA PO; +IPRA0.00 NEB; +LEVO1TAB40 PO; +MORP1SOL SL; +ONDA4TAB6 PO; +VITA100093 PO; +ZOLO100T PO
== END ==
PROVIDERS: ATTEND Internal Medicine
DX: I50.9 Heart failure, unspecified (principal); J90 Pleural effusion, not elsewhere classified

== ENCOUNTER → 2022-09-16 | Outpatient (REF) ==
[2022-09-16 10:29] LABS: HEMATOCRIT 41.1 % (36.0-47.0); HEMOGLOBIN 12.7 g/dl (12.0-15.5); MEAN CORPUSCULAR HEMOGLOBIN 31.7 pg (27.0-33.0); MEAN CORPUSCULAR HGB CONC 30.9 g/dl (32.0-36.5); MEAN CORPUSCULAR VOLUME 102.5 fl (80.0-96.0); PLATELET COUNT, AUTOMATED 445 10^3/uL (150-450); RED BLOOD COUNT 4.01 10^6/uL (4.00-5.40); WHITE BLOOD COUNT 7.2 10^3/uL (4.0-10.0)
[2022-09-16 11:05] LABS: CALCIUM LEVEL 8.1 MG/DL (8.3-10.6); CREATININE FOR GFR 1.24 MG/DL (0.55-1.30); GLOMERULAR FILTRATION RATE 43.4 (>32); POTASSIUM SERUM 4.2 MMOL/L (3.5-5.1)
[2022-09-16 11:07] LABS: THYROID STIMULATING HORMONE 7.314 uIU/ML (0.55-4.78)
== END ==
PROVIDERS: ATTEND Physician Assistant
DX: I50.9 Heart failure, unspecified (principal)

== ENCOUNTER → 2022-09-19 | Outpatient (REF) | payer MEDICARE, BC, OTHER ==
[2022-09-20 00:13] LABS: CALCIUM LEVEL 8.3 MG/DL (8.3-10.6); CREATININE FOR GFR 1.1 MG/DL (0.55-1.30); GLOMERULAR FILTRATION RATE 49.8 (>32); POTASSIUM SERUM 4.6 MMOL/L (3.5-5.1)
== END ==
PROVIDERS: ATTEND Internal Medicine
DX: U07.1 COVID-19 (principal)

== ENCOUNTER → 2022-09-21 | Outpatient (REF) ==
[2022-09-21 12:22] LABS: CALCIUM LEVEL 8.5 MG/DL (8.3-10.6); CREATININE FOR GFR 1.2 MG/DL (0.55-1.30); POTASSIUM SERUM 4.4 MMOL/L (3.5-5.1)
[2022-09-21 12:28] LABS: HEMATOCRIT 43.3 % (36.0-47.0); HEMOGLOBIN 13.4 g/dl (12.0-15.5); MEAN CORPUSCULAR HEMOGLOBIN 31.5 pg (27.0-33.0); MEAN CORPUSCULAR HGB CONC 30.9 g/dl (32.0-36.5); MEAN CORPUSCULAR VOLUME 101.6 fl (80.0-96.0); PLATELET COUNT, AUTOMATED 407 10^3/uL (150-450); RED BLOOD COUNT 4.26 10^6/uL (4.00-5.40); WHITE BLOOD COUNT 8.1 10^3/uL (4.0-10.0)
== END ==
PROVIDERS: ATTEND Physician Assistant
DX: I50.9 Heart failure, unspecified (principal)

== ENCOUNTER → 2022-09-21 | Outpatient (REF) | payer MEDICARE, BC, OTHER | PROVIDERS: ATTEND Internal Medicine | DX: I50.9 Heart failure, unspecified (principal); J98.4 Other disorders of lung ==

== ENCOUNTER → 2022-09-23 | Outpatient (REF) ==
[2022-09-23 11:45] LABS: HEMOGLOBIN 12.9 g/dl (12.0-15.5); MEAN CORPUSCULAR HEMOGLOBIN 31.2 pg (27.0-33.0); MEAN CORPUSCULAR HGB CONC 30.7 g/dl (32.0-36.5); MEAN CORPUSCULAR VOLUME 101.7 fl (80.0-96.0); PLATELET COUNT, AUTOMATED 407 10^3/uL (150-450); RED BLOOD COUNT 4.13 10^6/uL (4.00-5.40); WHITE BLOOD COUNT 7.4 10^3/uL (4.0-10.0)
[2022-09-23 12:14] LABS: CALCIUM LEVEL 8.7 MG/DL (8.3-10.6); CREATININE FOR GFR 1.41 MG/DL (0.55-1.30); GLOMERULAR FILTRATION RATE 37.4 (>32); POTASSIUM SERUM 4.8 MMOL/L (3.5-5.1); THYROID STIMULATING HORMONE 6.833 uIU/ML (0.55-4.78)
== END ==
PROVIDERS: ATTEND Physician Assistant
DX: I50.9 Heart failure, unspecified (principal)

== ENCOUNTER → 2022-09-29 | Outpatient (REF) | payer BC, MEDICARE, OTHER | PROVIDERS: ATTEND Internal Medicine | DX: J98.4 Other disorders of lung (principal) ==

== ENCOUNTER → 2022-10-07 | Outpatient (REF) | PROVIDERS: ATTEND Physician Assistant | DX: I50.9 Heart failure, unspecified (principal) ==

== ENCOUNTER → 2022-10-14 | Outpatient (REF) | payer MEDICARE, BC, OTHER ==
[~2022-10-14] MED LIST changes: -ATRO1OPD SL; +ATRO2DRO4 SL
== END ==
PROVIDERS: ATTEND Physician Assistant
DX: E03.9 Hypothyroidism, unspecified (principal)

== ENCOUNTER → 2022-10-19 | Outpatient (REF) ==
[2022-10-19 09:20] LABS: HEMATOCRIT 35.4 % (36.0-47.0); HEMOGLOBIN 10.9 g/dl (12.0-15.5); MEAN CORPUSCULAR HEMOGLOBIN 31.6 pg (27.0-33.0); MEAN CORPUSCULAR HGB CONC 30.8 g/dl (32.0-36.5); MEAN CORPUSCULAR VOLUME 102.6 fl (80.0-96.0); PLATELET COUNT, AUTOMATED 293 10^3/uL (150-450); RED BLOOD COUNT 3.45 10^6/uL (4.00-5.40); WHITE BLOOD COUNT 7.5 10^3/uL (4.0-10.0)
[2022-10-19 09:43] LABS: CALCIUM LEVEL 8.8 MG/DL (8.3-10.6); CREATININE FOR GFR 1.12 MG/DL (0.55-1.30); GLOMERULAR FILTRATION RATE 48.8 (>32); POTASSIUM SERUM 4.6 MMOL/L (3.5-5.1)
[2022-10-19 09:47] LABS: THYROID STIMULATING HORMONE 4.021 uIU/ML (0.55-4.78)
== END ==
PROVIDERS: ATTEND Internal Medicine
DX: I50.9 Heart failure, unspecified (principal)

== ENCOUNTER → 2022-10-21 | Outpatient (REF) | PROVIDERS: ATTEND Internal Medicine | DX: I50.9 Heart failure, unspecified (principal); Z53.8 Procedure and treatment not carried out for other reasons ==

== ENCOUNTER → 2022-10-21 | Outpatient (REF) | payer BC, MEDICARE, OTHER | PROVIDERS: ATTEND Physician Assistant | DX: E03.9 Hypothyroidism, unspecified (principal); Z53.8 Procedure and treatment not carried out for other reasons ==

== ENCOUNTER → 2023-04-26 | Outpatient (CLI) | payer MEDICARE, BC, OTHER ==
[2023-04-26 15:04] LABS: THYROID STIMULATING HORMONE 5.158 uIU/ML (0.55-4.78); TOTAL 25(OH) VITAMIN D 48.9 NG/ML (20.0-100.0)
[2023-04-26 15:07] LABS: ALBUMIN 3.8 G/DL (3.2-5.2); BILIRUBIN,TOTAL 0.3 MG/DL (0.3-1.2); CALCIUM LEVEL 9.2 MG/DL (8.3-10.6); CHOLESTEROL RISK RATIO 1.97 (<5); CREATININE FOR GFR 1.35 MG/DL (0.55-1.30); GLOMERULAR FILTRATION RATE 39.3 (>32); HDL CHOLESTEROL 65.4 MG/DL (>40); LDL CHOLESTEROL 41.6 MG/DL (<100); NON-HDL-C 63.6 MG/DL; POTASSIUM SERUM 5.2 MMOL/L (3.5-5.1); TOTAL PROTEIN 7.2 G/DL (5.7-8.2)
[2023-04-26 15:09] LABS: HEMATOCRIT 43.6 % (36.0-47.0); HEMOGLOBIN 13.5 g/dl (12.0-15.5); MEAN CORPUSCULAR HEMOGLOBIN 32.1 pg (27.0-33.0); MEAN CORPUSCULAR VOLUME 103.6 fl (80.0-96.0); PLATELET COUNT, AUTOMATED 278 10^3/uL (150-450); RED BLOOD COUNT 4.21 10^6/uL (4.00-5.40); WHITE BLOOD COUNT 9.4 10^3/uL (4.0-10.0)
[2023-04-26 15:27] LABS: HEMOGLOBIN A1c 7.1 % (4.0-6.0)
== END ==
LOC: EDBD 11:39 → M PLALAB 11:39
PROVIDERS: ATTEND Nurse Practitioner Adult Health
DX: I48.0 Paroxysmal atrial fibrillation (principal); E11.9 Type 2 diabetes mellitus without complications; I25.10 Atherosclerotic heart disease of native coronary artery without angina pectoris; E55.9 Vitamin D deficiency, unspecified; E03.9 Hypothyroidism, unspecified